=== PATIENT | female | born 1955 | race Caucasian/White ===

== ENCOUNTER 2018-03-06 12:56 | Inpatient (IN) | payer MEDICARE, OTHER ==
[2018-03-06] MEDS ORDERED: SODIUM CHLORIDE 0.9% 1,000 ML IV ONE ×2 (13:40→15:20)
[2018-03-06] MEDS ORDERED: diphenhydrAMINE 50 MG/ML 1 ML VIAL IVP STA ×2 (13:40→16:13)
[2018-03-06 14:28] LABS: Basophils % (A) 0 %; Eosinophils % (A) 0 %; HCT 35.9 % (34.0-46.0); HGB 11.9 gm/dL (11.4-16.0); Lymphocytes # (A) 1.1 k/uL (1.0-4.8); Lymphocytes % (A) 15 %; MCH 28.6 pg (25.0-35.0); MCHC 33.1 g/dL (31.0-37.0); MCV 86.3 fL (80.0-100.0); Mean Platelet Volume 7.6; Monocytes # (A) 0.5 k/uL (0-1.0); Monocytes % (A) 6 %; Neutrophils # (A) 6.2 k/uL (1.3-7.7); Neutrophils % (A) 78 %; Platelet Count 231 k/uL (150-450); RBC 4.16 m/uL (3.80-5.40); RDW 13.6 % (11.5-15.5); WBC 7.8 k/uL (3.8-10.6)
[2018-03-06 14:37] LABS: INR 1.1 (<1.2); Partial Thromboplastin Time 23.2 sec (22.0-30.0); Prothrombin Time 10.4 sec (9.0-12.0)
[2018-03-06 14:41] LABS: ALT 50 U/L (9-52); AST 61 U/L (14-36); Alkaline Phosphatase 97 U/L (38-126); Anion Gap 14 mmol/L; Blood Urea Nitrogen 20 mg/dL (7-17); Calcium 8.9 mg/dL (8.4-10.2); Carbon Dioxide 24 mmol/L (22-30); Chloride 106 mmol/L (98-107); Glucose 105 mg/dL (74-99); Potassium 3.6 mmol/L (3.5-5.1); Sodium 144 mmol/L (137-145); Total Bilirubin 1.2 mg/dL (0.2-1.3); Total Protein 6.7 g/dL (6.3-8.2)
--- NOTE | 2018-03-06 14:55 | ED ---
Psych HPI <Efrem Tsang - Last Filed: 03/06/18 18:06> - General Source: family, RN notes reviewed, old records reviewed Mode of arrival: ambulatory <Nikki Stanton - Last Filed: 03/06/18 18:32> - General Chief Complaint: Psychiatric Symptoms Stated Complaint: Mental Health Time Seen by Provider: 03/06/18 13:16 - History of Present Illness Initial Comments: 63-year-old female presents to the emergency department today chief complaint of an acute episode schizophrenia-like tendencies. Apparently patient was at her apartment complex and her siblings were called because she was talking to cars. They stated that she normally lives on her own and has not had an episode like this in many years. She's been stable on medications. They relate that she takes her medications on her own. They report that yesterday evening she was having very slow reactions. Today they report when he found her she was twitching a lot. Patient denies any pain or complaints at this time. They report that she's been on Clozaril pills and recieves them from [facility]. Her last one was 2 weeks ago. She is on 3 other medications that the family does not know. Patient does not know at this time. (iNkki Stanton) - Related Data Allergies Allergy/AdvReac Type Severity Reaction Status Date / Time aspirin Allergy Unknown Verified 03/06/18 13:01 Penicillins Allergy Unknown Verified 03/06/18 13:01 Review of Systems ROS Other: All systems not noted in ROS Statement are negative. <Efrem Tsang - Last Filed: 03/06/18 18:06> ROS Other: All systems not noted in ROS Statement are negative. <Nikki Stanton - Last Filed: 03/06/18 18:32> ROS Statement: Those systems with pertinent positive or pertinent negative responses have been documented in the HPI. Past Medical History Past Medical History: No Reported History History of Any Multi-Drug Resistant Organisms: None Reported Past Surgical History: Hernia Repair, Hysterectomy Past Psychological History: Schizophrenia Smoking Status: Former smoker Past Alcohol Use History: None Reported Past Drug Use History: None Reported <Nikki Stanton - Last Filed: 03/06/18 18:32> General Exam <Efrem Tsang - Last Filed: 03/06/18 18:06> Limitations: no limitations General appearance: alert, in no apparent distress Head exam: Present: atraumatic, normocephalic, normal inspection, other (No evidence of any trauma.) Eye exam: Present: normal appearance, PERRL, EOMI. Absent: scleral icterus, conjunctival injection, periorbital swelling ENT exam: Present: normal exam, mucous membranes moist Neck exam: Present: normal inspection. Absent: tenderness, meningismus, lymphadenopathy Respiratory exam: Present: normal lung sounds bilaterally. Absent: respiratory distress, wheezes, rales, rhonchi, stridor Cardiovascular Exam: Present: regular rate, normal rhythm, normal heart sounds. Absent: systolic murmur, diastolic murmur, rubs, gallop, clicks GI/Abdominal exam: Present: soft, normal bowel sounds. Absent: distended, tenderness, guarding, rebound, rigid Extremities exam: Present: normal inspection, full ROM, normal capillary refill. Absent: tenderness, pedal edema, joint swelling, calf tenderness Back exam: Present: normal inspection Neurological exam: Present: alert, oriented X3, abnormal gait Expanded Patient oriented to: Present: person Speech: Present: fluid speech Cranial nerves: EOM's Intact: Normal, Facial Sensation: Normal Cerebellar function: Finger to Nose: Abnormal Left (Patient unable to perform finger-nose that she is having dystonic movements.) Upper motor neuron: Pronator Drift: Abnormal Left (Unable to perform due to dystonic movements.) Sensory exam: Upper Extremity Light Touch: Normal, Lower Extremity Light Touch: Normal Motor strength exam: RUE: 5, LUE: 5, RLE: 5, LLE: 5 Eye Response: (4) open spontaneously Motor Response: (6) obeys commands Verbal Response: (5) oriented Brian Total: 15 Psychiatric exam: Present: normal mood, other (Patient's history is that she's been talking to her cars in the parking lot she lives. She's been altered and not wanting to let her family come in to her apartment today. Stating that people are coming after her.). Absent: normal affect Skin exam: Present: warm, dry, intact, normal color. Absent: rash <Nikki Stanton - Last Filed: 03/06/18 18:32> - General Exam Comments Initial Comments: Patient is a 63-year-old female. Exhibiting twitching like movement. Patient is alert and oriented. Temp any date of and where she is at. (Nikki Stanton) Course <Efrem Tsang - Last Filed: 03/06/18 18:06> <Nikki Stanton - Last Filed: 03/06/18 18:32> Vital Signs 03/06/18 03/06/18 12:57 16:00 Temperature 98.2 F 98.0 F Pulse Rate 90 57 L Respiratory 20 16 Rate Blood Pressure 140/65 O2 Sat by Pulse 98 Oximetry - Reevaluation(s) Reevaluation #1: 03/06/18 18:06 Patient reevaluated by myself, Dr. Tsang. Patient resting comfortably in bed. Family is updated. Case was discussed in detail with Dr. Calderon, who will admit for Dr. Garcia. Neurology and psychiatry will be placed on consult. (Efrem Tsang) 03/06/18 14:54 Patient is at route reevaluated this time. She is having less of a dystonic reaction after receiving Benadryl. Resting comfortably in bed with her siblings at her side. (Nikki Stanton) Medical Decision Making - Lab Data Result diagrams: 03/06/18 14:10 03/06/18 14:10 <Efrem Tsang - Last Filed: 03/06/18 18:06> - Lab Data Result diagrams: 03/06/18 14:10 03/06/18 14:10 - Radiology Data Radiology results: report reviewed <Nikki Stanton - Last Filed: 03/06/18 18:32> - Medical Decision Making 63-year-old female with history of long-standing schizophrenia to [place] presents emergency Department a chief complaint of hearing voices and talking to cars. Family brought her in. They report she's not had an episode of acute psychosis in the past 20 years. They state that she received her meds from [facility]. She is on 150 mg of Clozaril. Patient at this time is alert and oriented. She initially distributed dystonic reactions. I gave the patient IV Benadryl and check lab work. EKG showed no significant changes. Patient did have an elevated CK. Likely related to the dystonic reactions. Was given 2 L of fluid. She does suffer positive ketones in her urine. No significant renal damage due to the elevated CK. Patient did have some improvement with the dystonic reactions after 50 mg of Benadryl. She is able to lay in bed. Family states that she is somewhat to her baseline but still slightly altered. She seems to be very confused. CT brain computed tomography scan was completed. There is evidence of frontal atrophy likely related to chronic changes or remote trauma. Patient has had no history of falls or any head trauma. She has no signs or symptoms of head trauma including bruising or swelling on her scalp. I discussed the case with psychiatry. They evaluated the patient and felt that she needed admitted medically. Discussed with Dr. Tsang who also examined the patient. We will admit the patient medically frontal mental status , dehydration, elevated CK. When I reevaluated the patient she has been resting comfortably bed. She states that she is not hearing any voices. ( Nikki Stanton) - Lab Data Lab Results 03/06/18 03/06/18 03/06/18 Range/Units 14:10 14:10 14:10 WBC 7.8 (3.8-10.6) k/uL RBC 4.16 (3.80-5.40) m/uL Hgb 11.9 (11.4-16.0) gm/dL Hct 35.9 (34.0-46.0) % MCV 86.3 (80.0-100.0) fL MCH 28.6 (25.0-35.0) pg MCHC 33.1 (31.0-37.0) g/dL RDW 13.6 (11.5-15.5) % Plt Count 231 (150-450) k/uL Neutrophils % 78 % Lymphocytes % 15 % Monocytes % 6 % Eosinophils % 0 % Basophils % 0 % Neutrophils # 6.2 (1.3-7.7) k/uL Lymphocytes # 1.1 (1.0-4.8) k/uL Monocytes # 0.5 (0-1.0) k/uL Eosinophils # 0.0 (0-0.7) k/uL Basophils # 0.0 (0-0.2) k/uL PT (9.0-12.0) sec INR (<1.2) APTT (22.0-30.0) sec Sodium 144 (137-145) mmol/L Potassium 3.6 (3.5-5.1) mmol/L Chloride 106 (98-107) mmol/L Carbon Dioxide 24 (22-30) mmol/L Anion Gap 14 mmol/L BUN 20 H (7-17) mg/dL Creatinine 0.69 (0.52-1.04) mg/dL Est GFR (CKD-EPI)AfAm >90 (>60 ml/min/1.73 sqM) Est GFR (CKD-EPI)NonAf >90 (>60 ml/min/1.73 sqM) Glucose 105 H (74-99) mg/dL Calcium 8.9 (8.4-10.2) mg/dL Total Bilirubin 1.2 (0.2-1.3) mg/dL AST 61 H (14-36) U/L ALT 50 (9-52) U/L Alkaline Phosphatase 97 (38-126) U/L Total Creatine Kinase 1257 H (30-135) U/L CK-MB (CK-2) 10.2 H* (0.0-2.4) ng/mL CK-MB (CK-2) Rel Index 0.8 Troponin I <0.012 (0.000-0.034) ng/mL Total Protein 6.7 (6.3-8.2) g/dL Albumin 4.0 (3.5-5.0) g/dL Urine Color Urine Appearance (Clear) Urine pH (5.0-8.0) Ur Specific [place] (1.001-1.035) Urine Protein (Negative) Urine Glucose (UA) (Negative) Urine Ketones (Negative) Urine Blood (Negative) Urine Nitrite (Negative) Urine Bilirubin (Negative) Urine Urobilinogen (<2.0) mg/dL Ur Leukocyte Esterase (Negative) Urine RBC (0-5) /hpf Urine WBC (0-5) /hpf Ur Squamous Epith Cells (0-4) /hpf Urine Bacteria (None) /hpf Urine Mucus (None) /hpf Urine Opiates Screen (NotDetected) Ur Oxycodone Screen (NotDetected) Urine Methadone Screen (NotDetected) Ur Propoxyphene Screen (NotDetected) Ur Barbiturates Screen (NotDetected) U Tricyclic Antidepress (NotDetected) Ur Phencyclidine Scrn (NotDetected) Ur Amphetamines Screen (NotDetected) U Methamphetamines Scrn (NotDetected) U Benzodiazepines Scrn (NotDetected) Urine Cocaine Screen (NotDetected) U Marijuana (THC) Screen (NotDetected) 03/06/18 03/06/18 Range/Units 14:10 16:55 WBC (3.8-10.6) k/uL RBC (3.80-5.40) m/uL Hgb (11.4-16.0) gm/dL Hct (34.0-46.0) % MCV (80.0-100.0) fL MCH (25.0-35.0) pg MCHC (31.0-37.0) g/dL RDW (11.5-15.5) % Plt Count (150-450) k/uL Neutrophils % % Lymphocytes % % Monocytes % % Eosinophils % % Basophils % % Neutrophils # (1.3-7.7) k/uL Lymphocytes # (1.0-4.8) k/uL Monocytes # (0-1.0) k/uL Eosinophils # (0-0.7) k/uL Basophils # (0-0.2) k/uL PT 10.4 (9.0-12.0) sec INR 1.1 (<1.2) APTT 23.2 (22.0-30.0) sec Sodium (137-145) mmol/L Potassium (3.5-5.1) mmol/L Chloride (98-107) mmol/L Carbon Dioxide (22-30) mmol/L Anion Gap mmol/L BUN (7-17) mg/dL Creatinine (0.52-1.04) mg/dL Est GFR (CKD-EPI)AfAm (>60 ml/min/1.73 sqM) Est GFR (CKD-EPI)NonAf (>60 ml/min/1.73 sqM) Glucose (74-99) mg/dL Calcium (8.4-10.2) mg/dL Total Bilirubin (0.2-1.3) mg/dL AST (14-36) U/L ALT (9-52) U/L Alkaline Phosphatase (38-126) U/L Total Creatine Kinase (30-135) U/L CK-MB (CK-2) (0.0-2.4) ng/mL CK-MB (CK-2) Rel Index Troponin I (0.000-0.034) ng/mL Total Protein (6.3-8.2) g/dL Albumin (3.5-5.0) g/dL Urine Color Yellow Urine Appearance Clear (Clear) Urine pH 6.0 (5.0-8.0) Ur Specific [place] 1.026 (1.001-1.035) Urine Protein Trace H (Negative) Urine Glucose (UA) Negative (Negative) Urine Ketones 4+ H (Negative) Urine Blood Negative (Negative) Urine Nitrite Negative (Negative) Urine Bilirubin Negative (Negative) Urine Urobilinogen 2.0 (<2.0) mg/dL Ur Leukocyte Esterase Trace H (Negative) Urine RBC 1 (0-5) /hpf Urine WBC 1 (0-5) /hpf Ur Squamous Epith Cells <1 (0-4) /hpf Urine Bacteria Rare H (None) /hpf Urine Mucus Rare H (None) /hpf Urine Opiates Screen Not Detected (NotDetected) Ur Oxycodone Screen Not Detected (NotDetected) Urine Methadone Screen Not Detected (NotDetected) Ur Propoxyphene Screen Not Detected (NotDetected) Ur Barbiturates Screen Not Detected (NotDetected) U Tricyclic Antidepress Not Detected (NotDetected) Ur Phencyclidine Scrn Not Detected (NotDetected) Ur Amphetamines Screen Not Detected (NotDetected) U Methamphetamines Scrn Not Detected (NotDetected) U Benzodiazepines Scrn Not Detected (NotDetected) Urine Cocaine Screen Not Detected (NotDetected) U Marijuana (THC) Screen Not Detected (NotDetected) 03/06/18 17:22 EKG performed at 1606 shows sinus bradycardia with first-degree AV block. 5. Left anterior fascicular block. Biphasic block. Abnormal EKG noted. Ventricular rate 50 bpm. MT interval 232. QRS duration 154. QT QTc is 514/ 504. (Nikki Stanton) - Radiology Data Findings of extra-axial fluid over the frontal lobes could be due to remote trauma or possibly atrophy. No acute abdomen or maladies. Comparison of old films of benefit. Consider MRI. (Nikki Stanton) Disposition <Efrem Tsang - Last Filed: 03/06/18 18:06> Is patient prescribed a controlled substance at d/c from ED?: No If prescribed controlled substance>3 days was MAPS reviewed?: No When asked, does pt state using other controlled substances?: No Time of Disposition: 18:24 <Nikki Stanton - Last Filed: 03/06/18 18:32> Clinical Impression: Dehydration, Dystonic movements, Elevated CPK, Altered mental state Disposition: ADMITTED IP TO THIS [facility] Condition: Good Referrals: Sonia Echeverria MD [Primary Care Provider] - 1-2 days
[2018-03-06 15:05] LABS: Creatine Kinase 1257 U/L (30-135)
--- NOTE | 2018-03-06 15:05 | XR ---
EXAMINATION TYPE: XR chest 2V DATE OF EXAM: 03/06/2018 COMPARISON: NONE HISTORY: Altered mental status TECHNIQUE: Frontal and lateral views of the chest are obtained. FINDINGS: There is no focal air space opacity, pleural effusion, or pneumothorax seen. The cardiac silhouette size is possibly enlarged, exam is somewhat expiratory and rotated. The osseous structur es are intact. IMPRESSION: Suspect borderline enlarged heart. Expiratory rotated exam, follow-up as indicated.
[2018-03-06 15:18] LABS: Troponin I <0.012 ng/mL (0.000-0.034)
[2018-03-06 15:24] LABS: Creatine Kinase MB 10.2 ng/mL (0.0-2.4)
[2018-03-06] MEDS: SODIUM CHLORIDE 0.9% 1,000 ML IV SCH ×2 (15:32→23:48)
[2018-03-06 17:13] LABS: Appearance,Urine Clear (Clear); Bacteria,Urine Rare /hpf; Bilirubin,Urine Negative (Negative); Blood,Urine Negative (Negative); Color,Urine Yellow; Glucose,Urine (UA) Negative (Negative); Ketones,Urine 4+ (Negative); Leukocyte Esterase,Urine Trace (Negative); Mucus,Urine Rare /hpf; Nitrite,Urine Negative (Negative); Protein,Urine Trace (Negative); RBC,Urine 1 /hpf (0-5); Specific Gravity,Urine 1.026 (1.001-1.035); Squamous Epithelial Cell,Urine <1 /hpf (0-4); WBC,Urine 1 /hpf (0-5)
[2018-03-06 17:18] LABS: Amphetamine Screen,Urine Not Detected (NotDetected); Barbiturate Screen,Urine Not Detected (NotDetected); Benzodiazepines Screen,Urine Not Detected (NotDetected); Cocaine Screen,Urine Not Detected (NotDetected); Methadone Screen, Urine Not Detected (NotDetected); Opiate Screen,Urine Not Detected (NotDetected); Oxycodone Screen, Urine Not Detected (NotDetected); Phencyclidine Screen,Urine Not Detected (NotDetected); Tricyclic Antidepressant,Urine Not Detected (NotDetected); Urn Cannabinoid Scrn Not Detected (NotDetected)
--- NOTE | 2018-03-06 17:45 | CT ---
EXAMINATION TYPE: CT brain wo con DATE OF EXAM: 03/06/2018 COMPARISON: NONE HISTORY: Altered mental status. CT DLP: 1818.1 mGycm Automated exposure control for dose reduction was used. Helical imaging through the brain FINDINGS: There is no hemorrhage or hydrocephalus. Velasquez-white differentiation is maintained. No mass effect. Or bits show symmetric appearance. Mild atrophy is likely age-related. Extra-axial cerebral spinal fluid spaces somewhat prominent at the level of the frontal lobes. Cerumen present in the auditor tax y canal on the left. IMPRESSION: FINDINGS OF EXTRA-AXIAL FLUID OVER THE FRONTAL LOBES COULD BE DUE TO REMOTE TRAUMA OR POSSIBLY ATROPH Y . No acute abnormality. Comparison with old films would be of benefit if available. Consider MRI.
[2018-03-06] MEDS ORDERED: ONDANSETRON 4 MG/2 ML VIAL IVP PRN (18:25)
[2018-03-06] MEDS ORDERED: NALOXONE 0.4 MG/ML 1 ML VIAL IV PRN (18:25)
[2018-03-06] MEDS ORDERED: oxyCODONE-APAP 5-325MG 1 EACH TAB PO PRN (18:25)
[2018-03-06] MEDS ORDERED: KETOROLAC 30 MG/ML 1 ML VIAL IVP PRN (18:25)
[2018-03-06] MEDS ORDERED: ACETAMINOPHEN TAB 325 MG TAB PO PRN (18:25)
[2018-03-06] MEDS ORDERED: LORazepam 2 MG/ML INJ IV PRN (18:25)
--- NOTE | 2018-03-07 00:31 | P.HPIM ---
History of Present Illness H&P Date: 03/06/18 Chief Complaint: Acute psychosis Patient is a 63-year-old female with a known history of schizophrenia for the past 20 years with no recent active issues was brought to the hospital due to acute psychosis. Patient was apparently talking to cars at her apartment and her siblings were called.They stated that she normally lives on her own and has not had an episode like this in many years. She's been stable on medications. They relate that she takes her medications on her own. They report that yesterday evening she was having very slow reactions. Today they report when he found her she was twitching a lot. Patient denies any pain or complaints at this time. They report that she's been on Clozaril pills and recieves them from [facility]. Her last one was 2 weeks ago. She is on 3 other medications that the family does not know at this time. Chest x-ray showed borderline cardio megaly UA negative for infection. Ketones positive CT head showed extra-axial fluid over the frontal lobes could be due to remote trauma or possible atrophy. No acute abnormality noted. Comparison to old imaging was recommended. CPK 1257 Review of Systems Complete review of systems could not be obtained from the patient Past Medical History Past Medical History: No Reported History History of Any Multi-Drug Resistant Organisms: None Reported Past Surgical History: Hernia Repair, Hysterectomy Past Psychological History: Schizophrenia Smoking Status: Never smoker Past Alcohol Use History: None Reported Past Drug Use History: None Reported Medications and Allergies Home Medications Medication Instructions Recorded Confirmed Type Unable To Assess [Unable to Assess] 03/06/18 03/06/18 History Allergies Allergy/AdvReac Type Severity Reaction Status Date / Time aspirin Allergy Unknown Verified 03/06/18 13:01 Penicillins Allergy Unknown Verified 03/06/18 13:01 Physical Exam Vitals: Vital Signs Temp Pulse Pulse Resp BP BP Pulse Ox 03/06/18 19:38 98 F 57 L 20 151/77 97 03/06/18 19:09 99.6 F 62 18 140/62 98 03/06/18 16:00 98.0 F 57 L 16 03/06/18 12:57 98.2 F 90 20 140/65 98 Intake and Output 03/06/18 03/06/18 03/06/18 06:59 14:59 22:59 Other: Weight 113.398 kg 91.626 kg PHYSICAL EXAMINATION: Patient is lying in the bed comfortably, no acute distress, awake alert but could not provide any history. Patient does have tremors and shaking movements. HEENT: Normocephalic. Neck is supple. Pupils reactive. Nostrils clear. Oral cavity is moist. Ears reveal no drainage. Neck reveals no JVD, carotid bruits, or thyromegaly. CHEST EXAMINATION: Trachea is central. Symmetrical expansion. Lung toth clear to auscultation and percussion. CARDIAC: Normal S1, S2 with no gallops. No murmurs ABDOMEN: Soft. Bowel sounds normal. No organomegaly. No abdominal bruits. Extremities: reveal no edema. No clubbing or cyanosis Neurologically awake, alert. Able to move all extremities. Not oriented.. No focal deficits noted Skin: No rash or skin lesions. Psychiatric: Not cooperative Musculoskeletal: No joint swelling or deformity. Normal range of motion. Results CBC & Chem 7: 03/06/18 14:10 03/06/18 14:10 Labs: Abnormal Lab Results - Last 24 Hours (Table) 03/06/18 03/06/18 03/06/18 Range/Units 14:10 14:10 16:55 BUN 20 H (7-17) mg/dL Glucose 105 H (74-99) mg/dL AST 61 H (14-36) U/L Total Creatine Kinase 1257 H (30-135) U/L CK-MB (CK-2) 10.2 H* (0.0-2.4) ng/mL Urine Protein Trace H (Negative) Urine Ketones 4+ H (Negative) Ur Leukocyte Esterase Trace H (Negative) Urine Bacteria Rare H (None) /hpf Urine Mucus Rare H (None) /hpf Thrombosis Risk Factor Assmnt - Choose All That Apply Any of the Below Risk Factors Present?: Yes Each Factor Represents 1 point: Obesity (BMI >25) Other Risk Factors: Yes Each Risk Factor Represents 2 Points: Age 61-74 years Thrombosis Risk Factor Assessment Total Risk Factor Score: 3 Thrombosis Risk Factor Assessment Level: Moderate Risk Assessment and Plan Assessment: Acute psychosis Dystonic movements History of schizophrenia for the past 20 years Mild dehydration Mild rhabdomyolysis with elevated CPK Altered mental status secondary to psychosis Plan: Patient was started on Ativan when necessary for agitation. Psychiatry evaluation. Bedside sitter and follow up closely. Gentle hydration but patient does not want to keep IV line. Further recommendations based on the clinical course. Follow-up precautions and close monitoring. Time with Patient: Greater than 30
[2018-03-07] MEDS: PANTOPRAZOLE 40 MG/10 ML VIAL IV SCH (08:09)
[2018-03-07 11:40] LABS: Basophils % (A) 0 %; Eosinophils # (A) 0.1 k/uL (0-0.7); Eosinophils % (A) 1 %; HCT 32.2 % (34.0-46.0); HGB 10.4 gm/dL (11.4-16.0); Lymphocytes # (A) 1.2 k/uL (1.0-4.8); Lymphocytes % (A) 18 %; MCHC 32.1 g/dL (31.0-37.0); MCV 87.2 fL (80.0-100.0); Mean Platelet Volume 7.6; Monocytes # (A) 0.4 k/uL (0-1.0); Monocytes % (A) 6 %; Neutrophils # (A) 4.8 k/uL (1.3-7.7); Neutrophils % (A) 75 %; Platelet Count 183 k/uL (150-450); RDW 13.6 % (11.5-15.5); WBC 6.5 k/uL (3.8-10.6)
[2018-03-07 11:54] LABS: Anion Gap 13 mmol/L; Blood Urea Nitrogen 12 mg/dL (7-17); Calcium 8.1 mg/dL (8.4-10.2); Carbon Dioxide 21 mmol/L (22-30); Chloride 109 mmol/L (98-107); Glucose 93 mg/dL (74-99); Potassium 3.6 mmol/L (3.5-5.1); Sodium 143 mmol/L (137-145)
--- NOTE | 2018-03-07 14:42 | P.CNNES ---
History of Present Illness Consult date: 03/07/18 Requesting physician: Ronnie Calderon Reason for Consult: Altered mental status History of Present Illness: Patient is a 63-year-old female who is being evaluated by the neurology service on 03/07/2018 per the request of Dr. Calderon for altered mental status. Patient has known history of schizophrenia for the past 20 years. Reportedly, patient is able to take her on medication. Patient was apparently talking to converse at her apartment and her siblings were called. Patient lives alone and has not had an episode like this in many years according to the family. Family reports when they found her she was twitching. Family states patient has been on Clozaril pills and receives them from [facility]. Family states patient is on other medication as well but they do not know what they are. Reportedly, patient also has been having dystonic movements. Patient was recently given Ativan and no dystonic movements were seen on my visit. Computed tomography scan of the brain was done which showed extra-axial fluid over the frontal lobes could be due to remote trauma or possible atrophy. There was no acute abnormality on computed tomography scan of the brain. Recommendation is to obtain an MRI. Vital signs on admission were temperature 98.0, pulse 57, respirations 20, what pressure 151/77, pulse ox 97% on room air. Labs on admission showed BUN 20, creatinine 0.69, glucose 105, CK-MB 10.2. Urinalysis was negative for infection. At the time of my evaluation, patient's resting comfortably in bed and appears to be in no acute distress. Patient awakens to questions and quickly drifts back off to sleep. Patient was recently given Ativan. Review of Systems REVIEW OF SYSTEMS: Otherwise unremarkable and noncontributory. Past Medical History Past Medical History: No Reported History History of Any Multi-Drug Resistant Organisms: None Reported Past Surgical History: Hernia Repair, Hysterectomy Past Psychological History: Schizophrenia Smoking Status: Never smoker Past Alcohol Use History: None Reported Past Drug Use History: None Reported Medications and Allergies Home Medications Medication Instructions Recorded Confirmed Type Furosemide [Lasix] 20 mg PO DAILY PRN 03/07/18 03/07/18 History Levothyroxine Sodium [Synthroid] 75 mcg PO DAILY 03/07/18 03/07/18 History Losartan/Hydrochlorothiazide 1 tab PO DAILY 03/07/18 03/07/18 History [Losartan-Hctz 50-12.5 mg Tab] Sertraline [Zoloft] 100 mg PO DAILY 03/07/18 03/07/18 History cloZAPine [Clozaril] 50 mg PO HS 03/07/18 03/07/18 History cloZAPine [Clozaril] 100 mg PO HS 03/07/18 03/07/18 History Allergies Allergy/AdvReac Type Severity Reaction Status Date / Time aspirin Allergy Unknown Verified 03/07/18 12:42 Penicillins Allergy Unknown Verified 03/07/18 12:42 Physical Examination - Vital Signs Vital Signs: Vital Signs Temp Pulse Pulse Resp BP BP Pulse Ox 03/07/18 08:00 46 L 20 03/07/18 06:22 98 F 46 L 20 125/60 97 03/06/18 23:00 97.8 F 57 L 20 132/64 94 L 03/06/18 19:38 98 F 57 L 20 151/77 97 03/06/18 19:09 99.6 F 62 18 140/62 98 03/06/18 16:00 98.0 F 57 L 16 Intake and Output 03/06/18 03/07/18 03/07/18 22:59 06:59 14:59 Intake Total 250 100 Output Total 500 Balance 250 -400 Intake: Oral 250 100 Output: Urine 500 Other: # Voids 0 Weight 91.626 kg PHYSICAL EXAM: GENERAL APPEARANCE: Patient is a well-developed, female who appears to be in no acute distress. HEENT: Normocephalic, atraumatic, no facial asymmetry is seen. Neck is supple with no masses felt. CARDIOVASCULAR: Regular rate and rhythm. ABDOMEN: Nontender, nondistended. EXTREMITIES: Show no edema or clubbing. NEUROLOGICAL EXAM: Patient is awake, alert, and oriented 2. Patient not sure what year this is. Speech and language are normal. Strength is full in all 4 extremities. Sensory exam to light touch was limited due to patient quickly drifting back off to sleep. No obvious facial asymmetry is noted. No tremors or seizure-like activity noted. Results - Laboratory Findings CBC and BMP: 03/07/18 11:22 03/07/18 11:22 Abnormal Lab Findings: Abnormal Labs 03/06/18 03/06/18 03/06/18 14:10 14:10 16:55 RBC Hgb Hct Chloride Carbon Dioxide BUN 20 H Glucose 105 H Calcium AST 61 H Total Creatine Kinase 1257 H CK-MB (CK-2) 10.2 H* Urine Protein Trace H Urine Ketones 4+ H Ur Leukocyte Esterase Trace H Urine Bacteria Rare H Urine Mucus Rare H 03/07/18 03/07/18 11:22 11:22 RBC 3.70 L Hgb 10.4 L Hct 32.2 L Chloride 109 H Carbon Dioxide 21 L BUN Glucose Calcium 8.1 L AST Total Creatine Kinase CK-MB (CK-2) Urine Protein Urine Ketones Ur Leukocyte Esterase Urine Bacteria Urine Mucus Assessment and Plan Plan: Impression: 1. Acute psychosis 2. Dystonic movements 3. History of schizophrenia 4. Rhabdomyolysis 5. Abnormal CT Recommendations: It does appear patient is having an episode of acute psychosis with dystonic movements. It is not clear whether patient has been taking her medications as recommended. Computed tomography scan shows extra-axial fluid in the frontal lobes. I will order an MRI for further evaluation. No obvious lateralizing weakness on exam. No facial asymmetry. Psych consult noted. Most likely this altered mental status is related to her acute psychosis. Can use Benadryl 25 mg IM or IVP as needed for dystonic movements. Continue neurological checks. I will continue to follow with you. Further recommendations following the MRI. Thank you for allowing me to participate in the care of your patient. Feel free to call with any questions or concerns. I performed an examination of the patient and discussed the management with the DISH STACKER. I have reviewed the DISH STACKER notes and agree with the findings and plan of care.
[2018-03-07] MEDS: LEVOTHYROXINE 75 MCG TAB PO SCH (16:04)
[2018-03-07] MEDS: SERTRALINE 100 MG TAB PO SCH (16:04)
[2018-03-07] MEDS: LOSARTAN-HCTZ 50-12.5 MG 1 EACH TAB PO SCH (16:04)
[2018-03-07] MEDS: SODIUM CHLORIDE 0.9% 1,000 ML IV SCH (17:57)
--- NOTE | 2018-03-07 19:45 | CONS ---
CONSULTATION DATE OF SERVICE/DICTATION: 03/07/2018. IDENTIFYING DATA: This patient is a 63-year-old single female who was admitted to the hospital with acute changes in her behavior. HISTORY OF PRESENT ILLNESS: The patient does have an established diagnosis of schizophrenia. She has been treated with Clozaril for numerous years and attends treatment at [facility]. The patient presented to the hospital with acute symptoms of psychosis. There are reports that she had symptoms resembling a dystonic reaction, shaking. Laboratory studies revealed an elevated CPK of 1257. Nursing reports that the patient was agitated, not oriented and could not provide any history. Ativan was used to calm her and that has been effective at 0.5 mg IV. With me this morning, the patient is found in bed. She has her eyes closed. She is verbally arousable. She is able to state her name. She is able to state the current location. She is aware that she is in [facility], but does not know why, and states that she woke up here at approximately 3:00 am. She is able to acknowledge that she is on Clozaril and Zoloft 150 mg and 100 mg respectively. Initially, she indicates that she has been taking her medications and then later states she may have been missing doses. During interview, her brother arrives and he attempted to provide collateral information. The patient has been residing in her own apartment and he checked her medication bottles and he feels that the amount in the bottle indicates she has been taking her medicine. He did not find any loose pills lying around or in the garbage. The patient describes her mood as being weird. She indicates that she is having some rib pain. She reports no thoughts of harming herself or others. She indicates she is not experiencing any hallucinations. Again, nursing staff indicated the patient had been agitated earlier last evening, making derogatory statements and attempting to harm staff. PAST PSYCHIATRIC HISTORY: Per family, the patient has been hospitalized numerous times on mental health units. It appears her symptoms of psychosis are emerged at age 17. She has been on Clozaril for numerous years and has done quite well. Her brother reports she has been in the same apartment for 10 years. The patient indicates she has had no history of suicide attempts. It is unclear what other psychotropic medication she may have used in the past prior to Clozaril. PAST MEDICAL HISTORY: She is treated for hypertension and hypothyroidism. She is on Synthroid, Lasix and losartan hydrochlorothiazide. ALLERGIES: ASPIRIN, PENICILLINS. CHEMICAL DEPENDENCY HISTORY: No reported substance use. SOCIAL HISTORY: The patient is single. She has no children. She resides in her own apartment. She is on disability income. Her brother is her payee. MENTAL STATUS EXAM: The patient is a female appearing her stated age. She has short white hair. She is lying in bed in no acute distress. During our interview, she demonstrates some tremor of her involving her head and upper extremities that is low-amplitude in nature. She for the most part, keeps her eyes closed. She opens her eyes only twice during our conversation. She is dressed in hospital attire and is covered in a blanket. She indicates that her mood is "weird." She denies having any suicidal or homicidal ideation. She denies having any auditory or visual hallucinations. She states that she feels safe. She is oriented to person, place, day, month, but did not name the year. Insight and judgment impaired. She demonstrated no verbal or physical aggressiveness during my interaction with her. IMPRESSION: Schizophrenia, chronic, suspect delirium at this time. PLAN: The patient seems to be demonstrating a waxing and waning ability to provide orientation information which is classic for delirium. Nursing indicates that the patient was not oriented and could not provide historical information last evening or even this morning. The family believes that the patient has been taking her medication appropriately, but there is no strict oversight. Her only lab abnormality at this time is the elevated CPK. It is possible with a clozapine overdose the patient could experience rhabdomyolysis as well as seizure. The patient is going to be seeing Neurology. The head CT report seems to be consistent with someone who has chronic schizophrenia regarding atrophy of the brain. At this point, we will order a Clozaril level and not restart the medication yet. Normally Clozaril is known for not causing symptoms of dystonia or tremor. She is receiving IV hydration. Ativan appears to be effectively calming her. We will continue to follow her closely. MMODL / IJN: [id number] /
[2018-03-07] MEDS: cloZAPine 100 MG TAB PO SCH (20:56)
[2018-03-07] MEDS: cloZAPine 25 MG TAB PO SCH (20:56)
[2018-03-07] MEDS: HEPARIN SODIUM,PORCINE 5,000 UNIT/ML 1 ML VIAL SQ SCH (20:56)
--- NOTE | 2018-03-08 00:55 | P.PN ---
Subjective Progress Note Date: 03/07/18 Principal diagnosis: Acute psychosis and dystonic movements Patient is a 63-year-old female with a known history of schizophrenia for the past 20 years with no recent active issues was brought to the hospital due to acute psychosis. Patient was apparently talking to cars at her apartment and her siblings were called.They stated that she normally lives on her own and has not had an episode like this in many years. She's been stable on medications. They relate that she takes her medications on her own. They report that yesterday evening she was having very slow reactions. Today they report when he found her she was twitching a lot. Patient denies any pain or complaints at this time. They report that she's been on Clozaril pills and recieves them from [facility]. Her last one was 2 weeks ago. She is on 3 other medications that the family does not know at this time. Chest x-ray showed borderline cardio megaly UA negative for infection. Ketones positive CT head showed extra-axial fluid over the frontal lobes could be due to remote trauma or possible atrophy. No acute abnormality noted. Comparison to old imaging was recommended. CPK 1257 03/07/2018 Patient is able to open her eyes and and response to simple questions with one- word. Slightly improved clinically otherwise. Neurology has seen the patient and MRI of the brain was ordered due to abdominal CT head. Otherwise patient will be started back on her home medications obtained from her pharmacy. Patient is unable to eat very well. No complaints of chest pain or shortness of breath. Complete review of systems could not be obtained from the patient. Current medications reviewed. Objective - Vital Signs Vital signs: Vital Signs Temp 98.0 F 03/07/18 15:00 Pulse 61 03/07/18 15:24 Resp 20 03/07/18 15:24 BP 118/65 03/07/18 15:00 Pulse Ox 96 03/07/18 15:00 Intake & Output 03/06/18 03/07/18 03/07/18 18:59 06:59 18:59 Intake Total 350 200 Output Total 500 Balance -150 200 Weight 113.398 kg 91.626 kg Intake: Oral 350 200 Output: Urine 500 Other: # Voids 0 - Exam Patient is lying in the bed comfortably, no acute distress, awake alert . Able to respond with single words.. HEENT: Normocephalic. Neck is supple. Pupils reactive. Nostrils clear. Oral cavity is moist. Ears reveal no drainage. Neck reveals no JVD, carotid bruits, or thyromegaly. CHEST EXAMINATION: Trachea is central. Symmetrical expansion. Lung toth clear to auscultation and percussion. CARDIAC: Normal S1, S2 with no gallops. No murmurs ABDOMEN: Soft. Bowel sounds normal. No organomegaly. No abdominal bruits. Extremities: reveal no edema. No clubbing or cyanosis Neurologically awake, alert. Able to move all extremities. Not oriented.. No focal deficits noted Skin: No rash or skin lesions. Psychiatric: Not cooperative Musculoskeletal: No joint swelling or deformity. Normal range of motion. - Labs CBC & Chem 7: 03/07/18 11:22 03/07/18 11:22 Labs: Abnormal Lab Results - Last 24 Hours (Table) 03/06/18 03/07/18 03/07/18 Range/Units 16:55 11:22 11:22 RBC 3.70 L (3.80-5.40) m/uL Hgb 10.4 L (11.4-16.0) gm/dL Hct 32.2 L (34.0-46.0) % Chloride 109 H (98-107) mmol/L Carbon Dioxide 21 L (22-30) mmol/L Calcium 8.1 L (8.4-10.2) mg/dL Urine Protein Trace H (Negative) Urine Ketones 4+ H (Negative) Ur Leukocyte Esterase Trace H (Negative) Urine Bacteria Rare H (None) /hpf Urine Mucus Rare H (None) /hpf Assessment and Plan Assessment: Acute psychosis Dystonic movements History of schizophrenia for the past 20 years Mild dehydration Mild rhabdomyolysis with elevated CPK Altered mental status secondary to psychosis Abnormal CT head. MRI was ordered. Plan: Patient was started on Ativan when necessary for agitation. Psychiatry evaluation. Bedside sitter and follow up closely. Neurology is following as well. Gentle hydration but patient does not want to keep IV line. Further recommendations based on the clinical course. Continue with close monitoring.. Time with Patient: Greater than 30
[2018-03-08] MEDS: LEVOTHYROXINE 75 MCG TAB PO SCH (06:21)
[2018-03-08] MEDS: PANTOPRAZOLE 40 MG/10 ML VIAL IV SCH (07:50)
[2018-03-08] MEDS: HEPARIN SODIUM,PORCINE 5,000 UNIT/ML 1 ML VIAL SQ SCH ×2 (07:50→21:24)
[2018-03-08] MEDS: LOSARTAN-HCTZ 50-12.5 MG 1 EACH TAB PO SCH (07:50)
[2018-03-08] MEDS: SODIUM CHLORIDE 0.9% 1,000 ML IV SCH ×2 (07:51→21:25)
[2018-03-08] MEDS: SERTRALINE 100 MG TAB PO SCH (07:51)
[2018-03-08 08:48] LABS: HCT 34.4 % (34.0-46.0); HGB 11.4 gm/dL (11.4-16.0); MCH 28.9 pg (25.0-35.0); MCV 87.6 fL (80.0-100.0); Mean Platelet Volume 8.2; Platelet Count 203 k/uL (150-450); RBC 3.93 m/uL (3.80-5.40); RDW 13.8 % (11.5-15.5)
--- NOTE | 2018-03-08 12:50 | MR ---
MR brain without contrast HISTORY: Headache, altered mental status, abnormal head CT Multiplanar multisequence imaging through the brain Correlation to head CT 03/06/2018 There is no restricted diffusion. No hemorrhage or hydrocephalus. Velasquez-white differentiation is maint ained. There is some White matter demyelination which is confluent periventricular, deep white matter . Cerebellopontine angles, corpus callosum, cervical medullary junction are normal. There is a partia lly empty sella. Orbits show symmetric appearance. Minimal inflammatory change present in the ethmoid air cells. Mastoids appear well aerated. The prominence of the extra-axial fluid spaces and frontal lobes is stable and likely due to atrophy rather than arachnoid cyst. There are normal vascular flow voids. IMPRESSION: Age-related atrophy and chronic small vessel ischemia. Mild sinus disease.
--- NOTE | 2018-03-08 13:06 | P.CN ---
Psychiatric Consult - . Consult date: 03/08/18 Consult:: 03/08/18 13:02 Patient was seen for a psychiatric consult regarding "psychiatric care". Patient apparently was admitted to the unit since she was confused. Her workup showed UTI and eventually MRI showed lacunar infarct. The nurse reported that patient is a lot clearer today and makes better sense. When I tried to talk to the patient she was not able to provide good history. On she would tell me is she has a family doctor Dr. Echeverria and sees a psychiatrist at [facility] who sees her every 3 months for medication review. She does not have any psychiatric complaint/concerned at this point. She is polite friendly and cooperative. Her mood is cheerful and affect is appropriate to the thought content, she does not show any psychomotor agitation or retardation. She reports of thoughts of seeing a camel at times. She denies other hallucinations or delusional thinking she denies suicide and homicide thoughts. She is well oriented with adequate memory. Suggestion: She can be discharged with an appointment with her psychiatrist within a week of discharge for further psychiatric management once she is medically cleared.
--- NOTE | 2018-03-08 15:28 | P.DS ---
Providers Date of admission: 03/07/18 08:36 Expected date of discharge: 03/08/18 Attending physician: Ronnie Calderon Consults: 03/06/18 18:06 Consult Physician Urgent Consulting Provider: Derick Melendez Consult Reason/Comments: Psychiatric care Do you want consulting provider notified?: Yes 03/06/18 18:07 Consult Physician Urgent Consulting Provider: Estephania Dorman Consult Reason/Comments: ams Do you want consulting provider notified?: Yes Primary care physician: Jacki Scott Hospital Course: Final Diagnoses: Acute psychosis Dystonic movements History of schizophrenia for the past 20 years Mild dehydration Mild rhabdomyolysis with elevated CPK Altered mental status secondary to psychosis Abnormal CT head. MRI reported age-related atrophy, chronic small vessel ischemia. Hospital course:Acute psychosis and dystonic movements Patient is a 63-year-old female with a known history of schizophrenia for the past 20 years with no recent active issues was brought to the hospital due to acute psychosis. Patient was apparently talking to cars at her apartment and her siblings were called.They stated that she normally lives on her own and has not had an episode like this in many years. She's been stable on medications. They relate that she takes her medications on her own. They report that yesterday evening she was having very slow reactions. Today they report when he found her she was twitching a lot. Patient denies any pain or complaints at this time. They report that she's been on Clozaril pills and recieves them from [facility]. Her last one was 2 weeks ago. She is on 3 other medications that the family does not know at this time. Chest x-ray showed borderline cardio megaly UA negative for infection. Ketones positive CT head showed extra-axial fluid over the frontal lobes could be due to remote trauma or possible atrophy. No acute abnormality noted. Comparison to old imaging was recommended. CPK 1257 03/07/2018 Patient is able to open her eyes and and response to simple questions with one- word. Slightly improved clinically otherwise. Neurology has seen the patient and MRI of the brain was ordered due to abdominal CT head. Otherwise patient will be started back on her home medications obtained from her pharmacy. Patient is unable to eat very well. No complaints of chest pain or shortness of breath. 03/08/2018 overnight events. MRI completed, reporting age-related atrophy, chronic small vessel ischemia. Significant clinical improvement. Evaluated by psychiatry. Cleared by both psychiatry and neurology for discharge. Patient is being discharged home with home care in a stable condition with guarded prognosis. Patient to follow-up with [facility] psychiatrist within 1 week. Patient is lying in the bed comfortably, no acute distress, awake alert . Able to respond with single words.. HEENT: Normocephalic. Neck is supple. Pupils reactive. Nostrils clear. Oral cavity is moist. Ears reveal no drainage. Neck reveals no JVD, carotid bruits, or thyromegaly. CHEST EXAMINATION: Trachea is central. Symmetrical expansion. Lung toth clear to auscultation and percussion. CARDIAC: Normal S1, S2 with no gallops. No murmurs ABDOMEN: Soft. Bowel sounds normal. No organomegaly. No abdominal bruits. Extremities: reveal no edema. No clubbing or cyanosis Neurologically awake, alert. Able to move all extremities. Not oriented.. No focal deficits noted Skin: No rash or skin lesions. Psychiatric: Not cooperative Musculoskeletal: No joint swelling or deformity. Normal range of motion. The impression and plan of care has been dictated as directed. : I performed a history and examination of this patient, discussed the same with the dictator. I agree with the dictator's note ,documented as a scribe. Any additional findings or plans will be noted. Time taken: 35 minutes Patient Condition at Discharge: Stable Plan - Discharge Summary New Discharge Prescriptions: New Acetaminophen Tab [Tylenol] 650 mg PO Q6HR PRN tab PRN Reason: Mild Pain Or Fever > 100.5 Pantoprazole [Protonix] 40 mg PO -[facility]30 tablet.dr Continue Levothyroxine Sodium [Synthroid] 75 mcg PO DAILY cloZAPine [Clozaril] 100 mg PO HS cloZAPine [Clozaril] 50 mg PO HS Sertraline [Zoloft] 100 mg PO DAILY Losartan/Hydrochlorothiazide [Losartan-Hctz 50-12.5 mg Tab] 1 tab PO DAILY No Action Furosemide [Lasix] 20 mg PO DAILY PRN PRN Reason: Edema Discharge Medication List Furosemide [Lasix] 20 mg PO DAILY PRN 03/07/18 [History] Levothyroxine Sodium [Synthroid] 75 mcg PO DAILY 03/07/18 [History] Losartan/Hydrochlorothiazide [Losartan-Hctz 50-12.5 mg Tab] 1 tab PO DAILY 03/07 [History] Sertraline [Zoloft] 100 mg PO DAILY 03/07/18 [History] cloZAPine [Clozaril] 50 mg PO HS 03/07/18 [History] cloZAPine [Clozaril] 100 mg PO HS 03/07/18 [History] Acetaminophen Tab [Tylenol] 650 mg PO Q6HR PRN tab 03/08/18 [Rx] Pantoprazole [Protonix] 40 mg PO [id number] #30 tablet. 03/08/18 [Rx] Follow up Appointment(s)/Referral(s): Dr. ZAIN Psychiatry [Other] - 1 Week [facility], [NON-STAFF] - Sonia Echeverria MD [Primary Care Provider] - 3 Days Estephania Dorman MD [STAFF PHYSICIAN] - 2 Weeks Activity/Diet/Wound Care/Special Instructions: rehab services aide already on patient's case as per case management. Discharge Disposition: HOME WITH HOME HEALTH SERVICES
--- NOTE | 2018-03-08 17:15 | P.PN ---
Subjective Progress Note Date: 03/08/18 Patient is a pleasant 63-year-old female being followed by the neurology service for altered mental status. Patient has known history of schizophrenia and had psychotic episode that was witnessed. Patient was brought to [facility] for evaluation. Patient had CT of the brain which showed extra-axial fluid over the frontal lobes which could be related to remote, or possible atrophy. MRI was done which showed no acute process. MRI did show age-related atrophy and chronic small vessel ischemia. She is much improved today. She is awake and alert and sitting up in chair. Psychiatry consult noted. No further dystonic movement reported. At the time of my evaluation, patient sitting up in the chair visiting with family and appears to be in no acute distress. Objective - Vital Signs Vital signs: Vital Signs Temp 98.4 F 03/08/18 14:03 Pulse 84 03/08/18 14:03 Resp 16 03/08/18 14:03 BP 99/63 03/08/18 14:03 Pulse Ox 98 03/08/18 14:03 Intake & Output 03/07/18 03/08/18 03/08/18 18:59 06:59 18:59 Intake Total 200 1250 Output Total 2500 Balance 200 -2500 1250 Intake: Oral 200 1250 Output: Urine 2500 Other: Voiding Method Bedside Commode # Voids 1 2 # Bowel Movements 0 - Exam PHYSICAL EXAM: GENERAL APPEARANCE: Patient is a well-developed, female who appears to be in no acute distress. HEENT: Normocephalic, atraumatic, no facial asymmetry is seen. Neck is supple with no masses felt. CARDIOVASCULAR: Regular rate and rhythm. ABDOMEN: Nontender, nondistended. EXTREMITIES: Show no edema or clubbing. NEUROLOGICAL EXAM: Patient is awake, alert, and oriented 3. Speech and language are normal. Strength is full in all 4 extremities. Sensory exam to light touch is normal in all 4 extremities. No facial asymmetry is seen on cranial nerve testing. No tremors or seizure-like activity noted. - Labs CBC & Chem 7: 03/08/18 08:12 03/07/18 11:22 Assessment and Plan Plan: Impression: 1. Acute psychosis 2. Dystonic movements 3. History of schizophrenia 4. Rhabdomyolysis 5. Abnormal CT Recommendations: It does appear patient had episode of acute psychosis with dystonic movements. It is not clear whether patient has been taking her medications as recommended. Computed tomography scan shows extra-axial fluid in the frontal lobes. MRI of the brain showed no acute intracranial process. MRI of the brain did show small vessel ischemic disease and age-related atrophy. No obvious lateralizing weakness on exam. No facial asymmetry. Psych consult noted. Most likely this altered mental status is related to her acute psychosis. Continue neurological checks. I will continue to follow with you on an as-needed basis. Feel free to call with any questions or concerns. Patient is stable for discharge from a neurological standpoint. I performed an examination of the patient and discussed the management with the COMBAT CONTROL MANAGER. I have reviewed the COMBAT CONTROL MANAGER notes and agree with the findings and plan of care.
[2018-03-08] MEDS: cloZAPine 100 MG TAB PO SCH (21:24)
[2018-03-08] MEDS: cloZAPine 25 MG TAB PO SCH (21:24)
--- NOTE | 2018-03-08 22:39 | P.PN ---
Subjective Progress Note Date: 03/08/18 Principal diagnosis: Acute psychosis and dystonic movements Patient is a 63-year-old female with a known history of schizophrenia for the past 20 years with no recent active issues was brought to the hospital due to acute psychosis. Patient was apparently talking to cars at her apartment and her siblings were called.They stated that she normally lives on her own and has not had an episode like this in many years. She's been stable on medications. They relate that she takes her medications on her own. They report that yesterday evening she was having very slow reactions. Today they report when he found her she was twitching a lot. Patient denies any pain or complaints at this time. They report that she's been on Clozaril pills and recieves them from [facility]. Her last one was 2 weeks ago. She is on 3 other medications that the family does not know at this time. Chest x-ray showed borderline cardio megaly UA negative for infection. Ketones positive CT head showed extra-axial fluid over the frontal lobes could be due to remote trauma or possible atrophy. No acute abnormality noted. Comparison to old imaging was recommended. CPK 1257 03/07/2018 Patient is able to open her eyes and and response to simple questions with one- word. Slightly improved clinically otherwise. Neurology has seen the patient and MRI of the brain was ordered due to abdominal CT head. Otherwise patient will be started back on her home medications obtained from her pharmacy. Patient is unable to eat very well. No complaints of chest pain or shortness of breath. 03/08/2018 Patient is more awake and oriented today. Able to sit in the chair and was able to park sputum in physical therapy. Otherwise patient says that she is feeling very weak and unable to stand by herself. PT OT recommends home with PT. Otherwise MRI was done which showed no acute process. MRI did show age- related atrophy and chronic small vessel ischemia. Patient was seen by psychiatric and neurology. No further recommendations at this time. Anticipate discharged tomorrow with more clinical improvement. No complaints of chest pain or shortness of breath. No nausea vomiting or abdominal pain. Patient is tolerating oral diet. Patient was started back on home medications. All other review of systems negative except the above. Patient is somewhat poor historian as well. Current medications reviewed. Objective - Vital Signs Vital signs: Vital Signs Temp 98.4 F 03/08/18 14:03 Pulse 84 03/08/18 14:03 Resp 16 03/08/18 14:03 BP 99/63 03/08/18 14:03 Pulse Ox 98 03/08/18 14:03 Intake & Output 03/08/18 03/08/18 03/09/18 06:59 18:59 06:59 Intake Total 1850 Output Total 2500 Balance -2500 1850 Intake: Oral 1850 Output: Urine 2500 Other: Voiding Method Bedside Commode # Voids 2 # Bowel Movements 0 - Exam Patient is lying in the bed comfortably, no acute distress, awake alert and oriented 2 HEENT: Normocephalic. Neck is supple. Pupils reactive. Nostrils clear. Oral cavity is moist. Ears reveal no drainage. Neck reveals no JVD, carotid bruits, or thyromegaly. CHEST EXAMINATION: Trachea is central. Symmetrical expansion. Lung toth clear to auscultation and percussion. CARDIAC: Normal S1, S2 with no gallops. No murmurs ABDOMEN: Soft. Bowel sounds normal. No organomegaly. No abdominal bruits. Extremities: reveal no edema. No clubbing or cyanosis Neurologically awake, alert. And oriented 2.. No focal deficits noted Skin: No rash or skin lesions. Psychiatric: Non cooperative Musculoskeletal: No joint swelling or deformity. Normal range of motion. - Labs CBC & Chem 7: 03/08/18 08:12 03/07/18 11:22 Assessment and Plan Assessment: Acute psychosis. Much improved now. Dystonic movements. improved. History of schizophrenia for the past 20 years Mild dehydration Mild rhabdomyolysis with elevated CPK Altered mental status secondary to psychosis Abnormal CT head. MRI was ordered.MRI was done which showed no acute process. MRI did show age-related atrophy and chronic small vessel ischemia. Plan: Patient was started on Ativan when necessary for agitation. Patient was seen by psychiatric. Continue with home medications.. Bedside sitter and follow up closely. Neurology is following as well. Gentle hydration but patient does not want to keep IV line. Continue with PT OT. Anticipate discharge tomorrow with home physical therapy. Further recommendations based on the clinical course. Continue with close monitoring.. Time with Patient: Greater than 30
[2018-03-08 22:55] VITALS: RESP 17; TEMP 98.6
[2018-03-09 06:27] VITALS: BP 130/71; PULSE 70
[2018-03-09] MEDS: LEVOTHYROXINE 75 MCG TAB PO SCH (06:39)
[2018-03-09] MEDS ORDERED: PANTOPRAZOLE 40 MG TABLET PO SCH (07:30)
[2018-03-09] MEDS: LOSARTAN-HCTZ 50-12.5 MG 1 EACH TAB PO SCH (08:12)
[2018-03-09] MEDS: HEPARIN SODIUM,PORCINE 5,000 UNIT/ML 1 ML VIAL SQ SCH (08:12)
[2018-03-09] MEDS: SODIUM CHLORIDE 0.9% 1,000 ML IV SCH (08:13)
[2018-03-09] MEDS: SERTRALINE 100 MG TAB PO SCH (08:13)
[2018-03-09 09:46] LABS: Clozapine (Clozaril) 93 ng/mL (200-700); Norclozapine 64 ng/mL (200-700)
[2018-03-09 11:25] LABS: Basophils % (A) 0 %; Eosinophils % (A) 0 %; HCT 37.3 % (34.0-46.0); HGB 12.3 gm/dL (11.4-16.0); Lymphocytes # (A) 1.3 k/uL (1.0-4.8); Lymphocytes % (A) 17 %; MCH 28.8 pg (25.0-35.0); MCHC 32.9 g/dL (31.0-37.0); MCV 87.4 fL (80.0-100.0); Mean Platelet Volume 7.7; Monocytes # (A) 0.4 k/uL (0-1.0); Monocytes % (A) 4 %; Neutrophils # (A) 6.1 k/uL (1.3-7.7); Neutrophils % (A) 77 %; Platelet Count 242 k/uL (150-450); RBC 4.27 m/uL (3.80-5.40); RDW 13.9 % (11.5-15.5); WBC 7.8 k/uL (3.8-10.6)
[2018-03-09 11:38] LABS: Anion Gap 13 mmol/L; Blood Urea Nitrogen 12 mg/dL (7-17); Calcium 8.8 mg/dL (8.4-10.2); Carbon Dioxide 28 mmol/L (22-30); Chloride 104 mmol/L (98-107); Glucose 108 mg/dL (74-99); Sodium 145 mmol/L (137-145)
--- NOTE | 2018-03-09 23:39 | DS ---
DISCHARGE SUMMARY DISCHARGE SUMMARY ADDENDUM: DATE OF SERVICE: 03/09/2018 This 63-year-old woman who was admitted with abnormal movements, possibly secondary to dystonia, as well as acute psychosis was evaluated closely. Neurology saw the patient. The patient will be discharged in stable condition with guarded prognosis. MRA did not show acute abnormality. Please refer to the previous dictations and the detailed discharge summary dictated by Andry Lorenzo on 03/08/2018 at 1520 hours for details of the diagnosis and discharge medications. On exam, vitals are stable. CARDIOVASCULAR SYSTEM: S1, S2 muffled. ABDOMEN: Soft. NERVOUS SYSTEM: No focal deficit. MMODL / IJN: [id number] /
== END 2018-03-09 12:36 | disposition home health service (06) | DRG 885 ==
LOC: EC 12:56 → 4MS4W 18:06 → OBSVTOIN 03-07 08:36 → 4MS4W 03-08 19:57
PROVIDERS: ADMIT Internal Medicine; ATTEND Internal Medicine
DX: F23 Brief psychotic disorder (principal); M62.82 Rhabdomyolysis; E03.9 Hypothyroidism, unspecified; E86.0 Dehydration; I10 Essential (primary) hypertension; Z79.899 Other long term (current) drug therapy; Z87.891 Personal history of nicotine dependence; Z90.710 Acquired absence of both cervix and uterus; Z88.6 Allergy status to analgesic agent; Z88.0 Allergy status to penicillin; Z79.890 Hormone replacement therapy
CPT/HCPCS: 36415; 70450; 70551; 71046; 80048; 80053; 80159; 80306; 81001; 82075; 82550; 82553; 84443; 84484; 85025; 85027; 85610; 85730; 93005; 96361; 96374; 99285

== ENCOUNTER 2018-03-15 22:03 | Emergency (ER) | payer MEDICARE, OTHER ==
[2018-03-15 22:14] VITALS: RESP 18
--- NOTE | 2018-03-15 22:30 | ED ---
General Adult HPI - General Chief complaint: Recheck/Abnormal Lab/Rx Stated complaint: Confusion Time Seen by Provider: 03/15/18 22:09 Source: EMS Mode of arrival: EMS Limitations: no limitations - History of Present Illness Initial comments: This patient is 63-year-old woman who states that she believes she is having a urinary tract infection. She complains of having burning at her "crotch" that has been going on for a couple of days, worse today. She states it's identical to previous pain she had with urinary tract infection. The symptoms are worse with urination. She has not found any relieving factors. Patient has not noted fever or chills. She is denying abdominal pain. No change in bowel movements, no nausea or vomiting. -: days(s) Location: genitals Radiation: non-radiation Quality: burning Consistency: constant Improves with: none Worsens with: other (Urination) Treatments Prior to Arrival: none - Related Data Home Medications Medication Instructions Recorded Confirmed Levothyroxine Sodium [Synthroid] 75 mcg PO DAILY 03/07/18 03/07/18 Losartan/Hydrochlorothiazide 1 tab PO DAILY 03/07/18 03/07/18 [Losartan-Hctz 50-12.5 mg Tab] Sertraline [Zoloft] 100 mg PO DAILY 03/07/18 03/07/18 cloZAPine [Clozaril] 50 mg PO HS 03/07/18 03/07/18 cloZAPine [Clozaril] 100 mg PO HS 03/07/18 03/07/18 Previous Rx's Medication Instructions Recorded Acetaminophen Tab [Tylenol] 650 mg PO Q6HR PRN tab 03/08/18 Pantoprazole [Protonix] 40 mg PO AC-BRKFST #30 tablet. 03/08/18 Sulfamethox-Tmp 800-160Mg [Bactrim 1 each PO Q12HR #14 tab 03/15/18 Ds] Allergies Allergy/AdvReac Type Severity Reaction Status Date / Time aspirin Allergy Unknown Verified 03/15/18 22:09 Penicillins Allergy Unknown Verified 03/15/18 22:09 Review of Systems ROS Statement: Those systems with pertinent positive or pertinent negative responses have been documented in the HPI. ROS Other: All systems not noted in ROS Statement are negative. Constitutional: Denies: fever, chills Respiratory: Denies: cough, dyspnea Cardiovascular: Denies: chest pain Gastrointestinal: Denies: abdominal pain, vomiting, diarrhea Genitourinary: Reports: dysuria. Denies: frequency, hematuria, discharge Musculoskeletal: Denies: back pain Skin: Denies: rash Neurological: Denies: headache Past Medical History Past Medical History: No Reported History History of Any Multi-Drug Resistant Organisms: None Reported Past Surgical History: Hernia Repair, Hysterectomy Past Psychological History: Schizophrenia Smoking Status: Never smoker Past Alcohol Use History: None Reported Past Drug Use History: None Reported General Exam Limitations: no limitations General appearance: alert, in no apparent distress Head exam: Present: atraumatic, normocephalic Respiratory exam: Present: normal lung sounds bilaterally. Absent: respiratory distress, wheezes, rales, rhonchi, stridor Cardiovascular Exam: Present: regular rate, normal rhythm, normal heart sounds. Absent: systolic murmur, diastolic murmur, rubs, gallop GI/Abdominal exam: Present: soft. 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 Absent: erythema, swelling, lesions, lacerations, ecchymosis Back exam: Present: normal inspection. Absent: CVA tenderness (R), CVA tenderness (L) Skin exam: Present: warm, dry, intact, normal color. Absent: rash Course Vital Signs 03/15/18 22:09 Temperature 98.1 F Pulse Rate 62 Respiratory 18 Rate Blood Pressure 150/63 O2 Sat by Pulse 99 Oximetry Medical Decision Making - Lab Data Lab Results 03/15/18 Range/Units 22:22 Urine Color Yellow Urine Appearance Cloudy H (Clear) Urine pH 5.5 (5.0-8.0) Ur Specific Nelson 1.014 (1.001-1.035) Urine Protein 2+ H (Negative) Urine Glucose (UA) Negative (Negative) Urine Ketones Negative (Negative) Urine Blood Trace H (Negative) Urine Nitrite Positive H (Negative) Urine Bilirubin Negative (Negative) Urine Urobilinogen <2.0 (<2.0) mg/dL Ur Leukocyte Esterase Large H (Negative) Urine RBC 3 (0-5) /hpf Urine WBC >182 H (0-5) /hpf Urine WBC Clumps Many H (None) /hpf Ur Squamous Epith Cells 7 H (0-4) /hpf Urine Bacteria Moderate H (None) /hpf Hyaline Casts 546 H (0-2) /lpf Urine Mucus Many H (None) /hpf Disposition Clinical Impression: Urinary tract infection Disposition: HOME SELF-CARE Condition: Good Instructions: Urinary Tract Infection in Women (ED) Prescriptions: Sulfamethox-Tmp 800-160Mg [Bactrim Ds] 1 each PO Q12HR #14 tab Is patient prescribed a controlled substance at d/c from ED?: No Referrals: Sonia Echeverria MD [Primary Care Provider] - 1-2 days
[2018-03-15 23:03] LABS: Appearance,Urine Cloudy (Clear); Bacteria,Urine Moderate /hpf; Bilirubin,Urine Negative (Negative); Blood,Urine Trace (Negative); Color,Urine Yellow; Glucose,Urine (UA) Negative (Negative); Hyaline Casts,Urine 546 /lpf (0-2); Ketones,Urine Negative (Negative); Leukocyte Esterase,Urine Large (Negative); Mucus,Urine Many /hpf; Nitrite,Urine Positive (Negative); PH, Urine 5.5 (5.0-8.0); Protein,Urine 2+ (Negative); RBC,Urine 3 /hpf (0-5); Specific Gravity,Urine 1.014 (1.001-1.035); Squamous Epithelial Cell,Urine 7 /hpf (0-4); Urobilinogen,Urine <2.0 mg/dL (<2.0); WBC,Urine >182 /hpf (0-5)
[2018-03-15] MEDS ORDERED: SULFAMETHOX-TMP 800-160MG 1 EACH TAB PO STA (23:40)
[2018-03-15 23:54] VITALS: BP 147/83; PULSE 75; TEMP 97.8
== END 2018-03-16 00:30 | disposition home or self-care (01) ==
LOC: EC 22:03
DX: N39.0 Urinary tract infection, site not specified (principal); F20.9 Schizophrenia, unspecified; Z79.899 Other long term (current) drug therapy; Z88.0 Allergy status to penicillin; Z88.6 Allergy status to analgesic agent
CPT/HCPCS: 81001; 87086; 99285

== ENCOUNTER → 2018-07-21 | Outpatient (CLI) | payer MEDICARE, OTHER ==
[2018-07-21 11:57] VITALS: BP 143/70; PULSE 69; TEMP 96.4; BMI 35.6
--- NOTE | 2018-07-21 13:05 | P.HPOB ---
History of Present Illness H&P Date: 07/21/18 Chief Complaint: The patient is here for her routine gynecologic exam. This is a 63-year-old G0 with an LMP of 2007. The patient underwent a NIC BSO in 2010 following postmenopausal bleeding and for possible "precancerous cells" per the patient. The patient denies any postoperative adjuvant treatment. She is not sure if the pathology showed any cancerous changes. She is without gynecologic complaints. Her last pelvic exam was in 2010. She states she has has not been doing mammograms since then as well. She previously saw Dr. Maradiaga for her gynecologic exams. Review of Systems The patient sees her weight has been stable. She denies respiratory, cardiac, or G.I. problems. Past Medical History Past Medical History: CVA/TIA (TIA), GERD/Reflux (With esophagitis), Hypertension, Osteoarthritis (OA), Rheumatoid Arthritis (RA), Thyroid Disorder ( Hypothyroid) Additional Past Medical History / Comment(s): Schizophrenia. 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 History of Any Multi-Drug Resistant Organisms: None Reported Past Surgical History: Hernia Repair (Abdominal hernia repair x2), Hysterectomy (NIC BSO 2010), Tonsillectomy Past Psychological History: Schizophrenia (Since a teenager) Smoking Status: Former smoker (Quit 1997) Past Alcohol Use History: None Reported Past Drug Use History: None Reported Additional History: She is single and is not sexually active at this time. 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 She currently does not work outside the home. - Past Family History Mother Family Medical History: Cancer (Breast cancer) Additional Family Medical History / Comment(s): Osteoporosis Sister(s) Family Medical History: Cancer (2 of 4 sisters with breast) Father Family Medical History: Myocardial Infarction ([place]) Additional Family Medical History / Comment(s): Paternal aunt and cousin had schizophrenia Medications and Allergies Home Medications Medication Instructions Recorded Confirmed Type Levothyroxine Sodium [Synthroid] 75 mcg PO DAILY 03/07/18 07/21/18 History Losartan/Hydrochlorothiazide 1 tab PO DAILY 03/07/18 07/21/18 History [Losartan-Hctz 50-12.5 mg Tab] Sertraline [Zoloft] 100 mg PO DAILY 03/07/18 07/21/18 History Aspirin [Adult Low Dose Aspirin EC] 81 mg PO DAILY 07/21/18 07/21/18 History Furosemide [Lasix] 20 mg PO PRN 07/21/18 History Loratadine [Claritin] 4 mg PO DAILY 07/21/18 07/21/18 History Omeprazole 20 mg PO QAM 07/21/18 07/21/18 History Vitamin E (Dl,Tocopheryl Acet) 400 unit PO DAILY 07/21/18 07/21/18 History [Vitamin E] cloZAPine [Clozapine Odt] PO HS 07/21/18 History Allergies Allergy/AdvReac Type Severity Reaction Status Date / Time aspirin Allergy Unknown Verified 03/15/18 22:09 Penicillins Allergy Unknown Verified 07/21/18 11:53 Exam Vital Signs Temp Pulse BP 07/21/18 11:54 96.4 F L 69 143/70 Intake and Output 07/20/18 07/21/18 07/21/18 22:59 06:59 14:59 Other: Weight 100.244 kg Height 5'6", BMI 35.7. This is a well-developed well-nourished heavyset white female who is alert and oriented times 3 in no acute distress. HEENT: Within normal limits. NECK: Supple without mass or thyromegaly. CHEST AND LUNGS: Clear to auscultation. HEART: Regular rate and rhythm. BREASTS: Are without mass or discharge. AXILLARY EXAM: Negative for adenopathy. BACK: Negative for CVA tenderness. ABDOMEN: Soft, obese, nontender, without palpable masses. PELVIC EXAM: External genitalia appears normal with mild atrophy. Vagina appears normal mild atrophy. There is no evidence of prolapse. Bimanual examination is negative for mass or tenderness. RECTAL EXAM: Rectovaginal exam is negative for mass or tenderness and is negative for occult blood. EXTREMITIES: Nontender. IMPRESSION: 1. 63-year-old menopausal female status post NIC BSO in 2010 following postmenopausal bleeding. There is some question of the indication for the surgery and the pathology findings. 2. Incomplete database 3. Normal gynecologic exam. PLAN: 1. Pap smear of the vaginal cuff was performed today. This was done because of the possibility of the hysterectomy being done for cancer or cancerous findings on the pathology report. 2. Records will be obtained from the hysterectomy including the operative report and the pathology report. If the Pap smear is benign and the pathology is also benign, we will consider discontinuing Pap smears. I have recommended that she come yearly for her annual preventative gynecologic exam. 3. Self breast awareness was discussed with the patient. 4. Screening mammogram was recommended. The order slip was given to the patient for this. The patient declined having this done today. I've also recommend yearly mammograms. I stressed the importance of this especially with her family history of breast cancer. 5. Osteoporosis prevention was discussed. I have recommended bone density screenings since she has never had this done. The order slip was given to the patient for this. She may try to have this done on the same day as her screening mammogram. 6. I have recommended screening colonoscopy since she states she has not had this done in the past. She will follow-up with Dr. Crawford for her ongoing medical care and to arrange for a screening colonoscopy.
== END ==
LOC: WWCWWP 09:33
PROVIDERS: ATTEND Obstetrics & Gynecology
DX: Z53.9 Procedure and treatment not carried out, unspecified reason (principal)

== ENCOUNTER → 2018-08-26 | Outpatient (CLI) | payer MEDICARE, OTHER ==
--- NOTE | 2018-08-27 14:28 | BD ---
EXAMINATION TYPE: Axial Bone Density DATE OF EXAM: 08/26/2018 COMPARISON: NONE CLINICAL HISTORY: Height: 5 FT 6 IN Weight: 225 FRAX RISK QUESTIONS: RISK FACTORS HISTORY OF: Family History of Osteoporosis: YES Active: YES Postmenopausal woman: AGE 49 MEDICATIONS: Thyroid Medications: YES Which medication: LEVOTHYROXINE How Long: SEV YEARS Additional Medications: CLOZAPINE,SERTRALINE, LOSARTIN, LEVOTHYROXINE, FURASEMIDE, CHLOR-ALLERGY, OME PRAZOLE, ASPIRIN, VIT E Additional History: EXAM MEASUREMENTS: Bone mineral densitometry was performed using the [employer] System. Bone mineral density as measured about the Lumbar spine is: ----- L1-L4(G/cm2): 1.245 T Score Values are as follows: ----- L2: -0.2 ----- L3: 0.3 ----- L4: 0.9 ----- L1-L4: 0.5 BASELINE Bone mineral density about the R hip (g/cm2): 0.790 Bone mineral density about the L hip (g/cm2): 0.783 T Score values are as follows: -----R Neck: -1.8 -----L Neck: -1.8 -----R Total: -1.3 -----L Total: -1.0 BASELINE IMPRESSION: Osteopenia (T Score between -2.5 and -1). There is slightly increased risk of fracture and the patient may be considered for treatment. Re-Screen 2-5 years. NOTE: T-SCORE=SD OF THE YOUNG ADULT MEAN.
--- NOTE | 2018-08-30 10:47 | MM ---
Reason for exam: screening (asymptomatic). Last mammogram was performed 8 years and 6 months ago. History: Patient is postmenopausal and is nulliparous. Family history of breast cancer in sister and breast cancer in mother. Physical Findings: A clinical breast exam by your physician is recommended on an annual basis and results should be correlated with mammographic findings. MG 3D Screening Mammo W/Cad Bilateral CC and MLO view(s) were taken. Prior study comparison: February 20, 2010, bilateral digital screening mammogram. February 14, 2009, bilateral digital screening mammogram. The breast tissue is heterogeneously dense. This may lower the sensitivity of mammography. No significant changes when compared with prior studies. ASSESSMENT: Benign, BI-RAD 2 RECOMMENDATION: Routine screening mammogram of both breasts in 1 year.
== END | disposition home or self-care (01) ==
LOC: RADMAMWWP 14:44
PROVIDERS: ATTEND Obstetrics & Gynecology
DX: Z12.31 Encounter for screening mammogram for malignant neoplasm of breast (principal); M85.80 Other specified disorders of bone density and structure, unspecified site; Z78.0 Asymptomatic menopausal state
CPT/HCPCS: 77063; 77067; 77080

== ENCOUNTER 2019-04-07 16:33 | Inpatient (IN) | payer MEDICARE, OTHER ==
--- NOTE | 2019-04-07 17:58 | ED ---
Psych HPI - General Chief Complaint: Psychiatric Symptoms Stated Complaint: Mental Health Time Seen by Provider: 04/07/19 16:47 Source: EMS, RN notes reviewed, old records reviewed Mode of arrival: EMS - History of Present Illness Initial Comments: This is a 64-year-old female presenting with altered mental status not acting appropriately. Recent diagnosis of urinary tract infection history of schizophrenia. Patient not taking medications as prescribed. Patient is difficult to answer questions acutely psychotic patient does live by herself, family concerned the patient is unsafe to alone MD Complaint: altered mental status -: days(s) Associated Psychiatric Symptoms: suicidal ideation History of same: Yes Quality: constant Improves With: none Worsens With: none Associated Symptoms: denies other symptoms Treatments Prior to Arrival: placed on mental health hold If Self Harm: admits thoughts of self harm - Related Data Home Medications Medication Instructions Recorded Confirmed Levothyroxine Sodium [Synthroid] 37.5 mcg PO DAILY 03/07/18 04/07/19 Losartan/Hydrochlorothiazide 1 tab PO DAILY 03/07/18 04/07/19 [Losartan-Hctz 50-12.5 mg Tab] Sertraline [Zoloft] 100 mg PO DAILY 03/07/18 04/07/19 Aspirin [Adult Low Dose Aspirin EC] 81 mg PO DAILY 07/21/18 04/07/19 Furosemide [Lasix] 20 mg PO DAILY PRN 07/21/18 04/07/19 Omeprazole 20 mg PO DAILY 07/21/18 04/07/19 Chlorpheniramine Maleate 4 mg PO Q4H PRN 04/07/19 04/07/19 [Chlor-Trimeton] Cholecalciferol [Vitamin D3 (25 1,000 unit PO DAILY 04/07/19 04/07/19 Mcg = 1000 Iu)] Vitamin E(Unknown) 1 tab PO MOTUWETHFR 04/07/19 04/07/19 cloZAPine [Clozaril] 50 mg PO HS 04/07/19 04/07/19 cloZAPine [Clozaril] 100 mg PO DAILY 04/07/19 04/07/19 Allergies Allergy/AdvReac Type Severity Reaction Status Date / Time aspirin Allergy Unknown Verified 04/07/19 16:55 Penicillins Allergy Unknown Verified 04/07/19 16:55 Review of Systems ROS Statement: Those systems with pertinent positive or pertinent negative responses have been documented in the HPI. ROS Other: All systems not noted in ROS Statement are negative. 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 History of Any Multi-Drug Resistant Organisms: None Reported Past Surgical History: Hernia Repair, Hysterectomy, Tonsillectomy Past Psychological History: Schizophrenia Smoking Status: Former smoker Past Alcohol Use History: None Reported Past Drug Use History: None Reported - Past Family History Mother Family Medical History: Cancer (Breast cancer) Additional Family Medical History / Comment(s): Osteoporosis Sister(s) Family Medical History: Cancer (2 of 4 sisters with breast) Additional Family Medical History / Comment(s): 2 of 4 with breast Father Family Medical History: Myocardial Infarction ([place]) Additional Family Medical History / Comment(s): Paternal aunt and cousin had schizophrenia General Exam Limitations: altered mental status General appearance: alert, in no apparent distress Head exam: Present: atraumatic, normocephalic, normal inspection Eye exam: Present: normal appearance, PERRL, EOMI. Absent: scleral icterus, conjunctival injection, periorbital swelling ENT exam: Present: normal exam, mucous membranes moist Neck exam: Present: normal inspection. Absent: tenderness, meningismus, lymphadenopathy Respiratory exam: Present: normal lung sounds bilaterally. Absent: respiratory distress, wheezes, rales, rhonchi, stridor Cardiovascular Exam: Present: regular rate, normal rhythm, normal heart sounds. Absent: systolic murmur, diastolic murmur, rubs, gallop, clicks GI/Abdominal exam: Present: soft, normal bowel sounds. Absent: distended, tenderness, guarding, rebound, rigid Extremities exam: Present: normal inspection, full ROM, normal capillary refill. Absent: tenderness, pedal edema, joint swelling, calf tenderness Back exam: Present: normal inspection Neurological exam: Present: alert, oriented X3, CN II-XII intact Psychiatric exam: Present: normal affect, normal mood Skin exam: Present: warm, dry, intact, normal color. Absent: rash Course Vital Signs 04/07/19 04/07/19 04/07/19 16:56 18:52 19:13 Temperature 99.9 F H 98.5 F Pulse Rate 96 86 Respiratory 18 18 Rate Blood Pressure 175/103 136/74 O2 Sat by Pulse 96 96 Oximetry - Reevaluation(s) Reevaluation #1: 04/07/19 17:58 Medical record is reviewed and patient's medically clear for psychiatric evaluation Reevaluation #2: 04/07/19 20:41 Spoke with family at length, unsure if patient is safe to live at home, patient lives at home and not acting appropriately not saying appropriate, delusional Medical Decision Making - Medical Decision Making 64 female the ER for evaluation of altered mental status acute psychosis increased schizophrenia. Patient also has underlying urinary tract infection will admit for IV antibiotics hydration and psychiatric consult - Lab Data Result diagrams: 04/07/19 18:38 04/07/19 18:38 Lab Results 04/07/19 04/07/19 04/07/19 Range/Units 18:38 18:38 19:01 WBC 12.0 H (3.8-10.6) k/uL RBC 4.30 (3.80-5.40) m/uL Hgb 12.0 (11.4-16.0) gm/dL Hct 36.8 (34.0-46.0) % MCV 85.7 (80.0-100.0) fL MCH 28.0 (25.0-35.0) pg MCHC 32.7 (31.0-37.0) g/dL RDW 14.4 (11.5-15.5) % Plt Count 275 (150-450) k/uL Neutrophils % 80 % Lymphocytes % 13 % Monocytes % 6 % Eosinophils % 0 % Basophils % 0 % Neutrophils # 9.6 H (1.3-7.7) k/uL Lymphocytes # 1.5 (1.0-4.8) k/uL Monocytes # 0.8 (0-1.0) k/uL Eosinophils # 0.1 (0-0.7) k/uL Basophils # 0.0 (0-0.2) k/uL Sodium 143 (137-145) mmol/L Potassium 4.4 (3.5-5.1) mmol/L Chloride 108 H (98-107) mmol/L Carbon Dioxide 23 (22-30) mmol/L Anion Gap 12 mmol/L BUN 23 H (7-17) mg/dL Creatinine 1.12 H (0.52-1.04) mg/dL Est GFR (CKD-EPI)AfAm 60 (>60 ml/min/1.73 sqM) Est GFR (CKD-EPI)NonAf 52 (>60 ml/min/1.73 sqM) Glucose 130 H (74-99) mg/dL Calcium 9.4 (8.4-10.2) mg/dL Urine Color Yellow Urine Appearance Turbid H (Clear) Urine pH 5.5 (5.0-8.0) Ur Specific [place] 1.030 (1.001-1.035) Urine Protein 1+ H (Negative) Urine Glucose (UA) Negative (Negative) Urine Ketones 1+ H (Negative) Urine Blood Negative (Negative) Urine Nitrite Negative (Negative) Urine Bilirubin Negative (Negative) Urine Urobilinogen 2.0 (<2.0) mg/dL Ur Leukocyte Esterase Trace H (Negative) Urine RBC 1 (0-5) /hpf Urine WBC 8 H (0-5) /hpf Ur Squamous Epith Cells 4 (0-4) /hpf Urine Bacteria Rare H (None) /hpf Hyaline Casts 105 H (0-2) /lpf Urine Mucus Many H (None) /hpf Salicylates <1.0 mg/dL Urine Opiates Screen Not Detected (NotDetected) Ur Oxycodone Screen Not Detected (NotDetected) Urine Methadone Screen Not Detected (NotDetected) Ur Propoxyphene Screen Not Detected (NotDetected) Acetaminophen <10.0 ug/mL Ur Barbiturates Screen Not Detected (NotDetected) U Tricyclic Antidepress Not Detected (NotDetected) Ur Phencyclidine Scrn Not Detected (NotDetected) Ur Amphetamines Screen Not Detected (NotDetected) U Methamphetamines Scrn Not Detected (NotDetected) U Benzodiazepines Scrn Not Detected (NotDetected) Urine Cocaine Screen Not Detected (NotDetected) U Marijuana (THC) Screen Not Detected (NotDetected) Serum Alcohol <10 mg/dL Disposition Clinical Impression: Altered mental state, Dehydration, UTI (urinary tract infection) Disposition: ADMITTED IP TO THIS HOSP Condition: Fair Is patient prescribed a controlled substance at d/c from ED?: No Referrals: Sonia Echeverria MD [Primary Care Provider] - 1-2 days
[2019-04-07 18:52] LABS: Basophils % (A) 0 %; Eosinophils # (A) 0.1 k/uL (0-0.7); Eosinophils % (A) 0 %; HCT 36.8 % (34.0-46.0); Lymphocytes # (A) 1.5 k/uL (1.0-4.8); Lymphocytes % (A) 13 %; MCHC 32.7 g/dL (31.0-37.0); MCV 85.7 fL (80.0-100.0); Mean Platelet Volume 8.3; Monocytes # (A) 0.8 k/uL (0-1.0); Monocytes % (A) 6 %; Neutrophils # (A) 9.6 k/uL (1.3-7.7); Neutrophils % (A) 80 %; Platelet Count 275 k/uL (150-450); RDW 14.4 % (11.5-15.5)
[2019-04-07 19:01] LABS: Acetaminophen <10.0 ug/mL; African American GFR (CKD) 60 (>60 ml/min/1.73 sqM); Alcohol <10 mg/dL; Anion Gap 12 mmol/L; Blood Urea Nitrogen 23 mg/dL (7-17); Calcium 9.4 mg/dL (8.4-10.2); Carbon Dioxide 23 mmol/L (22-30); Chloride 108 mmol/L (98-107); Glucose 130 mg/dL (74-99); Potassium 4.4 mmol/L (3.5-5.1); Salicylate <1.0 mg/dL; Sodium 143 mmol/L (137-145)
[2019-04-07 19:16] LABS: Appearance,Urine Turbid (Clear); Bacteria,Urine Rare /hpf; Bilirubin,Urine Negative (Negative); Blood,Urine Negative (Negative); Color,Urine Yellow; Glucose,Urine (UA) Negative (Negative); Hyaline Casts,Urine 105 /lpf (0-2); Ketones,Urine 1+ (Negative); Leukocyte Esterase,Urine Trace (Negative); Mucus,Urine Many /hpf; Nitrite,Urine Negative (Negative); PH, Urine 5.5 (5.0-8.0); Protein,Urine 1+ (Negative); RBC,Urine 1 /hpf (0-5); Squamous Epithelial Cell,Urine 4 /hpf (0-4); WBC,Urine 8 /hpf (0-5)
[2019-04-07 19:24] LABS: Amphetamine Screen,Urine Not Detected (NotDetected); Barbiturate Screen,Urine Not Detected (NotDetected); Benzodiazepines Screen,Urine Not Detected (NotDetected); Cocaine Screen,Urine Not Detected (NotDetected); Methadone Screen, Urine Not Detected (NotDetected); Opiate Screen,Urine Not Detected (NotDetected); Oxycodone Screen, Urine Not Detected (NotDetected); Phencyclidine Screen,Urine Not Detected (NotDetected); Tricyclic Antidepressant,Urine Not Detected (NotDetected); Urn Cannabinoid Scrn Not Detected (NotDetected)
[2019-04-07] MEDS ORDERED: SODIUM CHLORIDE 0.9% 1,000 ML IV ONE (20:42)
[2019-04-07] MEDS ORDERED: diphenhydrAMINE 25 MG CAP PO PRN (22:38)
[2019-04-07] MEDS ORDERED: FUROSEMIDE 20 MG TAB PO PRN (22:38)
[2019-04-08] MEDS ORDERED: HALOPERIDOL LACTATE 5 MG/ML 1 ML VIAL IM PRN (05:34)
[2019-04-08] MEDS: LORazepam 2 MG/ML INJ IM PRN (05:52)
[2019-04-08] MEDS: FAMOTIDINE 20 MG/2 ML VIAL IV SCH ×2 (08:08→20:28)
[2019-04-08] MEDS: cloZAPine 100 MG TAB PO SCH (08:09)
[2019-04-08] MEDS: LOSARTAN-HCTZ 50-12.5 MG 1 EACH TAB PO SCH (08:09)
[2019-04-08] MEDS: LEVOTHYROXINE 75 MCG TAB PO SCH (08:10)
[2019-04-08] MEDS: SERTRALINE 100 MG TAB PO SCH (08:10)
[2019-04-08] MEDS: CHOLECALCIFEROL 1,000 UNIT TAB PO SCH (08:10)
[2019-04-08 08:48] LABS: Basophils % (A) 0 %; Eosinophils # (A) 0.1 k/uL (0-0.7); Eosinophils % (A) 1 %; HCT 34.9 % (34.0-46.0); HGB 11.5 gm/dL (11.4-16.0); Lymphocytes # (A) 1.7 k/uL (1.0-4.8); Lymphocytes % (A) 22 %; MCH 28.9 pg (25.0-35.0); MCV 87.4 fL (80.0-100.0); Monocytes # (A) 0.6 k/uL (0-1.0); Monocytes % (A) 7 %; Neutrophils # (A) 5.5 k/uL (1.3-7.7); Neutrophils % (A) 69 %; Platelet Count 239 k/uL (150-450); RBC 3.99 m/uL (3.80-5.40); RDW 14.3 % (11.5-15.5)
[2019-04-08] MEDS ORDERED: HEPARIN SODIUM,PORCINE 5,000 UNIT/ML 1 ML VIAL SQ SCH (09:00)
[2019-04-08] MEDS ORDERED: NON-FORMULARY DRUG (Aspirin [Adult Low Dose Aspirin Ec] 81 MG) PO SCH (09:00)
[2019-04-08 09:06] LABS: African American GFR (CKD) >90 (>60 ml/min/1.73 sqM); Anion Gap 7 mmol/L; Blood Urea Nitrogen 16 mg/dL (7-17); Calcium 8.9 mg/dL (8.4-10.2); Carbon Dioxide 28 mmol/L (22-30); Chloride 108 mmol/L (98-107); Glucose 105 mg/dL (74-99); Potassium 4.1 mmol/L (3.5-5.1); Sodium 143 mmol/L (137-145)
--- NOTE | 2019-04-08 14:22 | P.CN ---
Psychiatric Consult - . Consult date: 04/08/19 Consult:: 04/08/19 14:11 Identification: Patient is a 64-year-old female who is brought in to the emergency room with altered mental status. Reason for Consult: Altered mental status History of Present Illness: Patient's chart was reviewed the patient was seen and interviewed in her room no family members were present. Patient states that she came to the emergency room because she was feeling really awful. Patient was discovered to have a urinary tract infection and apparently the patient had not been taking the antibiotics that had been prescribed a week or so ago for this reason. Patient has a history of schizophrenia and has been treated at [facility] and is currently on Clozaril 100 mg in the morning and 50 mg at bedtime and Zoloft 100 mg daily the patient states that she uses med boxes for her medications. Patient states that she is not currently feeling paranoid, no auditory or visual hallucinations and states that she has no current suicidal ideation. She states that she is seen at [facility] every several months, her medications have not been adjusted recently per the patient. Patient reported that she has no history of suicide attempts and has not recently been admitted or psychiatric care, she states her last inpatient admission was a number of years ago. Patient states that she is feeling better now than she did when she was admitted. Patient cannot tell me much about why she didn't take her medicines for the last several weeks denied that she was feeling confused but just described that she felt "really awful". Patient had been seen a year ago for similar presentation of altered mental status in the face of a urinary tract infection. Patient has had a history of schizophrenia for a number of years and has not been admitted for inpatient care for a number of years. Past Psychiatric History: patient states that she hasn't been admitted for a number of years and had many years ago been admitted to [facility]. Patient is currently on Clozaril 100 mg in the morning and 50 at bedtime as well as Zoloft 100 mg daily she is not aware of her prior medications. She is being followed at [facility]. Past Medical/Surgical History: patient has a history of CVA/TIA, GERD, hypertension, osteoarthritis, rheumatoid arthritis hypothyroidism and is status post hysterectomy and a hernia repair Social History: patient states that her parents are both and she has 2 brothers and 4 sisters all of whom are retired. Patient states that she is never and has no children. 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 She states that she cooks for herself. Substance Use History: patient denies any alcohol or drug abuse history Mental status: Appearance/Attitude: Patient is dressed in a hospital gown, lying in a hospital bed she kept her eyes closed throughout the interview but was cooperative Behavior: Patient did not exhibit any psychomotor agitation or retardation Speech/Language: Patient's speech was spontaneous of normal volume and she was coherent Thought Process: Patient was goal-directed in her responses there was no evidence of loose association or flight of ideas Thought Content: Patient denied auditory or visual hallucinations and no delusions or paranoid ideation were elicited. Patient states that she felt really awful when she came to the hospital and states that she is no longer feeling that way. Patient states that she has been eating and didn't sleep much last evening. Suicidal/Homicidal Ideation: Patient denied any current suicidal or homicidal ideation Sensorium/Cognition: Patient is alert, she was oriented to person, place and date Mood/Affect: Patient's mood was restricted and her affect is flat Insight/Judgment: Patient's insight and judgment are fair Assessment: patient was brought to the hospital due to altered mental status and apparently been diagnosed with a urinary tract infection several weeks ago and had not been compliant with the antibiotics. Patient has been started on antibiotics and is no longer confused, agitated and has been compliant with treatment and medication. Patient has a long history of psychiatric care with a diagnosis of schizophrenia but no admissions for inpatient care for a long period of time. Patient is being seen at [facility] and has been stabilized on Clozaril and Zoloft. Patient is not expressing any psychotic symptoms, is oriented and is no longer combative or confused. Patient had a similar admission in February 2018 with a UTI and a presentation of altered mental status, once her UTI was treated her altered mental status resolved. Diagnosis: delirium now resolving; schizophrenia Plan: patient's delirium is resolving and is most likely secondary to her urinary tract infection and her not taking her antibiotics as an outpatient. Patient does not require inpatient psychiatric care as she is not a danger to herself or others, is not exhibiting any psychotic symptoms and has been compliant with her medication in hospital. Would continue the patient on her current Clozaril and Zoloft at the current doses. Please fax a copy of her most recent CBC to [facility] so that the patient does not have to have a blood draw to fill her next Clozaril prescription. I spoke with social work and nursing staff regarding this and social work will confirm when the patient's next appointment is at [facility]. I will sign off the case, please don't hesitate to contact me if there are any questions or concerns.
--- NOTE | 2019-04-08 15:09 | P.HPIM ---
History of Present Illness H&P Date: 04/08/19 Chief Complaint: Altered mental status Patient is 64-year-old female with a known history of schizophrenia for the past 20 years, hypertension, hypothyroidism, GERD, history of CVA/TIA was brought to the hospital by her family due to altered mental status and not acting appr opriately. Patient was recently diagnosed with urinary tract infection and she has not been taking antibiotics at home. Family was concerned about her safety at home as she lives by herself. Patient was having temperature at 99.9 on admission. She was tachycardic. Currently patient was started on antibiotics ceftriaxone and urine cultures were sent. Otherwise patient denied any complaints of chest pain or shortness of breath. No cough is from production. No abdominal pain. No headache or dizziness lightheadedness. Recent urine culture in February 2019 showed no growth. UA showed turbid, trace leukoesterase and greater than 8 WBCs. Patient was started on ceftriaxone currently. WBC 12.0, BNP 23 and creatinine 1.12 Review of Systems Constitutional: Patient denies any fever or chills . No generalized weakness or weight loss. Abdomen: Patient denied nausea vomiting and diarrhea and abdominal pain. Cardiovascular: Patient denies any chest pain or short of breath no palpitations. Respiratory: patient denied any cough is from production. No shortness of breath Neurologic: Patient denied any numbness or tingling headache. Musculoskeletal: Patient denies any complaints of joint swelling or deformity. Complete review of systems could not be obtained from the patient. 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 History of Any Multi-Drug Resistant Organisms: None Reported Past Surgical History: Hernia Repair, Hysterectomy, Tonsillectomy Past Psychological History: Schizophrenia Smoking Status: Former smoker Past Alcohol Use History: None Reported Past Drug Use History: None Reported - Past Family History Mother Family Medical History: Cancer Additional Family Medical History / Comment(s): Osteoporosis Sister(s) Family Medical History: Cancer Additional Family Medical History / Comment(s): 2 of 4 with breast Father Family Medical History: Myocardial Infarction ([place]) Additional Family Medical History / Comment(s): Paternal aunt and cousin had schizophrenia Medications and Allergies Home Medications Medication Instructions Recorded Confirmed Type Levothyroxine Sodium [Synthroid] 37.5 mcg PO DAILY 03/07/18 04/07/19 History Losartan/Hydrochlorothiazide 1 tab PO DAILY 03/07/18 04/07/19 History [Losartan-Hctz 50-12.5 mg Tab] Sertraline [Zoloft] 100 mg PO DAILY 03/07/18 04/07/19 History Aspirin [Adult Low Dose Aspirin EC] 81 mg PO DAILY 07/21/18 04/07/19 History Furosemide [Lasix] 20 mg PO DAILY PRN 07/21/18 04/07/19 History Omeprazole 20 mg PO DAILY 07/21/18 04/07/19 History Chlorpheniramine Maleate 4 mg PO Q4H PRN 04/07/19 04/07/19 History [Chlor-Trimeton] Cholecalciferol [Vitamin D3 (25 1,000 unit PO DAILY 04/07/19 04/07/19 History Mcg = 1000 Iu)] Vitamin E(Unknown) 1 tab PO MOTUWETHFR 04/07/19 04/07/19 History cloZAPine [Clozaril] 50 mg PO HS 04/07/19 04/07/19 History cloZAPine [Clozaril] 100 mg PO DAILY 04/07/19 04/07/19 History Allergies Allergy/AdvReac Type Severity Reaction Status Date / Time aspirin Allergy Unknown Verified 04/07/19 16:55 Penicillins Allergy Unknown Verified 04/07/19 16:55 Physical Exam Vitals: Vital Signs Temp Pulse Pulse Resp BP BP Pulse Ox 04/08/19 06:41 97.3 F L 74 18 154/56 96 04/07/19 23:00 98.2 F 59 L 18 131/82 94 L 04/07/19 21:00 76 18 119/76 97 04/07/19 19:13 98.5 F 04/07/19 18:52 86 18 136/74 96 04/07/19 16:56 99.9 F H 96 18 175/103 96 Intake and Output 04/07/19 04/08/19 04/08/19 22:59 06:59 14:59 Intake Total 480 Balance 480 Intake: Oral 480 Other: # Voids 1 Weight 108.862 kg PHYSICAL EXAMINATION: Patient is lying in the bed comfortably, no acute distress, awake alert and oriented.. HEENT: Normocephalic. Neck is supple. Pupils reactive. Nostrils clear. Oral cavity is moist. Ears reveal no drainage. Neck reveals no JVD, carotid bruits, or thyromegaly. CHEST EXAMINATION: Trachea is central. Symmetrical expansion. Lung toth clear to auscultation and percussion. CARDIAC: Normal S1, S2 with no gallops. No murmurs ABDOMEN: Soft. Bowel sounds normal. No organomegaly. No abdominal bruits. Extremities: reveal no edema. No clubbing or cyanosis Neurologically awake, alert, oriented x3 with well-coordinated movements. No focal deficits noted Skin: No rash or skin lesions. Psychiatric: Coperative. Denied any suicidal ideation Musculoskeletal: No joint swelling or deformity. Normal range of motion. Results CBC & Chem 7: 04/08/19 08:22 04/08/19 08:22 Labs: Abnormal Lab Results - Last 24 Hours (Table) 04/07/19 04/07/19 04/07/19 Range/Units 18:38 18:38 19:01 WBC 12.0 H (3.8-10.6) k/uL Neutrophils # 9.6 H (1.3-7.7) k/uL Chloride 108 H (98-107) mmol/L BUN 23 H (7-17) mg/dL Creatinine 1.12 H (0.52-1.04) mg/dL Glucose 130 H (74-99) mg/dL Urine Appearance Turbid H (Clear) Urine Protein 1+ H (Negative) Urine Ketones 1+ H (Negative) Ur Leukocyte Esterase Trace H (Negative) Urine WBC 8 H (0-5) /hpf Urine Bacteria Rare H (None) /hpf Hyaline Casts 105 H (0-2) /lpf Urine Mucus Many H (None) /hpf 04/08/19 Range/Units 08:22 WBC (3.8-10.6) k/uL Neutrophils # (1.3-7.7) k/uL Chloride 108 H (98-107) mmol/L BUN (7-17) mg/dL Creatinine (0.52-1.04) mg/dL Glucose 105 H (74-99) mg/dL Urine Appearance (Clear) Urine Protein (Negative) Urine Ketones (Negative) Ur Leukocyte Esterase (Negative) Urine WBC (0-5) /hpf Urine Bacteria (None) /hpf Hyaline Casts (0-2) /lpf Urine Mucus (None) /hpf Thrombosis Risk Factor Assmnt - DVT/VTE Prophylaxis DVT/VTE Prophylaxis: Pharmacologic Prophylaxis ordered - Choose All That Apply Any of the Below Risk Factors Present?: Yes Each Factor Represents 1 point: Obesity (BMI >25) Other Risk Factors: Yes Each Risk Factor Represents 2 Points: Age 61-74 years Thrombosis Risk Factor Assessment Total Risk Factor Score: 3 Thrombosis Risk Factor Assessment Level: Moderate Risk Assessment and Plan Assessment: Altered mental status due to acute delirium due to infection. Unlikely encephalopathy. Improved now. Acute urinary tract infection. Failed outpatient therapy due to noncompliance Possible Sepsis secondary to above Acute kidney injury most likely prerenal. Improved Schizophrenia. Past 20 years Hypertension controlled Osteoarthritis and rheumatoid arthritis GERD History of CVA/TIA Previous history of smoking Hypothyroidism Morbid obesity BMI 37.6 GI and DVT prophylaxis with Zantac and heparin subcu Plan: Patient will be continued on antibiotics in the form of ceftriaxone. Follow-up with urine culture reports. Patient was given fluid bolus in the ER. Patient is otherwise tolerating oral diet. Continue with psychiatric medications in the form of clozapine and Zoloft. Psychiatric motion no inpatient psychiatric admission at this time. Outpatient mental health clinic follow-up. Continue with sitter and monitor closely. Further recommendations based on the clinical course. Prognosis is guarded. Time with Patient: Greater than 30
[2019-04-08] MEDS: HEPARIN SODIUM,PORCINE 5,000 UNIT/ML 1 ML VIAL SQ SCH ×2 (15:23→23:38)
[2019-04-08] MEDS: cloZAPine 25 MG TAB PO SCH (20:28)
[2019-04-09] MEDS: SERTRALINE 100 MG TAB PO SCH (07:36)
[2019-04-09] MEDS: cloZAPine 100 MG TAB PO SCH (07:36)
[2019-04-09] MEDS: LOSARTAN-HCTZ 50-12.5 MG 1 EACH TAB PO SCH (07:36)
[2019-04-09] MEDS: HEPARIN SODIUM,PORCINE 5,000 UNIT/ML 1 ML VIAL SQ SCH ×3 (07:36→23:28)
[2019-04-09] MEDS: CHOLECALCIFEROL 1,000 UNIT TAB PO SCH (07:37)
[2019-04-09] MEDS: FAMOTIDINE 20 MG/2 ML VIAL IV SCH (07:37)
[2019-04-09] MEDS: LEVOTHYROXINE 75 MCG TAB PO SCH (07:37)
[2019-04-09] MEDS: PANTOPRAZOLE 40 MG TABLET PO SCH (15:18)
--- NOTE | 2019-04-09 15:42 | PN ---
PROGRESS NOTE DATE OF SERVICE: 04/09/2019. This 64-year-old woman was admitted with change in mental status also had possible UTI. The patient also had consider possible sepsis. Patient continues to be mildly confused at this time. The patient is on IV antibiotics. Psychiatry seen the patient and the patient did have a long history of psychiatric care with diagnosis of schizophrenia. Recommended continued followup at this time. Acute delirium was considered. Past medical history reviewed. PHYSICAL EXAM: Patient is alert, oriented x3. Pulse 64, blood pressure 130/76, respirations 16, temperature 97.2, pulse ox 97% on room air. HEENT: Conjunctivae normal. NECK: No jugular venous distention. CARDIOVASCULAR: S1, S2 muffled. RESPIRATION: Breath sounds diminished in the bases. No rhonchi. No crackles. Abdomen is soft, nontender. Legs are no edema, no swelling. CENTRAL NERVOUS SYSTEM: No focal deficits. LABS: WBC 8, hemoglobin 11.5, sodium 143, potassium 4.2. UA noted. Cultures are pending. Drug screen is negative. Please note, brain MRI done last year showed age-related atrophy and small-vessel ischemia. CT scan showed extra axial fluid over frontal lobe previously in the last year. ASSESSMENT: 1. Acute urinary tract infection with sepsis, possibly present on admission. 2. Change in mental status possible acute delirium secondary infection. 3. History of noncompliance. 4. Failure of outpatient treatment secondary to noncompliance. 5. Possible sepsis secondary to above. 6. Acute kidney injury, possibly prerenal. 7. Schizophrenia for 20 years. 8. Hypertension, controlled. 9. Degenerative joint disease/rheumatoid arthritis. 10.History of gastroesophageal reflux disease. 11.Cerebrovascular accident, transient ischemic attack. 12.Previous history of smoking. 13.History of hypothyroidism. 14.Morbid obesity 37.6. DISCUSSION AND RECOMMENDATIONS: Recommend to continue current medications, management and continue monitoring and symptomatic treatments. Otherwise, at this time, psychiatric input also appreciated. I would also recommend a CT scan of the brain. Otherwise, continue the antibiotics. Currently patient is on IV Rocephin. Follow cultures. Continue the rest of medications. I would also recommend DVT prophylaxis. Guarded prognosis because of multiple complex medical issues. Further recommendations to follow. Home medications also reconciled. Further recommendations to follow. MMODL / IJN: [id number] /
[2019-04-09] MEDS: cloZAPine 25 MG TAB PO SCH (20:12)
[2019-04-09] MEDS ORDERED: FAMOTIDINE 20 MG TAB PO SCH (21:00)
[2019-04-10] MEDS: LOSARTAN-HCTZ 50-12.5 MG 1 EACH TAB PO SCH (08:12)
[2019-04-10] MEDS: PANTOPRAZOLE 40 MG TABLET PO SCH (08:12)
[2019-04-10] MEDS: LEVOTHYROXINE 75 MCG TAB PO SCH (08:12)
[2019-04-10] MEDS: CHOLECALCIFEROL 1,000 UNIT TAB PO SCH (08:13)
[2019-04-10] MEDS: SERTRALINE 100 MG TAB PO SCH (08:14)
[2019-04-10] MEDS: HEPARIN SODIUM,PORCINE 5,000 UNIT/ML 1 ML VIAL SQ SCH ×3 (08:14→23:45)
[2019-04-10] MEDS: cloZAPine 100 MG TAB PO SCH (08:17)
--- NOTE | 2019-04-10 12:38 | CT ---
EXAMINATION TYPE: CT brain wo con DATE OF EXAM: 04/10/2019 COMPARISON: Previous study dated 03/06/2018 HISTORY: Altered mental status CT DLP: 2032.4 mGycm Automated exposure control for dose reduction was used. FINDINGS: There are prominent sulci over the frontal regions bilaterally, unchanged from previous. This can BE seen in picks disease. Central structures are midline. There is no evidence of hydrocephalus. No acute focal lesion, mass ef fect or midline shift is seen. I do not see evidence of intracranial blood. Visualized portions of the paranasal sinuses and mastoids are clear. The bony calvarium is intact. IMPRESSION: NO ACUTE INTRACRANIAL ABNORMALITY.
[2019-04-10] MEDS: THIAMINE 100 MG TAB PO SCH (15:22)
[2019-04-10] MEDS ORDERED: LORazepam 2 MG/ML INJ IV PRN (18:39)
[2019-04-10] MEDS ORDERED: LORazepam 2 MG/ML INJ IM PRN (18:59)
[2019-04-10] MEDS: LORazepam 2 MG/ML INJ IM PRN (19:02)
--- NOTE | 2019-04-10 20:01 | PN ---
PROGRESS NOTE DATE OF SERVICE: 04/10/2019 HISTORY: This 64-year-old woman who was admitted with change in mental status with possible UTI and sepsis. The patient also confused. Patient also has significant psychiatric issues also. Patient psychiatry has seen the patient. A brain CT scan ordered and showed some atrophy in the frontal temporal area and raised the possibility of Pick's disease. Patient being closely monitored. PAST MEDICAL HISTORY: Past medical history reviewed. PHYSICAL EXAM: Patient is alert, oriented x2. Pulse 63, blood pressure 138/81, respiration 18, temperature 97.7, pulse ox 97% on room air. HEENT: Conjunctivae normal. NECK: No jugular venous distention. CARDIOVASCULAR: S1, S2 muffled. RESPIRATORY: Breath sounds diminished in the bases. A few scattered rhonchi and crackles. ABDOMEN is soft, nontender. LEGS are no edema. NERVOUS SYSTEM: No focal deficits. LABORATORY DATA: CBC within normal limits and sodium 143, potassium 4.2. UA noted. Cultures are pending at this time. ASSESSMENT: 1. Acute urinary tract infection with sepsis present on admission. 2. Change in mental status possible acute delirium secondary to infection. 3. History of noncompliance. 4. 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 5. Failure of outpatient treatment secondary to noncompliance. 6. Acute kidney injury, possibly prerenal. 7. Schizophrenia for 20 years. 8. Hypertension controlled. 9. Degenerative joint disease and rheumatoid arthritis. 10.History of gastroesophageal reflux disease. 11.Cerebrovascular accident/transient ischemic attack. 12.Previous history of smoking. 13.History of hypothyroidism. 14.Morbid obesity 37.6, BMI. RECOMMENDATIONS AND DISCUSSION: Recommend to continue current medications, management, monitoring and symptomatic treatment. Recommend Psychiatry and neurology evaluation. Otherwise, continue the current medications. I would also supplement vitamins. Other than that, DVT prophylaxis. PT/OT evaluation. Guarded prognosis because of multiple complex medical issues. Further recommendations to follow. MMODL / IJN: [id number] / MTDD
[2019-04-10] MEDS: cloZAPine 25 MG TAB PO SCH (22:16)
[2019-04-11] MEDS: cloZAPine 100 MG TAB PO SCH (08:06)
[2019-04-11] MEDS: HEPARIN SODIUM,PORCINE 5,000 UNIT/ML 1 ML VIAL SQ SCH ×2 (08:06→15:47)
[2019-04-11] MEDS: SERTRALINE 100 MG TAB PO SCH (08:06)
[2019-04-11] MEDS: PANTOPRAZOLE 40 MG TABLET PO SCH (08:06)
[2019-04-11] MEDS: LEVOTHYROXINE 75 MCG TAB PO SCH (08:06)
[2019-04-11] MEDS: CHOLECALCIFEROL 1,000 UNIT TAB PO SCH (08:06)
[2019-04-11] MEDS: LOSARTAN-HCTZ 50-12.5 MG 1 EACH TAB PO SCH (08:06)
--- NOTE | 2019-04-11 09:55 | P.CNNES ---
History of Present Illness Consult date: 04/11/19 Requesting physician: Gale Joshi Reason for Consult: Confusion/hallucinations Chief complaint: "wants to go home" History of Present Illness: This is a 64-year-old ambidextrous female with a history of TIA/CVA, hypertension, rheumatoid arthritis, hypothyroidism who initially presented to emergency room because she did not feel well. She was noted to have a urinary tract infection but had not been taking her antibiotics as prescribed a week prior to admission. She also has a history of schizophrenia and is followed by psychiatry who has seen her in the hospital and opined that her confusion and hallucinations are due to delirium from her acute infection. Her psychotropics of Clozaril and Zoloft remain unchanged. The patient this morning does not have any complaints. Nursing staff does inform me that she has exhibited behavioral symptoms. A CT of the head was done with results discussed below, and I was asked to formally consult on this patient. Patient herself denies a history of head trauma or illicit drug use or toxin exposure. No diurnal or stepwise decline in cognition. Her main concern is getting a PET scan to diagnosis schizophrenia. Neurologically, the patient denies changes in vision or hearing, facial droop, bulbar symptoms, new focal numbness or weakness, tremors, seizure or ataxia. Furthermore, patient denies any aura, jeffrey vu or prodrome. No witnessed repetitive behavior suspicious for automatism. No witnessed seizure- like activity. Patient lives alone in a senior apartment. She does have a lead housekeeper, and her family helps her out with several IADLs. Patient states that she is generally independent with her ADLs. Review of Systems 14-point ROS performed and as per HPI. 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 History of Any Multi-Drug Resistant Organisms: None Reported Past Surgical History: Hernia Repair, Hysterectomy, Tonsillectomy Past Psychological History: Schizophrenia Smoking Status: Former smoker Past Alcohol Use History: None Reported Past Drug Use History: None Reported - Past Family History Mother Family Medical History: Cancer Additional Family Medical History / Comment(s): Osteoporosis Sister(s) Family Medical History: Cancer Additional Family Medical History / Comment(s): 2 of 4 with breast Father Family Medical History: Myocardial Infarction ([place]) Additional Family Medical History / Comment(s): Paternal aunt and cousin had schizophrenia Medications and Allergies Home Medications Medication Instructions Recorded Confirmed Type Levothyroxine Sodium [Synthroid] 37.5 mcg PO DAILY 03/07/18 04/07/19 History Losartan/Hydrochlorothiazide 1 tab PO DAILY 03/07/18 04/07/19 History [Losartan-Hctz 50-12.5 mg Tab] Sertraline [Zoloft] 100 mg PO DAILY 03/07/18 04/07/19 History Aspirin [Adult Low Dose Aspirin EC] 81 mg PO DAILY 07/21/18 04/07/19 History Furosemide [Lasix] 20 mg PO DAILY PRN 07/21/18 04/07/19 History Omeprazole 20 mg PO DAILY 07/21/18 04/07/19 History Chlorpheniramine Maleate 4 mg PO Q4H PRN 04/07/19 04/07/19 History [Chlor-Trimeton] Cholecalciferol [Vitamin D3 (25 1,000 unit PO DAILY 04/07/19 04/07/19 History Mcg = 1000 Iu)] Vitamin E(Unknown) 1 tab PO MOTUWETHFR 04/07/19 04/07/19 History cloZAPine [Clozaril] 50 mg PO HS 04/07/19 04/07/19 History cloZAPine [Clozaril] 100 mg PO DAILY 04/07/19 04/07/19 History Allergies Allergy/AdvReac Type Severity Reaction Status Date / Time aspirin Allergy Unknown Verified 04/07/19 16:55 Penicillins Allergy Unknown Verified 04/07/19 16:55 Physical Examination - Vital Signs Vital Signs: Vital Signs Temp Pulse Pulse Resp BP Pulse Ox 04/11/19 08:05 97.1 F L 55 L 18 143/79 96 04/10/19 22:34 73 64 18 04/10/19 14:38 98.0 F 73 18 107/67 98 Intake and Output 04/10/19 04/11/19 04/11/19 22:59 06:59 14:59 Intake Total 300 0 240 Balance 300 0 240 Intake: Oral 300 0 240 Other: # Voids 2 0 1 # Bowel Movements 2 0 0 Gen NAD Pleasant and cooperative HEENT NCAT Sclera without icterus O/P clear Neck Supple No carotid bruit Cor RRR no m/r/g Lungs CTAB Abd Soft NTND +BS Ext Warm to touch No edema Neuro MS A+Ox2 Normal fluency with occasional semantic/phonemic paraphasia and mild perseveration but without echolalia or echopraxia Able to follow all commands CN PERRL VFF no APD EOMI no nystagmus or BILL No facial asymmetry Masseter's symmetric Hearing intact to normal voice bilaterally Speech not dysarthric Equal elevation of palate Tongue midline Sym shrug and SCM bilaterally Motor Normal bulk/tone No pronator or tremors Strength 5/5 sym throughout Sens Intact to LT x4 No neglect or extinction Coord No dysmetria on FTN bilaterally DTRs 1+/4 sym throughout Toes downgoing bilaterally No clonus at achilles Gait Deferred Results - Laboratory Findings CBC and BMP: 04/08/19 08:22 04/08/19 08:22 Abnormal Lab Findings: Abnormal Labs 04/07/19 04/07/19 04/07/19 18:38 18:38 19:01 WBC 12.0 H Neutrophils # 9.6 H Chloride 108 H BUN 23 H Creatinine 1.12 H Glucose 130 H Urine Appearance Turbid H Urine Protein 1+ H Urine Ketones 1+ H Ur Leukocyte Esterase Trace H Urine WBC 8 H Urine Bacteria Rare H Hyaline Casts 105 H Urine Mucus Many H 04/08/19 08:22 WBC Neutrophils # Chloride 108 H BUN Creatinine Glucose 105 H Urine Appearance Urine Protein Urine Ketones Ur Leukocyte Esterase Urine WBC Urine Bacteria Hyaline Casts Urine Mucus 03/07/18 TSH 1.660 - Diagnostic Findings Additional findings: CT head without contrast 04/10/2019. There are prominent sulci over the frontal regions bilaterally, which can be seen in Pick's disease. Central structures are midline. There is no evidence of hydrocephalus. No acute focal lesion, mass effect or midline shift. No intracranial hemorrhage. No acute intracranial abnormalities. I have reviewed all neuro images myself. Assessment and Plan Assessment: 1. AMS/psychosis h/o schizophrenia- agree with psychiatry that this is a delirium due to her acute infection, i.e. UTI. 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 2. Abnormal CT Head- interesting finding with bifrontal atrophy that may influence her behavior. Dementia cannot be accurately diagnosed during acute medical illness. Will need outpatient follow-up. Plan: -Patient had TSH back in 02/2018. Will complete reversible labs with B12 and RPR. -Please refer patient to outpatient neurology for evaluation of frontotemporal dementia. -Appreciate input from psychiatry. -Please call with additional questions. Time with Patient: Greater than 30 (Time spent in direct patient care, greater than 50% of which was spent in [id number] counseling and coordination of care: 70 minutes.)
[2019-04-11] MEDS: MULTIVITAMINS, THERA 1 EACH TAB PO SCH (11:28)
[2019-04-11] MEDS: THIAMINE 100 MG TAB PO SCH (11:28)
[2019-04-11] MEDS: FOLIC ACID 1 MG TAB PO SCH (11:28)
--- NOTE | 2019-04-11 17:59 | PN ---
PROGRESS NOTE DATE OF SERVICE: 04/11/2019 This 64-year-old woman who was admitted with change in mental status and possible metabolic encephalopathy possibly had psychosis as well. The patient also has chronic schizophrenia. The patient apparently tried to escape from the hospital twice. The patient has been petitioned at this time. Psychiatric evaluation is in progress. Neurology has seen the patient today. No chest pain. No palpitation. PHYSICAL EXAMINATION: Alert and oriented x2. Pulse 55, blood pressure 143/79, respiration 18, temperature 97.1, pulse ox 96% on room air. HEENT: Conjunctivae normal. NECK: No jugular venous distention. CARDIOVASCULAR SYSTEM: S1, S2 muffled. RESPIRATORY SYSTEM: Breath sounds diminished at the bases. No rhonchi. No crackles. ABDOMEN: Soft, non-tender. LEGS: No edema. No swelling. NERVOUS SYSTEM: Higher functions as mentioned earlier. Moves all 4 limbs. No focal deficit. LABS: WBC 8, hemoglobin 11.5. UA noted. Urine culture negative so far. ASSESSMENT: 1. Acute urinary tract infection with sepsis, present on admission. 2. Change in mental status, possible acute delirium secondary to infection. 3. History of noncompliance. 4. 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 5. Failure of outpatient treatment secondary to noncompliance. 6. Acute kidney injury, possibly prerenal. 7. Schizophrenia for 20 years. 8. Rule out acute psychosis. 9. Hypertension, uncontrolled. 10.Degenerative joint disease and rheumatoid arthritis. 11.History of gastroesophageal reflux disease. 12.History of cerebrovascular accident, transient ischemic attack. 13.Previous history of smoking. 14.History of hypothyroidism. 15.Morbid obesity with body mass index of 37.6. RECOMMENDATIONS AND DISCUSSION: I recommend to continue current medications, continue with the monitoring, symptomatic treatment. Continue with the antibiotics. Psychiatric evaluation. Possible inpatient psych consultation. Discussed with the family; according to the family, she is definitely much worse than her baseline. MMODL / IJN: [id number] /
[2019-04-11] MEDS: cloZAPine 25 MG TAB PO SCH (20:33)
[2019-04-12] MEDS: HEPARIN SODIUM,PORCINE 5,000 UNIT/ML 1 ML VIAL SQ SCH ×4 (00:37→20:51)
[2019-04-12] MEDS: cloZAPine 100 MG TAB PO SCH (07:27)
[2019-04-12] MEDS: LEVOTHYROXINE 75 MCG TAB PO SCH (07:27)
[2019-04-12] MEDS: PANTOPRAZOLE 40 MG TABLET PO SCH (07:28)
[2019-04-12] MEDS: CHOLECALCIFEROL 1,000 UNIT TAB PO SCH (07:28)
[2019-04-12] MEDS: SERTRALINE 100 MG TAB PO SCH (07:28)
[2019-04-12] MEDS: LOSARTAN-HCTZ 50-12.5 MG 1 EACH TAB PO SCH (07:28)
[2019-04-12] MEDS: MULTIVITAMINS, THERA 1 EACH TAB PO SCH (12:45)
[2019-04-12] MEDS: FOLIC ACID 1 MG TAB PO SCH (12:45)
[2019-04-12] MEDS: CEFDINIR 300 MG CAP PO SCH ×2 (12:45→20:51)
[2019-04-12] MEDS: THIAMINE 100 MG TAB PO SCH (12:45)
[2019-04-12 12:58] LABS: Basophils % (A) 0 %; Eosinophils % (A) 0 %; HCT 35.6 % (34.0-46.0); HGB 11.3 gm/dL (11.4-16.0); Lymphocytes # (A) 1.3 k/uL (1.0-4.8); Lymphocytes % (A) 22 %; MCH 28.4 pg (25.0-35.0); MCHC 31.7 g/dL (31.0-37.0); MCV 89.8 fL (80.0-100.0); Mean Platelet Volume 8.6; Monocytes # (A) 0.4 k/uL (0-1.0); Monocytes % (A) 7 %; Neutrophils # (A) 4.1 k/uL (1.3-7.7); Neutrophils % (A) 70 %; Platelet Count 203 k/uL (150-450); RBC 3.96 m/uL (3.80-5.40); RDW 14.2 % (11.5-15.5); WBC 5.9 k/uL (3.8-10.6)
[2019-04-12 13:11] LABS: Calcium 9.3 mg/dL (8.4-10.2); Potassium 4.5 mmol/L (3.5-5.1)
--- NOTE | 2019-04-12 14:23 | P.PN ---
Subjective Progress Note Date: 04/12/19 Principal diagnosis: Delirium Abnormal CT head Still altered. Getting treatment for UTI. No acute events O/N. Patient without new neuro c/o. Objective - Vital Signs Vital signs: Vital Signs Temp 97.3 F L 04/12/19 04:45 Pulse 88 04/12/19 04:45 Resp 20 04/12/19 08:00 BP 114/79 04/12/19 04:45 Pulse Ox 98 04/12/19 04:45 Intake & Output 04/11/19 04/12/19 04/12/19 18:59 06:59 18:59 Intake Total 720 400 Balance 720 400 Intake: Oral 720 400 Other: Voiding Method Toilet # Voids 1 1 # Bowel Movements 0 - Exam Gen NAD MS A+Ox2 Sometimes non-sensical and tangential speech able to follow basic commands CN II-XII grossly intact no nystagmus Motor No tremors MATIAS x4 Sens Intact to LT x4 Coord Not tested DTRs 2+/4 sym throughout Gait Deferred - Labs CBC & Chem 7: 04/12/19 10:16 04/12/19 10:16 Labs: Abnormal Lab Results - Last 24 Hours (Table) 04/12/19 04/12/19 Range/Units 10:16 10:16 Hgb 11.3 L (11.4-16.0) gm/dL BUN 19 H (7-17) mg/dL Glucose 137 H (74-99) mg/dL Vitamin B12 246 Assessment and Plan Assessment: 1. AMS/psychosis h/o schizophrenia- delirium due to her acute infection, i.e. UTI. 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 2. Abnormal CT Head- interesting finding with bifrontal atrophy with concerns for FTD. Plan: -TSH and RPR unrevealing. -B12 <400. Sent MMA and homocysteine to make sure she does not meet criteria for vitamin B12 deficiency. Incidentally, patient states that she used to get B12 injections. These labs may take a few days to come back, and can be followed up as outpatient. -Please refer patient to outpatient neurology for evaluation of frontotemporal dementia. -Appreciate input from psychiatry. May need psych inpatient stay per their discretion. -No further neuro recs at this time. Please call with new ?. Time with Patient: Less than 30
--- NOTE | 2019-04-12 20:12 | PN ---
PROGRESS NOTE DATE OF SERVICE: 04/12/2019 This 64-year-old woman who was admitted with acute UTI with sepsis also is confused. The patient is being evaluated by Neurology as well as Psychiatry. No chest pain. No palpitations. No fever. On exam, pulse is 87, blood pressure 117/76, respirations 16, temperature 98.4, pulse ox 96% on room air. HEENT: Conjunctivae normal. NECK: No jugular venous distention. CARDIOVASCULAR SYSTEM: S1, S2 muffled. RESPIRATORY SYSTEM: Breath sounds diminished at the bases. No rhonchi. No crackles. ABDOMEN: Soft, non-tender. LEGS: No edema. No swelling. NERVOUS SYSTEM: No focal deficit. LABS: WBC 5.9, hemoglobin 11.3. Sodium 141. UA noted. Cultures are negative so far. ASSESSMENT: 1. Acute urinary tract infection with sepsis, present on admission. 2. Change in mental status, possible acute delirium secondary to infection. 3. History of noncompliance. 4. 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 5. Failure of outpatient treatment secondary to noncompliance. 6. Acute kidney injury, possibly prerenal. 7. Schizophrenia for 20 years. 8. Possible acute psychosis. 9. Hypertension, controlled. 10.Degenerative joint disease and rheumatoid arthritis. 11.History of gastroesophageal reflux disease. 12.History of cerebrovascular accident, transient ischemic attack. 13.Previous history of smoking. 14.History of hypothyroidism. 15.Morbid obesity with a body mass index of 37.6. RECOMMENDATIONS AND DISCUSSION: I recommend to continue current medications, continue with the monitoring, symptomatic treatment. Closely follow with Neurology and Psychiatry. Guarded prognosis because of multiple complex medical issues. Further recommendations to follow. MMODL / IJN: [id number] /
[2019-04-12] MEDS: cloZAPine 25 MG TAB PO SCH (20:50)
[2019-04-13 06:06] VITALS: BP 125/65; PULSE 69; RESP 16; TEMP 97.3
[2019-04-13] MEDS: HEPARIN SODIUM,PORCINE 5,000 UNIT/ML 1 ML VIAL SQ SCH ×2 (07:36→07:41)
[2019-04-13] MEDS: MULTIVITAMINS, THERA 1 EACH TAB PO SCH (07:37)
[2019-04-13] MEDS: LEVOTHYROXINE 75 MCG TAB PO SCH (07:37)
[2019-04-13] MEDS: LOSARTAN-HCTZ 50-12.5 MG 1 EACH TAB PO SCH (07:37)
[2019-04-13] MEDS: SERTRALINE 100 MG TAB PO SCH (07:37)
[2019-04-13] MEDS: FOLIC ACID 1 MG TAB PO SCH (07:37)
[2019-04-13] MEDS: PANTOPRAZOLE 40 MG TABLET PO SCH (07:37)
[2019-04-13] MEDS: CHOLECALCIFEROL 1,000 UNIT TAB PO SCH (07:38)
[2019-04-13] MEDS: cloZAPine 100 MG TAB PO SCH (07:38)
[2019-04-13] MEDS: CEFDINIR 300 MG CAP PO SCH (07:38)
[2019-04-13 10:03] LABS: Basophils % (A) 0 %; Eosinophils % (A) 0 %; HCT 38.1 % (34.0-46.0); Lymphocytes # (A) 1.8 k/uL (1.0-4.8); Lymphocytes % (A) 24 %; MCH 28.2 pg (25.0-35.0); MCHC 31.4 g/dL (31.0-37.0); MCV 89.6 fL (80.0-100.0); Mean Platelet Volume 8.5; Monocytes # (A) 0.4 k/uL (0-1.0); Monocytes % (A) 6 %; Neutrophils # (A) 5.1 k/uL (1.3-7.7); Neutrophils % (A) 69 %; Platelet Count 232 k/uL (150-450); RBC 4.25 m/uL (3.80-5.40); RDW 14.1 % (11.5-15.5); WBC 7.4 k/uL (3.8-10.6)
[2019-04-13] MEDS: THIAMINE 100 MG TAB PO SCH (12:37)
--- NOTE | 2019-04-13 14:58 | P.PN ---
Progress Note - Text Progress Note Date: 04/13/19 Interval History: Patient is a 64-year-old female who is being seen for follow- up, she was seen with both her brother and sister present during the interview at the patient's request. When I asked the patient why she attempted to leave the hospital over the weekend she stated because she wanted to go home and pulled her IV out yesterday afternoon because there is a bruise on her arm. Patient reports that she is feeling much better and not as awful as she was on admission, she denied auditory or visual hallucinations and denied any delusional ideation. Patient states that she will be living with her sister for 2 weeks after she is discharged to make sure that she is compliant with her antibiotics. Patient's brother confirms that the patient had not taken medication for at least 10-12 days prior to coming into the hospital and has had repeated urinary tract infections that have required repeated courses of antibiotic treatment. The patient reported that she is also had several yeast infections during this course of time as well. Mental Status: Appearance/Attitude: Patient is neatly dressed and sitting in a chair in no acute distress and makes eye contact and was cooperative Behavior: Patient does not exhibit any psychomotor agitation or retardation. Speech/Language: Patient speech is spontaneous, normal volume and rhythm and she is coherent Thought Process: Patient is goal-directed no evidence of loose associations Thought Content: Patient denies any auditory or visual hallucinations and no delusions or paranoid ideation or elicited. Patient understands that she needs to continue oral antibiotic treatment after she is discharged to complete the course of treatment for her urinary tract infection. Patient states that she's been sleeping and eating well and reported to me that she had pulled her IV out yesterday because there is a bruise on her arm. Suicidal/Homicidal Ideation: Patient denies any suicidal or homicidal ideation at this time Sensorium/Cognition: Patient is alert and oriented to person, situation and time, further cognitive testing is not performed at this time Mood/Affect: Patient's mood was pleasant and her affect slightly blunted Insight/Judgment: Patient's insight and judgment is fair Assessment: Patient's brother states that every 2 weeks he takes her shopping and they speak on the phone every Thursday as well he usually is the one taking her to her PCPs appointments but on occasion the patient has written the bus there. Patient's sister states that she will be living with her for 2 weeks after discharge so that she can make sure the patient is taking her antibiotics. They both confirm that the patient is usually compliant with her medication as an outpatient, her brother sets up a pillbox for the patient every week. Patient has also been compliant with her follow-up appointments at [facility] and with her case management work or at [facility]. Plan: Patient can be discharged as there is no indication for inpatient psychiatric admission as the patient is not a danger to self or others and is not having any psychotic symptoms at this time and is agreeable to continue treatment and was able to discuss with me her psychiatric medications of Zoloft 100 mg and Clozaril 150 mg which she takes as a combined dose at bedtime when she is at home. Patient is also aware of the need to continue to take her antibiotics and I discussed with both her brother and sister and with the patient that as the patient has had a second delirium while having a urinary tract infection that she is more susceptible to having a delirium on future urinary tract infections and they should be taking her to Dr. Echeverria's office or being informed when she seen there and has a urinary tract infection diagnosed to make sure that she is compliant with the antibiotics. Patient's noncompliance was a result of her delirium. Patient has a follow-up appointment with her psychiatrist and renal case manager on May 24 at 10 and 10:30 respectively, the patient's brother has the contact information for her renal case manager, Sumi at [facility] should they need anything prior to the next appointment or for an earlier appointment as well as the contact number for the mobile crisis unit. I had also spoken with Gabriel the [facility] liaison earlier today about the patient's admission to the Hospital and possible need for an increase in services. Patient will be living with her sister for 2 weeks and then return to her apartment in senior housing and her brother provides most of her assistance paying her bills, taking her shopping and checking up on her weekly as well as setting up her pillbox. Patient will also be given a prescription for CBC with a differential so that she can obtain her next Clozaril refill.
--- NOTE | 2019-04-13 21:53 | DS ---
DISCHARGE SUMMARY DATE OF SERVICE: 04/13/2019. FINAL DIAGNOSES: 1. Acute urinary tract infection with sepsis present on admission. 2. Change in mental status possible acute delirium secondary to infection. 3. History of noncompliance. 4. 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 5. Failure of outpatient treatment secondary to noncompliance. 6. Acute kidney injury, possibly prerenal. 7. Schizophrenia for 20 years. 8. Possible acute psychosis. 9. Hypertension, uncontrolled. 10.Degenerative joint disease. 11.Rheumatoid arthritis. 12.History of gastroesophageal reflux disease. 13.History of cerebrovascular accident, transient ischemic attack. 14.Previous history of smoking. 15.History of hypothyroidism. 16.Morbid obesity with body mass index of 37.6. DISCHARGE DISPOSITION: The patient is being discharged in stable condition with guarded prognosis. Psychiatric cleared the patient for discharge. HISTORY OF PRESENT ILLNESS: This [age] woman with a past medical history of multiple medical problems was admitted with change in mental status with possible UTI with sepsis. Treated with antibiotics. Psychiatry saw the patient and recommended outpatient follow. Neurology also saw the patient. On exam, vital signs are stable. Cardiovascular: S1, S2. Abdomen soft. Nervous System: No focal deficits. DISCHARGE INSTRUCTIONS/MEDICATION: 1. Diet is cardiac diet. 2. Activity limited until follow up. 3. Follow up with Dr. Echeverria in 2-3 days. 4. Follow up with Dr. Radha Aguirre from neurology and as well as [facility] as recommended. MEDICATIONS: 1. Aspirin 81 mg p.o. daily. 2. Chlorpheniramine 4 mg q.4 p.r.n. 3. Clozaril 100 mg p.o. daily and 50 mg q.h.s. 4. Lasix 20 mg p.o. daily p.r.n. 5. Losartan hydrochlorothiazide 50/12.5 mg p.o. daily. 6. Omeprazole 20 mg. 7. Synthroid 75 mcg p.o. daily. 8. Vitamin D3 1000 units daily. 9. Multivitamins 1 p.o. Thursday, , Thursday. 10.Zoloft 100 mg. 11.Ceftin 500 mg p.o. daily for 3 days. 12.Folic acid 1 mg daily. 13.Thiamine 100 mg p.o. daily. 14.Multivitamins 1 p.o. daily. Once again, the patient will be discharged in stable condition with guarded prognosis. MMODL / IJN: [id number] /
--- NOTE | 2019-04-14 11:21 | CDI ---
Documentation Clarification Form Date: 04/14/2019 10:22:31 AM From: Mayra Candelario RN, CCDS Admit Date: 04/09/2019 1:59:00 PM Patient Name: Mary Vyas Visit Number: [id number] Discharge Date: 04/13/2019 3:43:00 PM ATTENTION: The Clinical Documentation Specialists (CDI) and [facility] Coding Staff appreciate your assistance in clarifying documentation. Please respond to the clarification below the line at the bottom and electronically sign. The CDI & [facility] Coding staff will review the response and follow-up if needed. Please note: Queries are made part of the Legal Health Record. If you have any questions, please contact the author of this message via ITS. Dr. Gale Joshi Altered Mental Status was documented in the H&P, consults, progress notes and discharge summary and clarification is needed to confirm a diagnosis. 04/11/19 (Dr. Joshi) Admitted with change in mental status and possible metabolic encephalopathy possibly had psychosis as well. The patient also has chronic schizophrenia. In assessment #2: Change in mental status, possible acute delirium secondary to infection. History/Risk Factors: Schizophrenia, CVA, TIA, GERD, Hypertension, Former smoker Clinical Indicators: 64-year-old female recent diagnosis of UTI, not taking medications as prescribed present with difficult answering question, noted as acutely psychotic. ED evaluation: altered mental status ac psychosis increased schizophrenia and underlying urinary tract infection. Labs: WBC 12.0; UA: trace Leukocyte Esterase, WBC 8, urine bacteria -Rare Brain CT: No acute intracranial abnormality 04/08/19: Psychiatric Consult: Delirium now resolving: schizophrenia. Patients delirium is resolving and is most likely secondary to her UTI and her not taking her antibiotics as an outpatient. 04/11/19: Neurology consult: AMS/Psychosis h/o schizophremia -agree with psychiatry that this is a delirium due to her acute infection, i.e. UTI. No S+S to suggest ROLL FILLER infection or nonconvulsive seizures. 04/08/19 H&P: (Dr. Calderon) Altered mental status due to acute delirium due to infection. Unlikely encephalopathy. Improved now. Possible sepsis. Treatment: Neurological assessment per orders 1:1 Sitter (per safety protocol) Rocephin IV IV Fluid bolus Ativan IV/IM PRN Continue psych meds: Clozaril and Zoloft Outpatient mental health clinic follow-up In your professional opinion, please clarify the etiology of the Altered Mental Status, if known. Acute Delirium secondary to infection Metabolic Encephalopathy with Acute Delirium secondary to infection. Other condition (please specify) Unable to determine (Last Revision: January 2018) Unable to determine MTDD
== END 2019-04-13 15:43 | disposition home or self-care (01) | DRG 872 ==
LOC: EC 16:33 → 4MS4W 20:44 → OBSVTOIN 04-09 13:59
PROVIDERS: ADMIT Hospitalist; ATTEND Hospitalist
DX: A41.9 Sepsis, unspecified organism (principal); F05 Delirium due to known physiological condition; N17.9 Acute kidney failure, unspecified; N39.0 Urinary tract infection, site not specified; E03.9 Hypothyroidism, unspecified; E66.01 Morbid (severe) obesity due to excess calories; E86.0 Dehydration; F03.90 Unspecified dementia, unspecified severity, without behavioral disturbance, psychotic disturbance, mood disturbance, and anxiety; F20.9 Schizophrenia, unspecified; I10 Essential (primary) hypertension; Z86.73 Personal history of transient ischemic attack (TIA), and cerebral infarction without residual deficits; K21.9 Gastro-esophageal reflux disease without esophagitis; M06.9 Rheumatoid arthritis, unspecified; M19.90 Unspecified osteoarthritis, unspecified site; Z68.37 Body mass index [BMI] 37.0-37.9, adult; Z79.82 Long term (current) use of aspirin; Z79.890 Hormone replacement therapy; Z79.899 Other long term (current) drug therapy; Z80.3 Family history of malignant neoplasm of breast; Z82.49 Family history of ischemic heart disease and other diseases of the circulatory system; Z82.62 Family history of osteoporosis; Z87.440 Personal history of urinary (tract) infections; Z87.891 Personal history of nicotine dependence; Z90.710 Acquired absence of both cervix and uterus; T36.96XA Underdosing of unspecified systemic antibiotic, initial encounter; Z91.128 Patient's intentional underdosing of medication regimen for other reason; Z60.2 Problems related to living alone; Z88.6 Allergy status to analgesic agent; Z88.0 Allergy status to penicillin; Z91.19 Patient's noncompliance with other medical treatment and regimen
CPT/HCPCS: 36415; 70450; 80048; 80306; 80320; 80329; 81001; 82075; 82607; 83090; 83520; 83921; 85025; 86780; 96365; 99285

== ENCOUNTER 2020-03-29 13:13 | Inpatient (IN) | payer MEDICARE, MEDICAID ==
--- NOTE | 2020-03-29 13:44 | ED ---
General Adult HPI - General Chief complaint: Psychiatric Symptoms Stated complaint: Mental health Source: patient, family, EMS, RN notes reviewed, old records reviewed Mode of arrival: EMS Limitations: altered mental status - History of Present Illness Initial comments: This is a 65-year-old female who presents emergency Department with a sister because she has acting erratically and is not making sense. Patient has a history of schizophrenia and has been on the same medications for years. Patient just babbling nonstop even when no one is in the room at this time there is no family or anyone also give any history and patient states she doesn't want she's here she doesn't want to be here. Patient denies any physical complaints today. There was some history of prior to coming in that the patient had a UTI. - Related Data Home Medications Medication Instructions Recorded Confirmed Sertraline [Zoloft] 100 mg PO HS 03/07/18 03/29/20 Aspirin [Adult Low Dose Aspirin EC] 81 mg PO DAILY 07/21/18 03/29/20 Furosemide [Lasix] 20 mg PO DAILY PRN 07/21/18 03/29/20 Omeprazole 20 mg PO DAILY 07/21/18 03/29/20 Cholecalciferol [Vitamin D3 (25 1,000 unit PO DAILY 04/07/19 03/29/20 Mcg = 1000 Iu)] cloZAPine [Clozaril] 50 mg PO HS 04/07/19 03/29/20 cloZAPine [Clozaril] 100 mg PO DAILY 04/07/19 03/29/20 Hydrochlorothiazide 12.5 mg PO DAILY 03/29/20 03/29/20 Levothyroxine Sodium [Synthroid] 75 mcg PO HS 03/29/20 03/29/20 Losartan [Cozaar] 25 mg PO BID 03/29/20 03/29/20 Vitamin E 400 unit PO SUMOTUTHFR 03/29/20 03/29/20 Previous Rx's Medication Instructions Recorded Folic Acid 1 mg PO DAILY #30 tablet 04/13/19 Multivitamins, Thera [Multivitamin] 1 tab PO DAILY #30 tablet 04/13/19 Thiamine [Vitamin B-1] 100 mg PO DAILY #30 tablet 04/13/19 Allergies Allergy/AdvReac Type Severity Reaction Status Date / Time aspirin Allergy Unknown Verified 03/29/20 14:39 Penicillins Allergy Unknown Verified 03/29/20 14:39 Review of Systems ROS Statement: Those systems with pertinent positive or pertinent negative responses have been documented in the HPI. ROS Other: All systems not noted in ROS Statement are negative. Past Medical History Past Medical History: CVA/TIA, GERD/Reflux, Hypertension, Osteoarthritis (OA), Thyroid Disorder Additional Past Medical History / Comment(s): Schizophrenia. 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 History of Any Multi-Drug Resistant Organisms: None Reported Past Surgical History: Hernia Repair, Hysterectomy, Tonsillectomy Past Psychological History: Schizophrenia Smoking Status: Former smoker Past Alcohol Use History: None Reported Past Drug Use History: None Reported - Past Family History Mother Family Medical History: Cancer Additional Family Medical History / Comment(s): Osteoporosis Sister(s) Family Medical History: Cancer Additional Family Medical History / Comment(s): 2 of 4 with breast Father Family Medical History: Myocardial Infarction ([place]) Additional Family Medical History / Comment(s): Paternal aunt and cousin had schizophrenia General Exam - General Exam Comments Initial Comments: GENERAL: Patient is well-developed and well-nourished. Patient is nontoxic and well- hydrated and is in no acute distress. ENT: Neck is soft and supple. Moist mucous membranes. Neck has full range of motion without eliciting any pain. EYES: The sclera were anicteric and conjunctiva were pink and moist. Extraocular movements were intact and pupils were equal round and reactive to light. Eyelids were unremarkable. PULMONARY: Unlabored respirations. Good breath sounds bilaterally. No audible rales rhonchi or wheezing was noted. CARDIOVASCULAR: There is a regular rate and rhythm without any murmurs gallops or rubs. ABDOMEN: Soft and nontender with normal bowel sounds. SKIN: Skin is clear with no lesions or rashes and otherwise unremarkable. NEUROLOGIC: Patient is alert and oriented 3. Cranial nerves II through XII are grossly intact. Motor and sensory are also intact. Normal speech, volume and content. Symmetrical smile. MUSCULOSKELETAL: Normal extremities with adequate strength and full range of motion. No lower extremity swelling or edema. No calf tenderness. LYMPHATICS: No significant lymphadenopathy is noted PSYCHIATRIC: Patient is just babbling and is very tangential thinking she is not agitated or violent or aggressive. Patient makes no mention of homicidal or suicidal ideations. Patient is extremely hyperverbal Limitations: altered mental status Course Vital Signs 03/29/20 03/29/20 03/29/20 13:31 14:25 19:04 Temperature 99.8 F H 98 F Pulse Rate 100 107 H 88 Respiratory 20 16 18 Rate Blood Pressure 119/84 113/76 156/92 O2 Sat by Pulse 96 96 99 Oximetry 03/29/20 20:14 Temperature 98 F Pulse Rate 88 Respiratory 18 Rate Blood Pressure 156/92 O2 Sat by Pulse 99 Oximetry Medical Decision Making - Lab Data Result diagrams: 03/29/20 14:14 03/29/20 14:14 Lab Results 03/29/20 03/29/20 03/29/20 Range/Units 14:14 14:14 14:14 WBC 7.3 (3.8-10.6) k/uL RBC 4.00 (3.80-5.40) m/uL Hgb 12.2 (11.4-16.0) gm/dL Hct 35.6 (34.0-46.0) % MCV 88.8 (80.0-100.0) fL MCH 30.4 (25.0-35.0) pg MCHC 34.2 (31.0-37.0) g/dL RDW 13.9 (11.5-15.5) % Plt Count 271 (150-450) k/uL Neutrophils % 70 % Lymphocytes % 23 % Monocytes % 5 % Eosinophils % 1 % Basophils % 0 % Neutrophils # 5.1 (1.3-7.7) k/uL Lymphocytes # 1.7 (1.0-4.8) k/uL Monocytes # 0.4 (0-1.0) k/uL Eosinophils # 0.0 (0-0.7) k/uL Basophils # 0.0 (0-0.2) k/uL Sodium 140 (137-145) mmol/L Potassium 4.1 (3.5-5.1) mmol/L Chloride 105 (98-107) mmol/L Carbon Dioxide 23 (22-30) mmol/L Anion Gap 12 mmol/L BUN 18 H (7-17) mg/dL Creatinine 0.86 (0.52-1.04) mg/dL Est GFR (CKD-EPI)AfAm 83 (>60 ml/min/1.73 sqM) Est GFR (CKD-EPI)NonAf 72 (>60 ml/min/1.73 sqM) Glucose 147 H (74-99) mg/dL Calcium 9.3 (8.4-10.2) mg/dL Total Bilirubin 0.4 (0.2-1.3) mg/dL AST 25 (14-36) U/L ALT 23 (4-34) U/L Alkaline Phosphatase 103 (38-126) U/L Total Protein 7.4 (6.3-8.2) g/dL Albumin 4.2 (3.5-5.0) g/dL TSH 1.860 (0.465-4.680) mIU/L Serum Alcohol <10 mg/dL Disposition Clinical Impression: Psychosis Disposition: ADMITTED IP TO THIS HOSP
[2020-03-29 14:33] LABS: Basophils % (A) 0 %; Eosinophils % (A) 1 %; HCT 35.6 % (34.0-46.0); HGB 12.2 gm/dL (11.4-16.0); Lymphocytes # (A) 1.7 k/uL (1.0-4.8); Lymphocytes % (A) 23 %; MCH 30.4 pg (25.0-35.0); MCHC 34.2 g/dL (31.0-37.0); MCV 88.8 fL (80.0-100.0); Mean Platelet Volume 8.7; Monocytes # (A) 0.4 k/uL (0-1.0); Monocytes % (A) 5 %; Neutrophils # (A) 5.1 k/uL (1.3-7.7); Neutrophils % (A) 70 %; Platelet Count 271 k/uL (150-450); RDW 13.9 % (11.5-15.5); WBC 7.3 k/uL (3.8-10.6)
[2020-03-29 14:42] LABS: Albumin 4.2 g/dL (3.5-5.0); Calcium 9.3 mg/dL (8.4-10.2); Potassium 4.1 mmol/L (3.5-5.1); Total Bilirubin 0.4 mg/dL (0.2-1.3); Total Protein 7.4 g/dL (6.3-8.2)
[2020-03-29 16:53] LABS: Amphetamine Screen,Urine Not Detected (NotDetected); Barbiturate Screen,Urine Not Detected (NotDetected); Benzodiazepines Screen,Urine Not Detected (NotDetected); Cocaine Screen,Urine Not Detected (NotDetected); Methadone Screen, Urine Not Detected (NotDetected); Opiate Screen,Urine Not Detected (NotDetected); Oxycodone Screen, Urine Not Detected (NotDetected); Phencyclidine Screen,Urine Not Detected (NotDetected); Tricyclic Antidepressant,Urine Not Detected (NotDetected); Urn Cannabinoid Scrn Not Detected (NotDetected)
[2020-03-29 19:42] LABS: Appearance,Urine Clear (Clear); Bilirubin,Urine Negative (Negative); Blood,Urine Negative (Negative); Color,Urine Light Yellow; Glucose,Urine (UA) Negative (Negative); Ketones,Urine Negative (Negative); Leukocyte Esterase,Urine Negative (Negative); Nitrite,Urine Negative (Negative); Protein,Urine Negative (Negative); Specific Gravity,Urine 1.006 (1.001-1.035); Urobilinogen,Urine <2.0 mg/dL (<2.0)
[2020-03-29] MEDS ORDERED: MAG HYDROX/AL HYDROX/SIMETH 30 ML CUP PO PRN (20:39)
[2020-03-29] MEDS ORDERED: MAGNESIUM HYDROXIDE 2,400 MG/10 ML CUP PO PRN (20:39)
[2020-03-29] MEDS ORDERED: FUROSEMIDE 20 MG TAB PO PRN (20:44)
[2020-03-29] MEDS ORDERED: WATER FOR INJECTION, STERILE 10 ML IV ONE (20:59)
[2020-03-29] MEDS: LORazepam 2 MG/ML INJ IM PRN (21:25)
[2020-03-29] MEDS: ZIPRASIDONE 20 MG VIAL IM PRN (21:26)
[2020-03-29] MEDS: cloZAPine 25 MG TAB PO SCH (23:02)
[2020-03-29] MEDS: LEVOTHYROXINE 75 MCG TAB PO SCH (23:03)
[2020-03-29] MEDS: LOSARTAN 25 MG TAB PO SCH (23:03)
[2020-03-30 08:26] LABS: Cholesterol 211 mg/dL (<200); HDL Cholesterol 53 mg/dL (40-60); LDL Cholesterol,Calculated 113 mg/dL (0-99); Triglycerides 226 mg/dL (<150)
[2020-03-30] MEDS: THIAMINE 100 MG TAB PO SCH (09:28)
[2020-03-30] MEDS: VITAMIN E (DL,TOCOPHERYL ACET) 400 UNIT CAP PO SCH (09:28)
[2020-03-30] MEDS: LOSARTAN 25 MG TAB PO SCH ×2 (09:28→22:08)
[2020-03-30] MEDS: HYDROCHLOROTHIAZIDE 12.5 MG CAP PO SCH (09:29)
[2020-03-30] MEDS: FOLIC ACID 1 MG TAB PO SCH (09:29)
[2020-03-30] MEDS: PANTOPRAZOLE 40 MG TABLET PO SCH (09:29)
[2020-03-30] MEDS: MULTIVITAMINS, THERA 1 EACH TAB PO SCH (09:29)
[2020-03-30] MEDS: CHOLECALCIFEROL 1,000 UNIT TAB PO SCH (09:29)
[2020-03-30] MEDS: ASPIRIN 81 MG PO SCH (09:29)
[2020-03-30] MEDS: cloZAPine 100 MG TAB PO SCH (09:29)
[2020-03-30] MEDS: ZIPRASIDONE 20 MG VIAL IM PRN (11:33)
--- NOTE | 2020-03-30 14:14 | P.MDCNMH ---
History of Present Illness H&P Date: 03/30/20 Chief Complaint: Altered mental status 65-year-old female who presents emergency Department with a sister because she has acting erratically and is not making sense. Patient has a history of schizophrenia and has been on the same medications for years. Patient just babbling nonstop even when no one is in the room at this time there is no family or anyone also give any history and patient states she doesn't want she's here she doesn't want to be here. Patient denies any physical complaints today. There was some history of prior to coming in that the patient had a UTI. Review of Systems REVIEW OF SYSTEMS: CONSTITUTIONAL: No fever, no malaise, no fatigue. HEENT: No recent visual problems or hearing problems. Denied any sore throat. CARDIOVASCULAR: No chest pain, orthopnea, PND, no palpitations, no syncope. PULMONARY: No shortness of breath, no cough, no hemoptysis. GASTROINTESTINAL: No diarrhea, no nausea, no vomiting, no abdominal pain. NEUROLOGICAL: No headaches, no weakness, no numbness. HEMATOLOGICAL: Denies any bleeding or petechiae. GENITOURINARY: Denies any burning micturition, frequency, or urgency. MUSCULOSKELETAL/RHEUMATOLOGICAL: Denies any joint pain, swelling, or any muscle pain. ENDOCRINE: Denies any polyuria or polydipsia. The rest of the 14-point review of systems is negative. Past Medical History Past Medical History: CVA/TIA, GERD/Reflux, Hypertension, Osteoarthritis (OA), Thyroid Disorder Additional Past Medical History / Comment(s): Schizophrenia. 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 History of Any Multi-Drug Resistant Organisms: None Reported Past Surgical History: Hernia Repair, Hysterectomy, Tonsillectomy Past Psychological History: Schizophrenia Smoking Status: Former smoker Past Alcohol Use History: None Reported Past Drug Use History: None Reported - Past Family History Mother Family Medical History: Cancer Additional Family Medical History / Comment(s): Osteoporosis Sister(s) Family Medical History: Cancer Additional Family Medical History / Comment(s): 2 of 4 with breast Father Family Medical History: Myocardial Infarction ([place]) Additional Family Medical History / Comment(s): Paternal aunt and cousin had schizophrenia Medications and Allergies Home Medications Medication Instructions Recorded Confirmed Type Sertraline [Zoloft] 100 mg PO HS 03/07/18 03/29/20 History Aspirin [Adult Low Dose Aspirin EC] 81 mg PO DAILY 07/21/18 03/29/20 History Furosemide [Lasix] 20 mg PO DAILY PRN 07/21/18 03/29/20 History Omeprazole 20 mg PO DAILY 07/21/18 03/29/20 History Cholecalciferol [Vitamin D3 (25 1,000 unit PO DAILY 04/07/19 03/29/20 History Mcg = 1000 Iu)] cloZAPine [Clozaril] 50 mg PO HS 04/07/19 03/29/20 History cloZAPine [Clozaril] 100 mg PO DAILY 04/07/19 03/29/20 History Folic Acid 1 mg PO DAILY #30 tablet 04/13/19 03/29/20 Rx Multivitamins, Thera [Multivitamin] 1 tab PO DAILY #30 tablet 04/13/19 03/29/20 Rx Thiamine [Vitamin B-1] 100 mg PO DAILY #30 tablet 04/13/19 03/29/20 Rx Hydrochlorothiazide 12.5 mg PO DAILY 03/29/20 03/29/20 History Levothyroxine Sodium [Synthroid] 75 mcg PO HS 03/29/20 03/29/20 History Losartan [Cozaar] 25 mg PO BID 03/29/20 03/29/20 History Vitamin E 400 unit PO SUMOTUTHFR 03/29/20 03/29/20 History Allergies Allergy/AdvReac Type Severity Reaction Status Date / Time aspirin Allergy Unknown Verified 03/29/20 14:39 Penicillins Allergy Unknown Verified 03/29/20 14:39 Physical Exam Vitals: Vital Signs Temp Pulse Pulse Resp BP BP Pulse Ox 03/30/20 09:24 103 H 120/71 03/30/20 03:35 97.9 F 90 18 110/64 96 03/29/20 20:38 97.0 F L 113 H 18 116/60 98 03/29/20 20:14 98 F 88 18 156/92 99 03/29/20 19:04 98 F 88 18 156/92 99 03/29/20 14:25 107 H 16 113/76 96 03/29/20 13:31 99.8 F H 100 20 119/84 96 - Constitutional General appearance: Present: average body habitus, cooperative, no acute distress - EENT Eyes: Present: anicteric sclerae, EOMI, PERRLA, normal appearance ENT: Present: hearing grossly normal, normal oropharynx Ears: bilateral: normal - Neck Neck: Present: normal ROM. Absent: lymphadenopathy, rigidity, thyromegaly Carotids: negative: bruit present Thyroid: bilateral: normal size, negative: enlarged, nodule - Respiratory Respiratory: bilateral: CTA, negative: rales, rhonchi, wheezing - Cardiovascular Rhythm: regular Heart sounds: normal: S1, S2 Abnormal Heart Sounds: Absent: systolic murmur, diastolic murmur - Gastrointestinal General gastrointestinal: Present: normal bowel sounds, soft. Absent: distended, organomegaly, tenderness - Genitourinary Genitourinary Comment(s): deferred - Integumentary Integumentary: Present: normal turgor. Absent: jaundiced, rash, ulcer - Neurologic Neurologic: Present: CNII-XII intact. Absent: focal deficits - Musculoskeletal Musculoskeletal: Present: gait normal, strength equal bilaterally - Psychiatric Psychiatric: Present: A&O x's 3, appropriate affect, intact judgment & insight Cranial Nerve Examination - Cranial Nerves Cranial Nerve II- Optic: Intact Cranial Nerve III- Oculomotor: Intact Cranial Nerve IV- Trochlear: Intact Cranial Nerve V- Trigeminal: Intact Cranial Nerve - Abducens: Intact Cranial Nerve VII- Facial: Intact Cranial Nerve VIII- Auditory: Intact Cranial Nerve IX- Glossopharyngeal: Intact Cranial Nerve X- Vagus: Intact Cranial Nerve XI- Accessory: Intact Cranial Nerve XII- Hypoglossal: Intact Results CBC & Chem 7: 03/29/20 14:14 03/29/20 14:14 Labs: Abnormal Lab Results - Last 24 Hours (Table) 03/29/20 03/30/20 Range/Units 14:14 07:26 BUN 18 H (7-17) mg/dL Glucose 147 H (74-99) mg/dL Triglycerides 226 H (<150) mg/dL Cholesterol 211 H (<200) mg/dL LDL Cholesterol, Calc 113 H (0-99) mg/dL Assessment and Plan Assessment: 1. Acute psychosis; your management 2. Hypertension; hydro-Diuril 12.5 mg daily along with Lasix 20 mg daily when necessary; losartan 25 mg twice a day 3. Hypothyroidism; levothyroxin 75 MCG daily 4. Gastroesophageal reflux disease; continue with home dose of Protonix 40 mg daily 5. History of TIA/CVA; continue with current dose of aspirin 6. Vitamin D deficiency; vitamin D 3000 IUs daily DVT prophylaxis; early ambulation CODE STATUS; full code
--- NOTE | 2020-03-30 14:21 | P.HP ---
Psychiatric H&P - . H&P Date: 03/30/20 History & Physical: IDENTIFYING DATA: She is a 65-year-old single female who has history of family severe and persistent mental illness. HISTORY OF PRESENT ILLNESS: She presented to the unit involuntarily. Her sister, Gena, completed the petition for hospitalization that read "runs away, paranoid, manic, irritable, psychotic and roaming the highways." Mary was unable to provide a coherent history. Her speech was disorganized and at times incoherent. I could not understand her answers to questions. At times she appeared to be talking about past experiences of past events. I spoke to her sister Catrachita. Gena complained of September 20summer where we had a "breakdown". Last year she became unwell when she developed a UTI. Gena emphasized that usually Mary talks slowly and deliberately. She questioned whether Mary has been compliant with her medications. She noticed a change beginning about 3 weeks ago. Mary became more irritable and her speech became fast and disorganized. Gena became concerned when she spoke to her yesterday. Mary speech was incoherent and she was talking "nonstop". Gena is concerned about her safety because 3 or 4 days ago she impulsively left the apartment and took a "long walk". "Someone saw her and called the police." She had $600 on her person. She was held that "the [facility]" overnight. PAST PSYCHIATRIC HISTORY: She was first diagnosed with schizophrenia when she was 17 years old. She is had multiple psychiatric hospitalizations including [facility] but according to her sister has done fairly well over the last 10 years. She been treated with clozapine since 1991 and currently is prescribed 100 mg in the morning and 50 mg at bedtime. PAST MEDICAL HISTORY: She has history of CVA/TIA, GERD, hypertension, osteoarthritis, rheumatoid arthritis, hypothyroidism and status post hysterectomy. ALLERGIES: Aspirins, penicillin SUBSTANCE USE HISTORY: She denied history of substance use and Gena confirmed that she has no history of alcohol or drug use problems. FAMILY PSYCHIATRIC/SUBSTANCE USE HISTORY: Gena stated that there is a presence of schizophrenia and mental illness in the paternal family. Several aunts and cousins have been diagnosed with schizophrenia. Their mother had OCD and was "a hoarder". LEGAL HISTORY: She has no history of legal problems. SOCIAL HISTORY: She is born and raised in an intact family. She is 1 of 7 children. She is single and has no children. She lives alone in a citizen's apartment with the support of her brother and sister. She does not have a guardian. MENTAL STATUS EXAM: She presented as a casually groomed elderly female who was pleasant on approach. She made eye contact and appeared to attend to the interview. She had no distinguishing features or prominent physical abnormalities. She had a bright almost elated facial expression. She was alert and oriented to person. I could not understand her responses to questions about date and time. She was not restless or agitated. She showed no abnormal movements. Her speech was spontaneous, with increased rate and rhythm. She was hyperverbal and at times not directable. Her affect was elevated but not intense or inappropriate. She did not express suicidal ideation or wishes. She did not express suicidal ideation or wishes. She denied homicidal ideation. She did not expressed depressive cognitions such as hopelessness, helplessness or worthlessness. Her thinking was too disorganized to fully evaluate ideas reference, paranoid ideation or delusional beliefs. Her thinking was concrete, disorganized and incoherent. She did not appear to be responding to internal stimuli. STRENGTHS: Stable housing, stable income, supportive family, engagement with mental health services WEAKNESSES: Chronic and persistent and severe mental illness. IMPRESSION: She is a single 65-year-old female who has a history of chronic and persistent mental illness with early age of onset. She has been maintained on outpatient basis with combination clozapine an antidepressant. She presents the unit hyperverbal, disorganized and confused. She should be treated inpatient basis with combination of psychopharmacology and multimodal therapy. PRINCIPLE DIAGNOSIS: Schizophrenia, rule out schizoaffective disorder, rule out unspecified cognitive disorder RECOMMENDATION: Admitted to the psychiatric unit involuntarily. Safety precautions. Continue clozapine 50 mg at bedtime and 100 mg daily. Hold Zoloft 100 mg at bedtime. Consult medicine for initial physical exam and medical history. Evaluate clinical status response to treatment daily basis. horse stud worker completed initial psychosocial assessment and coordinate discharge and aftercare. Encourage participation in therapeutic groups and activities. Allergies Allergy/AdvReac Type Severity Reaction Status Date / Time aspirin Allergy Unknown Verified 03/29/20 14:39 Penicillins Allergy Unknown Verified 03/29/20 14:39 Vital Signs Temp 97.3 F L 03/30/20 13:00 Pulse 103 H 03/30/20 09:24 Resp 18 03/30/20 03:35 BP 120/71 03/30/20 09:24 Pulse Ox 96 03/30/20 03:35 Intake & Output 03/29/20 03/30/20 03/30/20 18:59 06:59 18:59 Weight 104.326 kg Laboratory Last Values WBC 7.3 k/uL (3.8-10.6) 03/29/20 14:14 RBC 4.00 m/uL (3.80-5.40) 03/29/20 14:14 Hgb 12.2 gm/dL (11.4-16.0) 03/29/20 14:14 Hct 35.6 % (34.0-46.0) 03/29/20 14:14 MCV 88.8 fL (80.0-100.0) 03/29/20 14:14 MCH 30.4 pg (25.0-35.0) 03/29/20 14:14 MCHC 34.2 g/dL (31.0-37.0) 03/29/20 14:14 RDW 13.9 % (11.5-15.5) 03/29/20 14:14 Plt Count 271 k/uL (150-450) 03/29/20 14:14 Neutrophils % 70 % 03/29/20 14:14 Lymphocytes % 23 % 03/29/20 14:14 Monocytes % 5 % 03/29/20 14:14 Eosinophils % 1 % 03/29/20 14:14 Basophils % 0 % 03/29/20 14:14 Neutrophils # 5.1 k/uL (1.3-7.7) 03/29/20 14:14 Lymphocytes # 1.7 k/uL (1.0-4.8) 03/29/20 14:14 Monocytes # 0.4 k/uL (0-1.0) 03/29/20 14:14 Eosinophils # 0.0 k/uL (0-0.7) 03/29/20 14:14 Basophils # 0.0 k/uL (0-0.2) 03/29/20 14:14 Sodium 140 mmol/L (137-145) 03/29/20 14:14 Potassium 4.1 mmol/L (3.5-5.1) 03/29/20 14:14 Chloride 105 mmol/L (98-107) 03/29/20 14:14 Carbon Dioxide 23 mmol/L (22-30) 03/29/20 14:14 Anion Gap 12 mmol/L 03/29/20 14:14 BUN 18 mg/dL (7-17) H 03/29/20 14:14 Creatinine 0.86 mg/dL (0.52-1.04) 03/29/20 14:14 Est GFR (CKD-EPI)AfAm 83 (>60 ml/min/1.73 sqM) 03/29/20 14:14 Est GFR (CKD-EPI)NonAf 72 (>60 ml/min/1.73 sqM) 03/29/20 14:14 Glucose 147 mg/dL (74-99) H 03/29/20 14:14 Calcium 9.3 mg/dL (8.4-10.2) 03/29/20 14:14 Total Bilirubin 0.4 mg/dL (0.2-1.3) 03/29/20 14:14 AST 25 U/L (14-36) 03/29/20 14:14 ALT 23 U/L (4-34) 03/29/20 14:14 Alkaline Phosphatase 103 U/L (38-126) 03/29/20 14:14 Total Protein 7.4 g/dL (6.3-8.2) 03/29/20 14:14 Albumin 4.2 g/dL (3.5-5.0) 03/29/20 14:14 Triglycerides 226 mg/dL (<150) H 03/30/20 07:26 Cholesterol 211 mg/dL (<200) H 03/30/20 07:26 LDL Cholesterol, Calc 113 mg/dL (0-99) H 03/30/20 07:26 HDL Cholesterol 53 mg/dL (40-60) 03/30/20 07:26 TSH 1.860 mIU/L (0.465-4.680) 03/29/20 14:14 Urine Color Light Yellow 03/29/20 Unknown Urine Appearance Clear (Clear) 03/29/20 Unknown Urine pH 6.0 (5.0-8.0) 03/29/20 Unknown Ur Specific [place] 1.006 (1.001-1.035) 03/29/20 Unknown Urine Protein Negative (Negative) 03/29/20 Unknown Urine Glucose (UA) Negative (Negative) 03/29/20 Unknown Urine Ketones Negative (Negative) 03/29/20 Unknown Urine Blood Negative (Negative) 03/29/20 Unknown Urine Nitrite Negative (Negative) 03/29/20 Unknown Urine Bilirubin Negative (Negative) 03/29/20 Unknown Urine Urobilinogen <2.0 mg/dL (<2.0) 03/29/20 Unknown Ur Leukocyte Esterase Negative (Negative) 03/29/20 Unknown Urine Opiates Screen Not Detected (NotDetected) 03/29/20 Unknown Ur Oxycodone Screen Not Detected (NotDetected) 03/29/20 Unknown Urine Methadone Screen Not Detected (NotDetected) 03/29/20 Unknown Ur Propoxyphene Screen Not Detected (NotDetected) 03/29/20 Unknown Ur Barbiturates Screen Not Detected (NotDetected) 03/29/20 Unknown U Tricyclic Antidepress Not Detected (NotDetected) 03/29/20 Unknown Ur Phencyclidine Scrn Not Detected (NotDetected) 03/29/20 Unknown Ur Amphetamines Screen Not Detected (NotDetected) 03/29/20 Unknown U Methamphetamines Scrn Not Detected (NotDetected) 03/29/20 Unknown U Benzodiazepines Scrn Not Detected (NotDetected) 03/29/20 Unknown Urine Cocaine Screen Not Detected (NotDetected) 03/29/20 Unknown U Marijuana (THC) Screen Not Detected (NotDetected) 03/29/20 Unknown Serum Alcohol <10 mg/dL 03/29/20 14:14 03/30/20 14:05
[2020-03-30 17:06] LABS: Hemoglobin A1C 5.8 % (4.0-6.0)
[2020-03-30] MEDS: LEVOTHYROXINE 75 MCG TAB PO SCH (22:08)
[2020-03-30] MEDS: cloZAPine 25 MG TAB PO SCH (22:08)
[2020-03-31] MEDS: ZIPRASIDONE 20 MG VIAL IM PRN (07:01)
[2020-03-31] MEDS: PANTOPRAZOLE 40 MG TABLET PO SCH (09:08)
--- NOTE | 2020-03-31 09:36 | P.PN ---
Progress Note - Text Progress Note Date: 03/31/20 Interval history: Patient was seen wandering the hallways and was directable and agreeable to s peak with technical writer and editor. Patient appeared to be intrusive bizarre and disorganized in her speech. Patient rambled on and was illogical during the interview. She claims that she is the hospital for "being crazy again" and gave several inappropriate answers. Patient commented on technical writer and editor's parents several times. She claims that "other people can hear me". She claims that she slept last night however did not say how many hours. She claims that her appetite is fair. Patient was responding to internal stimuli. At this time patient denies any suicidal or homicidal ideations intent or plan. Denies any Auditory or visual hallucinations. Patient has been selectively refusing medications. Mental status exam: General Appearance: Patient appears to be stated age is alert, bizarre and difficult to redirect. Wearing hospital gown. Behavior: No agitated behavior. Bizarre and responding to internal stimuli Speech: Patient's speech is fluent and nonpressured. Mood/Affect: Mood is "fine", affect is congruent and constricted. Suicidality/Homicidality: Patient denies having any suicidal or homicidal ideation intent or plan. Perceptions: Patient denies any auditory or visual hallucinations. Though content/process: Disorganized, illogical with loose associations. Memory and concentration: AOX2, patient does not know the date today Judgment and insight: Poor Assessment/Plan: Continue with current diagnosis. Patient continues to meet criteria for inpatient psychiatric admission for symptom stabilization and safety.Patient will be maintained on current psychotropic medication regimen. M onitor for medication compliance and for any psychotropic medication side effects. Will continue to monitor ongoing response to treatment. Encouraged participation in milieu.
[2020-03-31] MEDS: ASPIRIN 81 MG PO SCH (09:45)
[2020-03-31] MEDS: CHOLECALCIFEROL 1,000 UNIT TAB PO SCH (09:45)
[2020-03-31] MEDS: MULTIVITAMINS, THERA 1 EACH TAB PO SCH (09:45)
[2020-03-31] MEDS: FOLIC ACID 1 MG TAB PO SCH (09:45)
[2020-03-31] MEDS: HYDROCHLOROTHIAZIDE 12.5 MG CAP PO SCH (09:45)
[2020-03-31] MEDS: THIAMINE 100 MG TAB PO SCH (09:45)
[2020-03-31] MEDS: LOSARTAN 25 MG TAB PO SCH ×3 (09:45→22:37)
[2020-03-31] MEDS: cloZAPine 100 MG TAB PO SCH (09:45)
[2020-03-31] MEDS: LORazepam 1 MG TAB PO PRN (16:25)
[2020-03-31] MEDS: LEVOTHYROXINE 75 MCG TAB PO SCH ×2 (22:20→22:39)
[2020-03-31] MEDS: cloZAPine 25 MG TAB PO SCH ×2 (22:20→22:38)
[2020-04-01] MEDS: VITAMIN E (DL,TOCOPHERYL ACET) 400 UNIT CAP PO SCH (09:18)
[2020-04-01] MEDS: THIAMINE 100 MG TAB PO SCH (09:18)
[2020-04-01] MEDS: MULTIVITAMINS, THERA 1 EACH TAB PO SCH (09:18)
[2020-04-01] MEDS: CHOLECALCIFEROL 1,000 UNIT TAB PO SCH (09:18)
[2020-04-01] MEDS: cloZAPine 100 MG TAB PO SCH (09:18)
[2020-04-01] MEDS: ASPIRIN 81 MG PO SCH (09:18)
[2020-04-01] MEDS: FOLIC ACID 1 MG TAB PO SCH (09:18)
[2020-04-01] MEDS: HYDROCHLOROTHIAZIDE 12.5 MG CAP PO SCH (09:18)
[2020-04-01] MEDS: LOSARTAN 25 MG TAB PO SCH ×2 (09:18→22:06)
[2020-04-01] MEDS: PANTOPRAZOLE 40 MG TABLET PO SCH (09:18)
--- NOTE | 2020-04-01 11:36 | P.PN ---
Progress Note - Text Progress Note Date: 04/01/20 Interval history: Patient was seen taking part in activities group today and was initially resi stant to speak to rewriter however was eventually directable and agreeable to speak with rewriter. Patient appears to continue to be responding to internal stimuli and speaking to herself. She showed her finger to rewriter several times which had a bandage over it. She spoke about getting her blood drawn. She was mainly illogical and tangential during conversation however appeared to be more directable today and less intrusive. She claims that she slept last night however did not say how many hours. She claims that her appetite is fair. Patient was responding to internal stimuli. At this time patient denies any suicidal or homicidal ideations intent or plan. Denies any Auditory or visual hallucinations. Mental status exam: General Appearance: Patient appears to be stated age is alert, bizarre and more directable today. Wearing hospital gown. Behavior: No agitated behavior. Bizarre and responding to internal stimuli Speech: Patient's speech is fluent and nonpressured. Mood/Affect: Mood is "ok", affect is incongruent and constricted. Suicidality/Homicidality: Patient denies having any suicidal or homicidal ideation intent or plan. Perceptions: Patient denies any auditory or visual hallucinations. Though content/process: Disorganized, illogical with loose associations. Memory and concentration: AOX2, patient does not know the date today Judgment and insight: Poor Assessment/Plan: Continue with current diagnosis. Patient continues to meet criteria for inpatient psychiatric admission for symptom stabilization and safety.Patient will be maintained on current psychotropic medication regimen. Monitor for medication compliance and for any psychotropic medication side effects. Will continue to monitor ongoing response to treatment. Encouraged participation in milieu.
[2020-04-01] MEDS: LEVOTHYROXINE 75 MCG TAB PO SCH (22:06)
[2020-04-01] MEDS: cloZAPine 25 MG TAB PO SCH (22:06)
[2020-04-02] MEDS: PANTOPRAZOLE 40 MG TABLET PO SCH (05:12)
[2020-04-02 09:40] LABS: Clozapine (Clozaril) 294 ng/mL (200-700); Norclozapine 165 ng/mL (200-700)
[2020-04-02] MEDS: CHOLECALCIFEROL 1,000 UNIT TAB PO SCH (10:26)
[2020-04-02] MEDS: HYDROCHLOROTHIAZIDE 12.5 MG CAP PO SCH (10:26)
[2020-04-02] MEDS: cloZAPine 100 MG TAB PO SCH (10:26)
[2020-04-02] MEDS: FOLIC ACID 1 MG TAB PO SCH (10:26)
[2020-04-02] MEDS: ASPIRIN 81 MG PO SCH (10:26)
[2020-04-02] MEDS: VITAMIN E (DL,TOCOPHERYL ACET) 400 UNIT CAP PO SCH (10:26)
[2020-04-02] MEDS: LOSARTAN 25 MG TAB PO SCH ×2 (10:26→20:31)
[2020-04-02] MEDS: MULTIVITAMINS, THERA 1 EACH TAB PO SCH (10:27)
[2020-04-02] MEDS: THIAMINE 100 MG TAB PO SCH (10:28)
--- NOTE | 2020-04-02 11:38 | P.PN ---
Progress Note - Text Progress Note Date: 04/02/20 Clinical Problems: Schizophrenia, poor compliance with psychiatric treatment, hypertension, hypothyroidism, GERD, history of TIA/CVA, vitamin D deficiency Interim history: I reviewed the medical record, interviewed the patient and discussed her treatment and treatment plan during team meeting. She has been refusing clozapine the at bedtime dose of clozapine as been taking the morning dose. I spoke with her to understand her reason for refusing the medication. Her speech was difficult to understand. The best I understood is that she believes she needs a "medication change" but does not trust us enough to accept our recommendation. She perseverated about "Dr. Bernstein" and "Dr. Raygoza." She does not want to meet with Dr. Raygoza because "she is too expensive." She is intermittently attended therapeutic groups and activities. She only slept 3 hours last night. Her serum level of clozapine was 294 and [place] clozapine 165. Mental status exam: She presented as a casually groomed and restless elderly woman who was pleasant on approach. She made eye contact and appeared to attend to interview. Her speech was grossly disorganized but spontaneous with increased rate and rhythm. Her speech had a "singsong" quality. Her affect was elevated but not inappropriate. She did not express suicidal ideation or wishes. She perseverated about her primary care doctor and the cost of her outpatient psychiatric care. Her thinking was illogical and mostly incoherent. She did not appear to be responding to internal stimuli. Assessment: She remains actively mentally ill and minimally change from admission. She is refusing her evening dose of clozapine. Plan: Continue involuntary hospitalization. Change clozapine dosing to 150 mg in the morning. We may need to transition to a long-acting injectable medication she continues to refuse the oral dose. Continue safety precautions. Encourage participation in therapeutic groups and activities. Evaluate clinical status response to treatment daily basis.
[2020-04-02] MEDS: ZIPRASIDONE 20 MG VIAL IM PRN (16:49)
[2020-04-02] MEDS: cloZAPine 25 MG TAB PO SCH (20:31)
[2020-04-03] MEDS: LEVOTHYROXINE 75 MCG TAB PO SCH (06:06)
[2020-04-03] MEDS: LORazepam 1 MG TAB PO PRN (06:06)
[2020-04-03] MEDS: ZIPRASIDONE 20 MG VIAL IM PRN (06:10)
[2020-04-03] MEDS: LORazepam 2 MG/ML INJ IM PRN (06:10)
[2020-04-03] MEDS: VITAMIN E (DL,TOCOPHERYL ACET) 400 UNIT CAP PO SCH (08:31)
[2020-04-03] MEDS: PANTOPRAZOLE 40 MG TABLET PO SCH (08:32)
[2020-04-03] MEDS: HYDROCHLOROTHIAZIDE 12.5 MG CAP PO SCH (08:32)
[2020-04-03] MEDS: FOLIC ACID 1 MG TAB PO SCH (08:32)
[2020-04-03] MEDS: ASPIRIN 81 MG PO SCH (08:32)
[2020-04-03] MEDS: MULTIVITAMINS, THERA 1 EACH TAB PO SCH (08:32)
[2020-04-03] MEDS: THIAMINE 100 MG TAB PO SCH (08:32)
[2020-04-03] MEDS: CHOLECALCIFEROL 1,000 UNIT TAB PO SCH (08:34)
[2020-04-03] MEDS ORDERED: cloZAPine 100 MG TAB PO SCH (09:00)
--- NOTE | 2020-04-03 12:54 | P.PN ---
Progress Note - Text Progress Note Date: 04/03/20 Clinical Problems: Schizophrenia, poor compliance with psychiatric treatment, hypertension, hypothyroidism, GERD, history of TIA/CVA, vitamin D deficiency Interim history: I reviewed the medical record, interviewed the patient and discussed her treatment and treatment plan during team meeting. She took the 50 mg dose of clozapine last night as well as to 150 mg dose this morning. She was sedated, laying in bed but would not answer questions.. She was markedly agitated, hostile, irritable and disorganized yesterday. Mental status exam: She presented as a casually groomed and restless elderly woman who was pleasant on approach. She did not eye contact and did not appear to attend to interview. She was sedated. She did not express suicidal ideation or wishes. She did not talk and I could not evaluate her thought content. Assessment: She is sedated from the current dose of clozapine supporting her sister opinion that she was not compliant with the medication. Plan: Continue involuntary hospitalization. Change clozapine dosing to 150 mg in the morning and 50 mg at bedtime. Consider switching the dosing so she gets the majority of the dose in the evening rather than in the morning. We may need to transition to a long-acting injectable medication she continues to refuse the oral dose. Continue safety precautions. Encourage participation in therapeutic groups and activities. Evaluate clinical status response to treatment daily basis.
[2020-04-03] MEDS: LOSARTAN 25 MG TAB PO SCH ×2 (13:09→20:16)
[2020-04-03] MEDS: cloZAPine 25 MG TAB PO SCH (20:16)
[2020-04-04] MEDS: LORazepam 1 MG TAB PO PRN ×2 (02:51→11:02)
[2020-04-04] MEDS: ACETAMINOPHEN TAB 325 MG TAB PO PRN (02:54)
[2020-04-04] MEDS ORDERED: cloZAPine 100 MG TAB PO SCH ×2 (09:00→21:00)
[2020-04-04] MEDS: LEVOTHYROXINE 75 MCG TAB PO SCH (09:03)
[2020-04-04] MEDS: HYDROCHLOROTHIAZIDE 12.5 MG CAP PO SCH (09:03)
[2020-04-04] MEDS: THIAMINE 100 MG TAB PO SCH (09:03)
[2020-04-04] MEDS: FOLIC ACID 1 MG TAB PO SCH (09:04)
[2020-04-04] MEDS: MULTIVITAMINS, THERA 1 EACH TAB PO SCH (09:04)
[2020-04-04] MEDS: PANTOPRAZOLE 40 MG TABLET PO SCH (09:04)
[2020-04-04] MEDS: ASPIRIN 81 MG PO SCH (09:04)
[2020-04-04] MEDS: CHOLECALCIFEROL 1,000 UNIT TAB PO SCH (09:04)
[2020-04-04] MEDS: LOSARTAN 25 MG TAB PO SCH ×2 (09:05→21:05)
--- NOTE | 2020-04-04 11:29 | P.PN ---
Progress Note - Text Progress Note Date: 04/04/20 Clinical Problems: Schizophrenia, poor compliance with psychiatric treatment, hypertension, hypothyroidism, GERD, history of TIA/CVA, vitamin D deficiency Interim history: I reviewed the medical record, interviewed the patient and discussed her treatment and treatment plan during team meeting. She became acutely distress yesterday morning and received 1 mg of Ativan and 20 mg of Geodon IM with the assistance of security. She slept most of yesterday after receiving the IM injections. Her speech is difficult to understand but was less pressured than on admission. She has been compliant with medication and has no posed no management problems last 24 hours. She deferred the probate hearing. Mental status exam: She presented as a disheveled appearing elderly woman with white hair. She walks slowly with a limp. She did not pay contact but appeared to attend to the interview. She had a blunted facial expression. She was not restless or agitated. Her speech was spontaneous, dysarthric and with normal maci and volume. Her affect was blunted but stable and appropriate. She did not express suicidal ideation or wishes. She did not express clear ideas reference or paranoid ideation. Her thinking was concrete and associations appeared coherent, logical and goal directed. She did not appear to be responding to internal stimuli. Assessment: She is sedated from the current dose of clozapine supporting her sister opinion that she was not compliant with the medication. Plan: Continue inpatient treatment due to the severity of her psychotic symptoms. Increase clozapine to 100 mg by mouth twice a day, obtain CBC with differential. We may need to transition to a long-acting injectable medication she continues to refuse the oral dose. Continue safety precautions. Encourage participation in therapeutic groups and activities. Evaluate clinical status r esponse to treatment daily basis.
[2020-04-04 12:20] LABS: Basophils % (A) 0 %; Eosinophils % (A) 0 %; HCT 34.1 % (34.0-46.0); HGB 11.2 gm/dL (11.4-16.0); Lymphocytes # (A) 1.6 k/uL (1.0-4.8); Lymphocytes % (A) 30 %; MCHC 32.8 g/dL (31.0-37.0); MCV 91.5 fL (80.0-100.0); Mean Platelet Volume 8.6; Monocytes # (A) 0.3 k/uL (0-1.0); Monocytes % (A) 6 %; Neutrophils # (A) 3.3 k/uL (1.3-7.7); Neutrophils % (A) 63 %; Platelet Count 246 k/uL (150-450); RBC 3.72 m/uL (3.80-5.40); WBC 5.2 k/uL (3.8-10.6)
[2020-04-05] MEDS: LEVOTHYROXINE 75 MCG TAB PO SCH (06:23)
[2020-04-05] MEDS: cloZAPine 100 MG TAB PO SCH ×2 (08:55→20:03)
[2020-04-05] MEDS: VITAMIN E (DL,TOCOPHERYL ACET) 400 UNIT CAP PO SCH (08:55)
[2020-04-05] MEDS: PANTOPRAZOLE 40 MG TABLET PO SCH (08:55)
[2020-04-05] MEDS: CHOLECALCIFEROL 1,000 UNIT TAB PO SCH (08:55)
[2020-04-05] MEDS: MULTIVITAMINS, THERA 1 EACH TAB PO SCH (08:55)
[2020-04-05] MEDS: ASPIRIN 81 MG PO SCH (08:55)
[2020-04-05] MEDS: FOLIC ACID 1 MG TAB PO SCH (08:56)
[2020-04-05] MEDS: THIAMINE 100 MG TAB PO SCH (08:56)
[2020-04-05] MEDS: LOSARTAN 25 MG TAB PO SCH ×2 (08:56→20:02)
[2020-04-05] MEDS: HYDROCHLOROTHIAZIDE 12.5 MG CAP PO SCH (08:56)
--- NOTE | 2020-04-05 13:25 | P.PN ---
Progress Note - Text Progress Note Date: 04/05/20 Clinical Problems: Schizophrenia, poor compliance with psychiatric treatment, hypertension, hypothyroidism, GERD, history of TIA/CVA, vitamin D deficiency Interim history: I reviewed the medical record, interviewed the patient and discussed her treatment and treatment plan during team meeting. She had no specific complaint. She remains concerned about the involuntary hospitalization at talked about speaking with her title attorney, Julia. She's been compliant with medications and has no episodes of behavioral dyscontrol. Ur wbc 04/04/2020 was 5.2 and the absolute neutrophil count was 3.3 Mental status exam: She presented as a casually groomed elderly woman with white hair. She walks slowly with a limp. She made eye contact and appeared to attend to the interview. She had a blunted but bright facial expression. She was not restless or agitated. Her speech was spontaneous, dysarthric and with normal maci and volume. Her affect was blunted but stable and appropriate. She did not express suicidal ideation or wishes. She did not express clear ideas reference or paranoid ideation. Her thinking was concrete and associations were not fully organized goal directed. She did not appear to be responding to internal stimuli. Assessment: She is sedated from the current dose of clozapine supporting her sister opinion that she was not compliant with the medication. Plan: Continue inpatient treatment due to the severity of her psychotic symptoms. Increase clozapine to 100 mg by mouth twice a day, obtain CBC with differential. We may need to transition to a long-acting injectable medication she continues to refuse the oral dose. Continue safety precautions. Encourage participation in therapeutic groups and activities. Evaluate clinical status response to treatment daily basis.
[2020-04-06] MEDS: LEVOTHYROXINE 75 MCG TAB PO SCH (06:07)
[2020-04-06] MEDS: CHOLECALCIFEROL 1,000 UNIT TAB PO SCH (09:05)
[2020-04-06] MEDS: cloZAPine 100 MG TAB PO SCH ×2 (09:05→20:54)
[2020-04-06] MEDS: ASPIRIN 81 MG PO SCH (09:05)
[2020-04-06] MEDS: PANTOPRAZOLE 40 MG TABLET PO SCH (09:05)
[2020-04-06] MEDS: HYDROCHLOROTHIAZIDE 12.5 MG CAP PO SCH (09:05)
[2020-04-06] MEDS: FOLIC ACID 1 MG TAB PO SCH (09:05)
[2020-04-06] MEDS: LOSARTAN 25 MG TAB PO SCH ×2 (09:05→20:54)
[2020-04-06] MEDS: THIAMINE 100 MG TAB PO SCH (09:06)
[2020-04-06] MEDS: MULTIVITAMINS, THERA 1 EACH TAB PO SCH (09:06)
[2020-04-06] MEDS: VITAMIN E (DL,TOCOPHERYL ACET) 400 UNIT CAP PO SCH (09:06)
--- NOTE | 2020-04-06 11:47 | P.PN ---
Progress Note - Text Progress Note Date: 04/06/20 Clinical Problems: Schizophrenia, poor compliance with psychiatric treatment, hypertension, hypothyroidism, GERD, history of TIA/CVA, vitamin D deficiency Interim history: I reviewed the medical record, interviewed the patient and discussed her treatment and treatment plan during team meeting. She talked about the difficulty she had with the restrictions at her apartment complex due to the pandemic. The community meeting room was close, [employer] was closed, [employer] was closed and the resident's were not allowed to concentrate in the hallways. She alleged that if a plant maintenance manager from more than 2 people conversing in the hallways than they would receive a "police violation". She complained that she could do is watch TV, clean the apartment, picking tech her mail and take the trash. Mental status exam: She presented as a casually groomed elderly woman with white hair. She walks slowly with a limp. She made eye contact and appeared to attend to the interview. She had a blunted but bright facial expression. She was not restless or agitated. Her speech was fast and slightly dysarthric but with normal maci and volume. Her affect was blunted but stable and appropriate. She did not express suicidal ideation or wishes. She did not express clear ideas reference or paranoid ideation. Her thinking was concrete and associations were not fully organized goal directed. She did not appear to be responding to internal stimuli. Assessment: She She is chronically and persistently mentally ill, compliant with medications and improve from admission. Plan: Continue inpatient treatment due to the severity of her psychotic symptoms. Continue clozapine to 100 mg by mouth twice a day, obtain CBC with differential. Continue safety precautions. Encourage participation in therapeutic groups and activities. Evaluate clinical status response to treatment daily basis.
[2020-04-06 12:10] VITALS: BMI 35.1
[2020-04-07] MEDS: LEVOTHYROXINE 75 MCG TAB PO SCH (08:47)
[2020-04-07] MEDS: PANTOPRAZOLE 40 MG TABLET PO SCH (08:47)
[2020-04-07] MEDS: HYDROCHLOROTHIAZIDE 12.5 MG CAP PO SCH (08:48)
[2020-04-07] MEDS: CHOLECALCIFEROL 1,000 UNIT TAB PO SCH (08:48)
[2020-04-07] MEDS: cloZAPine 100 MG TAB PO SCH ×2 (08:48→20:23)
[2020-04-07] MEDS: LOSARTAN 25 MG TAB PO SCH ×2 (08:48→20:23)
[2020-04-07] MEDS: FOLIC ACID 1 MG TAB PO SCH (08:48)
[2020-04-07] MEDS: ASPIRIN 81 MG PO SCH (08:48)
[2020-04-07] MEDS: THIAMINE 100 MG TAB PO SCH (08:49)
[2020-04-07] MEDS: MULTIVITAMINS, THERA 1 EACH TAB PO SCH (08:49)
[2020-04-07] MEDS: LORazepam 1 MG TAB PO PRN (14:23)
--- NOTE | 2020-04-07 15:53 | P.PN ---
Progress Note - Text Progress Note Date: 04/07/20 Interval history: Patient seen in [facility] today. She reports that her mood is angry related to being in the hospital. She seems to be compliant with her psychotropic medications. She does not verbalize any adverse side effects. She was found in the group room with there was an activity game going on. Mental status exam: She was alert and cooperative with the interview. She describes her mood as "angry." She does not verbalize any thoughts of harm to self or others. She spells many words during the session. She does not display any significant degree of agitation during the session. She picks up a pamphlet that she says she wants which ends up on the floor. Plan: Patient be maintained on current psychotropic medication regimen. We'll continue to monitor for any medication side effects and monitor her ongoing response to treatment.
[2020-04-08] MEDS: LEVOTHYROXINE 75 MCG TAB PO SCH (06:07)
[2020-04-08] MEDS: CHOLECALCIFEROL 1,000 UNIT TAB PO SCH (09:56)
[2020-04-08] MEDS: cloZAPine 100 MG TAB PO SCH ×2 (09:56→20:51)
[2020-04-08] MEDS: PANTOPRAZOLE 40 MG TABLET PO SCH (09:56)
[2020-04-08] MEDS: FOLIC ACID 1 MG TAB PO SCH (09:56)
[2020-04-08] MEDS: ASPIRIN 81 MG PO SCH (09:56)
[2020-04-08] MEDS: MULTIVITAMINS, THERA 1 EACH TAB PO SCH (09:57)
[2020-04-08] MEDS: THIAMINE 100 MG TAB PO SCH (09:58)
[2020-04-08] MEDS: VITAMIN E (DL,TOCOPHERYL ACET) 400 UNIT CAP PO SCH (09:58)
[2020-04-08] MEDS: HYDROCHLOROTHIAZIDE 12.5 MG CAP PO SCH (10:00)
[2020-04-08] MEDS: LOSARTAN 25 MG TAB PO SCH ×2 (10:01→20:51)
--- NOTE | 2020-04-08 12:19 | P.PN ---
Progress Note - Text Progress Note Date: 04/08/20 Interval history: Patient is seen in cross coverage again today. She is found in her room lying in bed. She does not wish to meeting with me today. Mental status exam: She is found in her room lying in bed. She is not agreeable to meet with me today. Plan: Patient will be maintained on current psychotropic medication regimen. Continue to monitor for any medication side effects and monitor her ongoing response to treatment.
[2020-04-09] MEDS: LEVOTHYROXINE 75 MCG TAB PO SCH (05:51)
[2020-04-09] MEDS: cloZAPine 100 MG TAB PO SCH ×2 (09:03→20:40)
[2020-04-09] MEDS: ASPIRIN 81 MG PO SCH (09:03)
[2020-04-09] MEDS: FOLIC ACID 1 MG TAB PO SCH (09:03)
[2020-04-09] MEDS: CHOLECALCIFEROL 1,000 UNIT TAB PO SCH (09:03)
[2020-04-09] MEDS: MULTIVITAMINS, THERA 1 EACH TAB PO SCH (09:03)
[2020-04-09] MEDS: PANTOPRAZOLE 40 MG TABLET PO SCH (09:03)
[2020-04-09] MEDS: THIAMINE 100 MG TAB PO SCH (09:04)
[2020-04-09] MEDS: VITAMIN E (DL,TOCOPHERYL ACET) 400 UNIT CAP PO SCH (09:04)
[2020-04-09] MEDS: HYDROCHLOROTHIAZIDE 12.5 MG CAP PO SCH (09:04)
[2020-04-09] MEDS: LOSARTAN 25 MG TAB PO SCH ×2 (09:04→20:40)
--- NOTE | 2020-04-09 12:10 | P.PN ---
Progress Note - Text Progress Note Date: 04/09/20 Clinical Problems: Schizophrenia, poor compliance with psychiatric treatment, hypertension, hypothyroidism, GERD, history of TIA/CVA, vitamin D deficiency Interim history: I reviewed the medical record, interviewed the patient and discussed her treatment and treatment plan during team meeting. Her only complaint was increased swelling in her legs. She is wearing a hospital gown and wrapped around her left ankle for the "treatment" of the swelling. Mental status exam: She presented as a casually groomed elderly woman with white hair. She walks slowly with a limp. She made eye contact and appeared to attend to the interview. She had a bright facial expression. She was not restless or agitated. Her speech was organized with normal rate, rhythm and volume.. Her affect was blunted but stable and appropriate. She did not express suicidal ideation or wishes. She did not express clear ideas reference or paranoid ideation. Her thinking was concrete and associations were organized and goal directed. She did not appear to be responding to internal stimuli. Assessment: She is chronically and persistently mentally ill, compliant with medications and much improve from admission. Plan: Continue inpatient treatment due to the severity of her psychotic symptoms. Consult medicine about the complaint of increased pedal edema. Continue clozapine to 100 mg by mouth twice a day, obtain CBC with differential. Continue safety precautions. Encourage participation in therapeutic groups and activities. Evaluate clinical status response to treatment daily basis.
--- NOTE | 2020-04-09 18:22 | P.PN ---
Subjective Progress Note Date: 04/09/20 Principal diagnosis: Scizophrenia Ms. Vyas is a 65-year-old female with a past medical history of CVA/TIA, GERD, hypertension, osteoarthritis, rheumatoid arthritis, hypothyroidism who is currently in the psychiatric unit being treated for seizure ischemia. We have been asked to see the patient for increased swelling of both her lower extremities. Patient states that she has chronic varicose veins and bilateral lower extremity swelling. She states that Dr. Arriaza has recommended her to take Lasix 20 mg as needed for the swelling. She mentions that the swelling is more when she stands and during the morning time it is less compared to evenings.On review of system patient denies having any chest pain or difficulty in breathing. No cough. Patient denies having any pain in her calf. Denies having any palpitations. Except for increased swelling in both extremities left more than right she denies having any other complaints. She mentions that her left lower extremity is always more swollen than the right extremity.On reviewing the patient's vitals temperature is 97.5 heart rate around 70s to 80s blood pressure within normal limits saturating at 98% on room air. Her last labs done on showed hemoglobin 11.2. Objective - Vital Signs Vital signs: Vital Signs Temp 97.5 F L 04/09/20 05:55 Pulse 88 04/09/20 09:01 Resp 16 04/09/20 05:55 BP 94/52 04/09/20 09:01 Pulse Ox 98 04/08/20 19:07 - Exam Physical examination General examination: No acute distress, comfortably speaking HEENT; no pallor. No icterus Neck; no JVD no thyromegaly Cardiovascular: S1-S2 heard. No additional sounds Respiratory: Bilateral breath sounds are positive. No wheeze or crackles. Extremities: Bilateral pitting edema on both sides left more than right. No calf tenderness. Varicose veins that are palpable present in both extremities. Good capillary refill. OFFBEARER: No focal deficits - Labs CBC & Chem 7: 04/04/20 12:04 03/29/20 14:14 Assessment and Plan Assessment: ASSESSMENT/PLAN Bilateral lower extremity swelling -possible related to her chronic venous insufficiency due to varicose veins. Lasix 20 mg p.o. advised compression stockings up to thigh-high. Elevation of feet at night. The recommendations were conveyed to nursing staff. Schizophrenia-management as per primary team Hypertension -blood pressure slightly on the lower side, be cautious when she receives Lasix as it may drop her blood pressure. Please call us back with any other concerns, will follow the patient on as- needed basis.
[2020-04-10] MEDS: LEVOTHYROXINE 75 MCG TAB PO SCH (06:51)
[2020-04-10] MEDS: FOLIC ACID 1 MG TAB PO SCH (08:26)
[2020-04-10] MEDS: VITAMIN E (DL,TOCOPHERYL ACET) 400 UNIT CAP PO SCH (08:26)
[2020-04-10] MEDS: THIAMINE 100 MG TAB PO SCH (08:26)
[2020-04-10] MEDS: ASPIRIN 81 MG PO SCH (08:27)
[2020-04-10] MEDS: PANTOPRAZOLE 40 MG TABLET PO SCH (08:27)
[2020-04-10] MEDS: HYDROCHLOROTHIAZIDE 12.5 MG CAP PO SCH (08:28)
[2020-04-10] MEDS: CHOLECALCIFEROL 1,000 UNIT TAB PO SCH (08:28)
[2020-04-10] MEDS: LOSARTAN 25 MG TAB PO SCH ×2 (08:28→21:38)
[2020-04-10] MEDS: MULTIVITAMINS, THERA 1 EACH TAB PO SCH (08:29)
[2020-04-10] MEDS: cloZAPine 100 MG TAB PO SCH ×2 (08:51→21:38)
--- NOTE | 2020-04-10 12:55 | P.PN ---
Progress Note - Text Progress Note Date: 04/10/20 Clinical Problems: Schizophrenia, poor compliance with psychiatric treatment, hypertension, hypothyroidism, GERD, history of TIA/CVA, vitamin D deficiency Interim history: I reviewed the medical record, interviewed the patient and discussed her treatment and treatment plan during team meeting. Medicine consult appreciated. She appreciated received a water pill and the compression stockings. She stated that Dr. Echeverria prescribed to use of Lasix when necessary has not patient. She is active in therapeutic groups and activities. We talked about discharge and discharge planning. She agreed to sign a release of information for the social worker psychiatric to speak with her brother. Mental status exam: She presented as a casually groomed elderly woman with white hair. She walks slowly with a limp. She made eye contact and appeared to attend to the interview. She had a bright facial expression. She was not restless or agitated. Her speech was organized with normal rate, rhythm and volume.. Her affect was blunted but stable and appropriate. She did not express suicidal ideation or wishes. She did not express clear ideas reference or paranoid ideation. Her thinking was concrete and associations were organized and goal directed. She did not appear to be responding to internal stimuli. Assessment: She is chronically and persistently mentally ill, compliant with medications and much improve from admission. Plan: Continue inpatient treatment due to the severity of her psychotic symptoms. Continue with Lasix and compression stockings as ordered by the medical physics professor. Continue clozapine to 100 mg by mouth twice a day, obtain CBC with differential. Continue safety precautions. Encourage participation in therapeutic groups and activities. Evaluate clinical status response to treatment daily basis.
[2020-04-11] MEDS: LEVOTHYROXINE 75 MCG TAB PO SCH (06:50)
[2020-04-11 09:03] LABS: Basophils % (A) 0 %; Eosinophils % (A) 0 %; HCT 35.5 % (34.0-46.0); Hypochromasia Slight; Lymphocytes # (A) 1.8 k/uL (1.0-4.8); Lymphocytes % (A) 25 %; MCH 28.5 pg (25.0-35.0); MCHC 30.9 g/dL (31.0-37.0); MCV 92.2 fL (80.0-100.0); Mean Platelet Volume 8.5; Monocytes # (A) 0.4 k/uL (0-1.0); Monocytes % (A) 5 %; Neutrophils # (A) 4.9 k/uL (1.3-7.7); Neutrophils % (A) 68 %; Platelet Count 255 k/uL (150-450); RBC 3.85 m/uL (3.80-5.40); WBC 7.2 k/uL (3.8-10.6)
[2020-04-11] MEDS: HYDROCHLOROTHIAZIDE 12.5 MG CAP PO SCH (09:22)
[2020-04-11] MEDS: CHOLECALCIFEROL 1,000 UNIT TAB PO SCH (09:22)
[2020-04-11] MEDS: FOLIC ACID 1 MG TAB PO SCH (09:22)
[2020-04-11] MEDS: ASPIRIN 81 MG PO SCH (09:22)
[2020-04-11] MEDS: PANTOPRAZOLE 40 MG TABLET PO SCH (09:22)
[2020-04-11] MEDS: LOSARTAN 25 MG TAB PO SCH ×2 (09:22→21:41)
[2020-04-11] MEDS: THIAMINE 100 MG TAB PO SCH (09:23)
[2020-04-11] MEDS: MULTIVITAMINS, THERA 1 EACH TAB PO SCH (09:23)
[2020-04-11] MEDS: cloZAPine 100 MG TAB PO SCH ×2 (09:24→21:41)
--- NOTE | 2020-04-11 13:57 | P.PN ---
Progress Note - Text Progress Note Date: 04/11/20 Clinical Problems: Schizophrenia, poor compliance with psychiatric treatment, hypertension, hypothyroidism, GERD, history of TIA/CVA, vitamin D deficiency Interim history: I reviewed the medical record, interviewed the patient and discussed her treatment and treatment plan during team meeting. She had the probate hearing this morning. Her inform the court that since admission brothers found 2 bottles of an use clozapine in her apartment supporting her belief that she had not been compliant with the medication. During her sister's testimony she became acutely distressed and accused her sister of "lying". Prior to the probate hearing she was pleasant and denied problems or concerns. She has been compliant with prescribed medications. Mental status exam: She presented as a casually groomed elderly woman with white hair. She walks slowly. She made eye contact and appeared to attend to the interview. She had a bright facial expression. She was not restless or agitated. Her speech was organized with normal rate, rhythm and volume.. Her affect was blunted but stable and appropriate. She did not express suicidal ideation or wishes. She did not express clear ideas reference or paranoid ideation. Her thinking was concrete and associations were organized and goal di rected. She did not appear to be responding to internal stimuli. Assessment: She is chronically and persistently mentally ill, compliant with medications and much improve from admission. Plan: Continue inpatient treatment plan for discharge on 04/12/2020. Continue with Lasix and compression stockings as ordered by the medical territory manager. Continue clozapine to 100 mg by mouth twice a day, obtain CBC with differential. Continue safety precautions. Encourage participation in therapeutic groups and activities. Evaluate clinical status response to treatment daily basis.
[2020-04-12] MEDS: ACETAMINOPHEN TAB 325 MG TAB PO PRN (04:13)
[2020-04-12 05:31] VITALS: BP 114/61; PULSE 79; RESP 17; TEMP 98.5
[2020-04-12] MEDS: LEVOTHYROXINE 75 MCG TAB PO SCH (06:42)
[2020-04-12] MEDS: ASPIRIN 81 MG PO SCH (08:29)
[2020-04-12] MEDS: CHOLECALCIFEROL 1,000 UNIT TAB PO SCH (08:29)
[2020-04-12] MEDS: FOLIC ACID 1 MG TAB PO SCH (08:29)
[2020-04-12] MEDS: cloZAPine 100 MG TAB PO SCH (08:29)
[2020-04-12] MEDS: PANTOPRAZOLE 40 MG TABLET PO SCH (08:29)
[2020-04-12] MEDS: MULTIVITAMINS, THERA 1 EACH TAB PO SCH (08:30)
[2020-04-12] MEDS: THIAMINE 100 MG TAB PO SCH (08:30)
[2020-04-12] MEDS: LOSARTAN 25 MG TAB PO SCH (08:30)
[2020-04-12] MEDS: HYDROCHLOROTHIAZIDE 12.5 MG CAP PO SCH (08:30)
[2020-04-12] MEDS: VITAMIN E (DL,TOCOPHERYL ACET) 400 UNIT CAP PO SCH (08:30)
--- NOTE | 2020-04-12 15:11 | P.DS ---
Providers Date of admission: 03/29/20 19:58 Attending physician: Ted Yousif MD Consults: 03/29/20 20:39 Consult Physician Routine Consulting Provider: Gale Joshi Consult Reason/Comments: H & P and medical care Do you want consulting provider notified?: Yes 04/09/20 09:59 Consult Physician Routine Consulting Provider: Gale Joshi Consult Reason/Comments: increased pedal edema Do you want consulting provider notified?: Yes Primary care physician: Jacki Romero Charbal - Discharge Diagnosis(es) (1) Schizophrenia in partial remission with history of multiple episodes Status: Chronic Priority: High (2) Poor compliance with medication Status: Resolved Priority: High (3) Hypertension Status: Chronic Priority: Low (4) Hypothyroidism Status: Chronic Priority: Low (5) GERD (gastroesophageal reflux disease) Status: Chronic Priority: Low (6) Vitamin D deficiency Status: Chronic Priority: Low (7) Chronic venous insufficiency of lower extremity Status: Acute Priority: Medium Hospital Course: HISTORY: She is a 65-year-old single female who has history of family severe and persistent mental illness. She presented to the unit involuntarily. Her sister, Gena, completed the petition for hospitalization that read "runs away, paranoid, manic, irritable, psychotic and roaming the highways." Mary was unable to provide a coherent history. Her speech was disorganized and at times incoherent. I could not understand her answers to questions. At times she appeared to be talking about past experiences of past events. I spoke to her sister Catrachita. Gena complained of September 20summer where we had a "breakdown". Last year she became unwell when she developed a UTI. Gena emphasized that usually Mary talks slowly and deliberately. She questioned whether Mary has been compliant with her medications. She noticed a change beginning about 3 weeks ago. Mary became more irritable and her speech became fast and disorganized. Gena became concerned when she spoke to her yesterday. Mary speech was incoherent and she was talking "nonstop". Gena is concerned about her safety because 3 or 4 days ago she impulsively left the apartment and took a "long walk". "Someone saw her and called the police." She had $600 on her person. She was held that "the [facility]" overnight. She was first diagnosed with schizophrenia when she was 17 years old. She is had multiple psychiatric hospitalizations including [facility] but according to her sister has done fairly well over the last 10 years. She been treated with clozapine since 1991 and currently is prescribed 100 mg in the morning and 50 mg at bedtime. HOSPITAL COURSE: We admitted her to the psychiatric unit involuntarily under the care of this sports book writer. We provided a comprehensive biopsychosocial assessment. The rewards consultant teacher theater arts completed initial physical exam and medical history and diagnosed hypertension, hypothyroidism, GERD, history of TIA/CVA and vitamin D deficiency. The rewards consultant recommended continue HydroDIURIL 12.5 mg daily with Lasix 20 mg daily when when necessary, losartan 25 mg twice a day, levothyroxine 75 g daily, Protonix 40 mg daily, aspirin bow strength daily and vitamin D 3000 units daily. We restarted clozapine and gradually titrated the dose to 100 mg by mouth twice a day. We also also continued her outpatient dose of sertraline 100 mg at bedtime. She monitor her WBC and absolute neutrophil count weekly. After she was initially agitated and markedly disorganized. As we increased clozapine the agitation, pressured speech, thought disorganization and paranoia gradually diminished. She would not agree to deferred the probate hearing and following the probate hearing received a 30/ day combined treatment order. She participated in therapeutic groups and activities and posed no management problem. Time of discharge she presented as a casually groomed pale appearing elderly woman who was pleasant on approach. She made eye contact and attended to catch she had bipedal edema but no prominent physical abnormalities. She had a blunted facial expression. She was not restless or agitated. Her speech was spontaneous with normal rate and rhythm. Her affect was stable and appropriate. She denied suicidal ideation, wishes homicidal ideation. She did not express feelings of hopelessness, helplessness or worthlessness. She did not express ideas reference, paranoid ideation or delusions. Her thinking was concrete but his associations were coherent, logical and goal directed. She denied hallucinations did not appear to responding to internal stimuli. DISPOSITION: She would live with her sister temporarily and then return to her apartment. Both her sister and her brother we'll continue providing her supports to maintain independence. Should continue with clozapine 100 mg twice a day and Zoloft 100 mg daily. She will [facility]. Patient Condition at Discharge: Stable Plan - Discharge Summary New Discharge Prescriptions: New cloZAPine [Clozaril] 100 mg PO HS #30 tab Continue Omeprazole 20 mg PO DAILY Aspirin [Adult Low Dose Aspirin EC] 81 mg PO DAILY Furosemide [Lasix] 20 mg PO DAILY PRN PRN Reason: Edema Losartan [Cozaar] 25 mg PO BID Hydrochlorothiazide 12.5 mg PO DAILY cloZAPine [Clozaril] 100 mg PO DAILY #30 tab Sertraline [Zoloft] 100 mg PO HS #30 tab Discontinued cloZAPine [Clozaril] 50 mg PO HS No Action Cholecalciferol [Vitamin D3 (25 Mcg = 1000 Iu)] 1,000 unit PO DAILY Folic Acid 1 mg PO DAILY #30 tablet Multivitamins, Thera [Multivitamin] 1 tab PO DAILY #30 tablet Thiamine [Vitamin B-1] 100 mg PO DAILY #30 tablet Levothyroxine Sodium [Synthroid] 75 mcg PO HS Vitamin E 400 unit PO SUMOTUTHFR Discharge Medication List Aspirin [Adult Low Dose Aspirin EC] 81 mg PO DAILY 07/21/18 [History] Furosemide [Lasix] 20 mg PO DAILY PRN 07/21/18 [History] Omeprazole 20 mg PO DAILY 07/21/18 [History] Cholecalciferol [Vitamin D3 (25 Mcg = 1000 Iu)] 1,000 unit PO DAILY 04/07/19 [History] Folic Acid 1 mg PO DAILY #30 tablet 04/13/19 [Rx] Multivitamins, Thera [Multivitamin] 1 tab PO DAILY #30 tablet 04/13/19 [Rx] Thiamine [Vitamin B-1] 100 mg PO DAILY #30 tablet 04/13/19 [Rx] Hydrochlorothiazide 12.5 mg PO DAILY 03/29/20 [History] Levothyroxine Sodium [Synthroid] 75 mcg PO HS 03/29/20 [History] Losartan [Cozaar] 25 mg PO BID 03/29/20 [History] Vitamin E 400 unit PO SUMOTUTHFR 03/29/20 [History] Sertraline [Zoloft] 100 mg PO HS #30 tab 04/12/20 [Rx] cloZAPine [Clozaril] 100 mg PO DAILY #30 tab 04/12/20 [Rx] cloZAPine [Clozaril] 100 mg PO HS #30 tab 04/12/20 [Rx] Follow up Appointment(s)/Referral(s): [facility] [Outside] - 04/16/20 1:00 pm (04-16-20 @ 1:00 with Sumi Olivera by phone. Waiting for a doctors appt. May not get on until this afternoon.) Sonia Echeverria MD [Primary Care Provider] - 1-2 days Patient Instructions/Handouts: Schizophrenia (DC), Suicide Prevention (DC) Activity/Diet/Wound Care/Special Instructions: Activity and diet as tolerated. Avoid the use of street drugs and alcohol. Take all medications as prescribed. When you are in need of refills on your medications please contact your medical provider and/or outpatient psychiatrist to have this done. Please go to scheduled outpatient appointment for aftercare treatment. If symptoms return or become worse, call the crisis line at and/or go to the nearest emergency room for evaluation. Discharge Disposition: HOME SELF-CARE
== END 2020-04-12 14:21 | disposition home or self-care (01) | DRG 885 ==
LOC: SUPCPDRO 13:13 → EC 13:13 → 3MHU 19:58
PROVIDERS: ADMIT Psychiatry & Neurology Psychiatry; ATTEND Psychiatry & Neurology Psychiatry
DX: F20.9 Schizophrenia, unspecified (principal); E03.9 Hypothyroidism, unspecified; E55.9 Vitamin D deficiency, unspecified; I10 Essential (primary) hypertension; I83.90 Asymptomatic varicose veins of unspecified lower extremity; I87.2 Venous insufficiency (chronic) (peripheral); K21.9 Gastro-esophageal reflux disease without esophagitis; M06.9 Rheumatoid arthritis, unspecified; Z87.440 Personal history of urinary (tract) infections; Z79.82 Long term (current) use of aspirin; Z79.890 Hormone replacement therapy; Z79.899 Other long term (current) drug therapy; Z82.49 Family history of ischemic heart disease and other diseases of the circulatory system; Z82.62 Family history of osteoporosis; Z86.73 Personal history of transient ischemic attack (TIA), and cerebral infarction without residual deficits; Z81.8 Family history of other mental and behavioral disorders; Z80.3 Family history of malignant neoplasm of breast; Z87.891 Personal history of nicotine dependence; Z90.710 Acquired absence of both cervix and uterus; Z91.14 Patient's other noncompliance with medication regimen; Z88.6 Allergy status to analgesic agent; Z88.0 Allergy status to penicillin
CPT/HCPCS: 36415; 80053; 80061; 80159; 80306; 80320; 81003; 82075; 83036; 84443; 85025; 99285

== ENCOUNTER 2020-05-06 09:23 | Emergency (ER) | payer MEDICARE, OTHER ==
[2020-05-06 09:30] VITALS: RESP 18; TEMP 97.9
[2020-05-06] MEDS ORDERED: SODIUM CHLORIDE 0.9% 500 ML 500 ML IV STA (09:41)
--- NOTE | 2020-05-06 09:53 | ED ---
Weakness HPI - General Chief complaint: Weakness Stated complaint: weakness Time Seen by Provider: 05/06/20 09:36 Source: patient, RN notes reviewed Mode of arrival: wheelchair Limitations: no limitations - History of Present Illness Initial comments: This a 65-year-old female presents emergency department to complaint of generalized weakness. Patient states that increasing fatigue, weakness over the last several weeks to months. Patient states that her medications have been recently change in which her for psychiatric treatment. Patient states that she just doesn't have motor patient denies complaints or homicidal. Patient states that she does have left foot pain denies any injury. Patient states his asthma ongoing also. Denies any leg swelling or discoloration on her varicose pains. Patient denies chest pain shortness breath headache, dizziness, back pain, dysuria, hematuria. - Related Data Home Medications Medication Instructions Recorded Confirmed Aspirin [Adult Low Dose Aspirin EC] 81 mg PO DAILY 07/21/18 05/06/20 Furosemide [Lasix] 20 mg PO DAILY PRN 07/21/18 05/06/20 Omeprazole 20 mg PO DAILY 07/21/18 05/06/20 Cholecalciferol [Vitamin D3 (25 5,000 unit PO DAILY 04/07/19 05/06/20 Mcg = 1000 Iu)] Hydrochlorothiazide 12.5 mg PO DAILY 03/29/20 05/06/20 Levothyroxine Sodium [Synthroid] 75 mcg PO DAILY 03/29/20 05/06/20 Losartan [Cozaar] 25 mg PO BID 03/29/20 05/06/20 Vitamin E 400 unit PO SUMOTUTHFR 03/29/20 05/06/20 Cranberry Concentrate 30,000mg 30,000 mg PO DAILY 05/06/20 05/06/20 Ginkgo Biloba 120mg 120 mg PO HS 05/06/20 05/06/20 Sertraline [Zoloft] 100 mg PO DAILY 05/06/20 05/06/20 cloZAPine [Clozaril] 100 mg PO BID 05/06/20 05/06/20 Previous Rx's Medication Instructions Recorded Folic Acid 1 mg PO DAILY #30 tablet 04/13/19 Multivitamins, Thera [Multivitamin] 1 tab PO DAILY #30 tablet 04/13/19 Thiamine [Vitamin B-1] 100 mg PO DAILY #30 tablet 04/13/19 Allergies Allergy/AdvReac Type Severity Reaction Status Date / Time aspirin Allergy Unknown Verified 05/06/20 11:06 Penicillins Allergy Unknown Verified 05/06/20 11:06 Review of Systems ROS Statement: Those systems with pertinent positive or pertinent negative responses have been documented in the HPI. ROS Other: All systems not noted in ROS Statement are negative. Past Medical History Past Medical History: CVA/TIA, GERD/Reflux, Hypertension, Osteoarthritis (OA), Thyroid Disorder Additional Past Medical History / Comment(s): Schizophrenia. 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 History of Any Multi-Drug Resistant Organisms: None Reported Past Surgical History: Hernia Repair, Hysterectomy, Tonsillectomy Past Psychological History: Schizophrenia Past Alcohol Use History: None Reported Past Drug Use History: None Reported - Past Family History Mother Family Medical History: Cancer Additional Family Medical History / Comment(s): Osteoporosis Sister(s) Family Medical History: Cancer Additional Family Medical History / Comment(s): 2 of 4 with breast Father Family Medical History: Myocardial Infarction ([place]) Additional Family Medical History / Comment(s): Paternal aunt and cousin had schizophrenia General Exam Limitations: no limitations General appearance: alert, in no apparent distress Head exam: Present: atraumatic, normocephalic, normal inspection Eye exam: Present: normal appearance, PERRL, EOMI. Absent: scleral icterus, conjunctival injection, periorbital swelling ENT exam: Present: normal exam, normal oropharynx, mucous membranes moist, TM's normal bilaterally Neck exam: Present: normal inspection, full ROM. Absent: tenderness, meningismus, lymphadenopathy Respiratory exam: Present: normal lung sounds bilaterally. Absent: respiratory distress, wheezes, rales, rhonchi, stridor Cardiovascular Exam: Present: regular rate, normal rhythm, normal heart sounds. Absent: systolic murmur, diastolic murmur, rubs, gallop, clicks GI/Abdominal exam: Present: soft, normal bowel sounds. Absent: distended, tenderness, guarding, rebound, rigid Extremities exam: Present: other (Pulses of lower extremity equal bilaterally there is moderate foot tenderness no obvious deformityand swelling.) Back exam: Present: full ROM. Absent: tenderness, paraspinal tenderness, vertebral tenderness Neurological exam: Present: alert, oriented X3, CN II-XII intact, reflexes normal. Absent: motor sensory deficit Psychiatric exam: Present: normal affect, normal mood Skin exam: Present: warm, dry, intact, normal color. Absent: rash Course Vital Signs 05/06/20 09:25 Temperature 97.9 F Pulse Rate 75 Respiratory 18 Rate Blood Pressure 122/68 O2 Sat by Pulse 96 Oximetry Medical Decision Making - Medical Decision Making 65-year-old female presented for fatigue, generalized weakness and underlying psychiatric issues. Patient had complete workup with no acute findings. Patient was admitted by EPS as requested by family patient is not suicidal or homicidal. Patient was recommended to contact primary care physician for possible in-home nurse for further assisted living if she cannot manage her symptoms. Patient will be discharged in stable condition. - Lab Data Result diagrams: 05/06/20 09:51 05/06/20 09:51 Lab Results 05/06/20 05/06/20 05/06/20 Range/Units 09:51 09:51 09:51 WBC 7.8 (3.8-10.6) k/uL RBC 4.12 (3.80-5.40) m/uL Hgb 11.7 (11.4-16.0) gm/dL Hct 36.9 (34.0-46.0) % MCV 89.6 (80.0-100.0) fL MCH 28.4 (25.0-35.0) pg MCHC 31.7 (31.0-37.0) g/dL RDW 13.9 (11.5-15.5) % Plt Count 264 (150-450) k/uL Neutrophils % 74 % Lymphocytes % 20 % Monocytes % 5 % Eosinophils % 1 % Basophils % 0 % Neutrophils # 5.8 (1.3-7.7) k/uL Lymphocytes # 1.6 (1.0-4.8) k/uL Monocytes # 0.4 (0-1.0) k/uL Eosinophils # 0.1 (0-0.7) k/uL Basophils # 0.0 (0-0.2) k/uL PT 9.7 (9.0-12.0) sec INR 0.9 (<1.2) APTT 24.3 (22.0-30.0) sec Sodium 139 (137-145) mmol/L Potassium 3.9 (3.5-5.1) mmol/L Chloride 106 (98-107) mmol/L Carbon Dioxide 23 (22-30) mmol/L Anion Gap 10 mmol/L BUN 13 (7-17) mg/dL Creatinine 0.66 (0.52-1.04) mg/dL Est GFR (CKD-EPI)AfAm >90 (>60 ml/min/1.73 sqM) Est GFR (CKD-EPI)NonAf >90 (>60 ml/min/1.73 sqM) Glucose 132 H (74-99) mg/dL Plasma Lactic Acid Herminio (0.7-2.0) mmol/L Calcium 9.0 (8.4-10.2) mg/dL Magnesium 2.1 (1.6-2.3) mg/dL Total Bilirubin 0.6 (0.2-1.3) mg/dL AST 24 (14-36) U/L ALT 18 (4-34) U/L Alkaline Phosphatase 108 (38-126) U/L Creatine Kinase 33 (30-135) U/L Troponin I (0.000-0.034) ng/mL Total Protein 6.7 (6.3-8.2) g/dL Albumin 3.8 (3.5-5.0) g/dL TSH 4.600 (0.465-4.680) mIU/L Urine Color Urine Appearance (Clear) Urine pH (5.0-8.0) Ur Specific [place] (1.001-1.035) Urine Protein (Negative) Urine Glucose (UA) (Negative) Urine Ketones (Negative) Urine Blood (Negative) Urine Nitrite (Negative) Urine Bilirubin (Negative) Urine Urobilinogen (<2.0) mg/dL Ur Leukocyte Esterase (Negative) Urine RBC (0-5) /hpf Urine WBC (0-5) /hpf Ur Squamous Epith Cells (0-4) /hpf Hyaline Casts (0-2) /lpf Urine Mucus (None) /hpf 05/06/20 05/06/20 05/06/20 Range/Units 09:51 09:51 10:48 WBC (3.8-10.6) k/uL RBC (3.80-5.40) m/uL Hgb (11.4-16.0) gm/dL Hct (34.0-46.0) % MCV (80.0-100.0) fL MCH (25.0-35.0) pg MCHC (31.0-37.0) g/dL RDW (11.5-15.5) % Plt Count (150-450) k/uL Neutrophils % % Lymphocytes % % Monocytes % % Eosinophils % % Basophils % % Neutrophils # (1.3-7.7) k/uL Lymphocytes # (1.0-4.8) k/uL Monocytes # (0-1.0) k/uL Eosinophils # (0-0.7) k/uL Basophils # (0-0.2) k/uL PT (9.0-12.0) sec INR (<1.2) APTT (22.0-30.0) sec Sodium (137-145) mmol/L Potassium (3.5-5.1) mmol/L Chloride (98-107) mmol/L Carbon Dioxide (22-30) mmol/L Anion Gap mmol/L BUN (7-17) mg/dL Creatinine (0.52-1.04) mg/dL Est GFR (CKD-EPI)AfAm (>60 ml/min/1.73 sqM) Est GFR (CKD-EPI)NonAf (>60 ml/min/1.73 sqM) Glucose (74-99) mg/dL Plasma Lactic Acid Herminio 1.8 (0.7-2.0) mmol/L Calcium (8.4-10.2) mg/dL Magnesium (1.6-2.3) mg/dL Total Bilirubin (0.2-1.3) mg/dL AST (14-36) U/L ALT (4-34) U/L Alkaline Phosphatase (38-126) U/L Creatine Kinase (30-135) U/L Troponin I <0.012 (0.000-0.034) ng/mL Total Protein (6.3-8.2) g/dL Albumin (3.5-5.0) g/dL TSH (0.465-4.680) mIU/L Urine Color Yellow Urine Appearance Clear (Clear) Urine pH 5.5 (5.0-8.0) Ur Specific [place] 1.013 (1.001-1.035) Urine Protein Negative (Negative) Urine Glucose (UA) Negative (Negative) Urine Ketones Negative (Negative) Urine Blood Negative (Negative) Urine Nitrite Negative (Negative) Urine Bilirubin Negative (Negative) Urine Urobilinogen <2.0 (<2.0) mg/dL Ur Leukocyte Esterase Moderate H (Negative) Urine RBC 1 (0-5) /hpf Urine WBC 18 H (0-5) /hpf Ur Squamous Epith Cells 4 (0-4) /hpf Hyaline Casts 1 (0-2) /lpf Urine Mucus Rare H (None) /hpf Disposition Clinical Impression: Fatigue, History of schizophrenia Disposition: HOME SELF-CARE Condition: Stable Instructions (If sedation given, give patient instructions): Fatigue (ED) Additional Instructions: Please follow up with her primary care physician discuss in home help or possible assisted living. Please return to the Emergency Department if symptoms worsen or any other concerns. Is patient prescribed a controlled substance at d/c from ED?: No Referrals: Sonia Echeverria MD [Primary Care Provider] - 1-2 days Time of Disposition: 13:30
[2020-05-06 10:17] LABS: Basophils % (A) 0 %; Eosinophils # (A) 0.1 k/uL (0-0.7); Eosinophils % (A) 1 %; HCT 36.9 % (34.0-46.0); HGB 11.7 gm/dL (11.4-16.0); Lymphocytes # (A) 1.6 k/uL (1.0-4.8); Lymphocytes % (A) 20 %; MCH 28.4 pg (25.0-35.0); MCHC 31.7 g/dL (31.0-37.0); MCV 89.6 fL (80.0-100.0); Mean Platelet Volume 8.4; Monocytes # (A) 0.4 k/uL (0-1.0); Monocytes % (A) 5 %; Neutrophils # (A) 5.8 k/uL (1.3-7.7); Neutrophils % (A) 74 %; Platelet Count 264 k/uL (150-450); RBC 4.12 m/uL (3.80-5.40); RDW 13.9 % (11.5-15.5); WBC 7.8 k/uL (3.8-10.6)
[2020-05-06 10:27] LABS: ALT 18 U/L (4-34); AST 24 U/L (14-36); African American GFR (CKD) >90 (>60 ml/min/1.73 sqM); Albumin 3.8 g/dL (3.5-5.0); Alkaline Phosphatase 108 U/L (38-126); Anion Gap 10 mmol/L; Blood Urea Nitrogen 13 mg/dL (7-17); Carbon Dioxide 23 mmol/L (22-30); Chloride 106 mmol/L (98-107); Creatine Kinase 33 U/L (30-135); Glucose 132 mg/dL (74-99); Magnesium 2.1 mg/dL (1.6-2.3); Non-African American GFR(CKD) >90 (>60 ml/min/1.73 sqM); Potassium 3.9 mmol/L (3.5-5.1); Sodium 139 mmol/L (137-145); Total Bilirubin 0.6 mg/dL (0.2-1.3); Total Protein 6.7 g/dL (6.3-8.2)
[2020-05-06 10:28] LABS: INR 0.9 (<1.2); Partial Thromboplastin Time 24.3 sec (22.0-30.0); Prothrombin Time 9.7 sec (9.0-12.0)
[2020-05-06 11:03] LABS: Appearance,Urine Clear (Clear); Bilirubin,Urine Negative (Negative); Blood,Urine Negative (Negative); Color,Urine Yellow; Glucose,Urine (UA) Negative (Negative); Hyaline Casts,Urine 1 /lpf (0-2); Ketones,Urine Negative (Negative); Leukocyte Esterase,Urine Moderate (Negative); Mucus,Urine Rare /hpf; Nitrite,Urine Negative (Negative); PH, Urine 5.5 (5.0-8.0); Protein,Urine Negative (Negative); RBC,Urine 1 /hpf (0-5); Specific Gravity,Urine 1.013 (1.001-1.035); Squamous Epithelial Cell,Urine 4 /hpf (0-4); Urobilinogen,Urine <2.0 mg/dL (<2.0); WBC,Urine 18 /hpf (0-5)
--- NOTE | 2020-05-06 11:38 | XR ---
EXAMINATION TYPE: XR chest 2V DATE OF EXAM: 05/06/2020 HISTORY: Weakness. REFERENCE: Previous study dated 03/06/2018. FINDINGS: Heart size upper limits of normal. The lungs are clear. Pleural spaces are clear. IMPRESSION: BORDERLINE CARDIOMEGALY.
--- NOTE | 2020-05-06 12:11 | XR ---
EXAMINATION TYPE: XR foot complete LT , 3 VIEWS DATE OF EXAM ORDERED: 05/06/2020 HISTORY: pain. COMPARISON: None. FINDINGS: No fracture, dislocation or bony destructive lesion is seen. There is a prominent plantar calcaneal spur. IMPRESSION: NO ACUTE OSSEOUS LESION.
[2020-05-06 15:33] VITALS: BP 134/85; PULSE 62
== END 2020-05-06 15:33 | disposition home or self-care (01) ==
LOC: EC 09:23
DX: R53.83 Other fatigue (principal); R53.1 Weakness; F20.9 Schizophrenia, unspecified; M19.90 Unspecified osteoarthritis, unspecified site; I10 Essential (primary) hypertension; K21.9 Gastro-esophageal reflux disease without esophagitis; J45.909 Unspecified asthma, uncomplicated; E07.9 Disorder of thyroid, unspecified; Z79.82 Long term (current) use of aspirin; Z79.899 Other long term (current) drug therapy; Z79.890 Hormone replacement therapy; Z88.6 Allergy status to analgesic agent; Z88.0 Allergy status to penicillin; Z86.73 Personal history of transient ischemic attack (TIA), and cerebral infarction without residual deficits
CPT/HCPCS: 36415; 71046; 80053; 81001; 82550; 83605; 83735; 84443; 84484; 85025; 85610; 85730; 87086; 93005; 96360; 96361; 99285

== ENCOUNTER 2020-12-05 12:41 | Inpatient (IN) | payer MEDICARE, MEDICAID ==
--- NOTE | 2020-12-05 13:00 | ED ---
General Adult HPI - General Stated complaint: Mental Health Time Seen by Provider: 12/05/20 12:42 Source: patient, EMS, RN notes reviewed, old records reviewed Mode of arrival: EMS Limitations: altered mental status - History of Present Illness Initial comments: Patient is a pleasantly psychotic 65-year-old female presenting to the emergency department for mental health evaluation. Patient has long-standing history of chronic schizophrenia. Unclear patient has been taking her medications recently. Patient is a very poor historian and rambles about various topics including world war 1 and different patterns of lights. Patient denies suicidal ideation. Limited history. Family reportedly is coming to petition patient. - Related Data Home Medications Medication Instructions Recorded Confirmed Aspirin [Adult Low Dose Aspirin EC] 81 mg PO DAILY 07/21/18 12/05/20 Furosemide [Lasix] 20 mg PO DAILY PRN 07/21/18 12/05/20 Cholecalciferol [Vitamin D3 (25 125 mcg PO DAILY 04/07/19 12/05/20 Mcg = 1000 Iu)] Levothyroxine Sodium [Synthroid] 75 mcg PO DAILY 03/29/20 12/05/20 Vitamin E 400 unit PO SUMOTUTHFR 03/29/20 12/05/20 Cranberry Concentrate 30,000mg 30,000 mg PO DAILY 05/06/20 12/05/20 Ginkgo Biloba 120mg 120 mg PO HS 05/06/20 12/05/20 Sertraline [Zoloft] 100 mg PO HS 05/06/20 12/05/20 cloZAPine [Clozaril] 150 mg PO HS 05/06/20 12/05/20 Chlorpheniramine Maleate 4 mg PO Q4H PRN 12/05/20 12/05/20 [Chlor-Trimeton] Hydrochlorothiazide 12.5mg Tab 12.5 mg PO DAILY 12/05/20 12/05/20 Losartan [Cozaar] 25 mg PO BID 12/05/20 12/05/20 Omeprazole Magnesium [PriLOSEC OTC] 20 mg PO DAILY 12/05/20 12/05/20 Previous Rx's Medication Instructions Recorded Folic Acid 1 mg PO DAILY #30 tablet 04/13/19 Multivitamins, Thera [Multivitamin] 1 tab PO DAILY #30 tablet 04/13/19 Thiamine [Vitamin B-1] 100 mg PO DAILY #30 tablet 04/13/19 Allergies Allergy/AdvReac Type Severity Reaction Status Date / Time aspirin Allergy Unknown Verified 12/05/20 14:10 Penicillins Allergy Unknown Verified 12/05/20 14:10 Review of Systems ROS Statement: Those systems with pertinent positive or pertinent negative responses have been documented in the HPI. ROS Other: All systems not noted in ROS Statement are negative. Limitations: ROS unobtainable due to patients medical condition Past Medical History Past Medical History: CVA/TIA, GERD/Reflux, Hypertension, Osteoarthritis (OA), Thyroid Disorder Additional Past Medical History / Comment(s): Schizophrenia. 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 History of Any Multi-Drug Resistant Organisms: None Reported Past Surgical History: Hernia Repair, Hysterectomy, Tonsillectomy Past Psychological History: Schizophrenia Past Alcohol Use History: None Reported Past Drug Use History: None Reported - Past Family History Mother Family Medical History: Cancer Additional Family Medical History / Comment(s): Osteoporosis Sister(s) Family Medical History: Cancer Additional Family Medical History / Comment(s): 2 of 4 with breast Father Family Medical History: Myocardial Infarction ([place]) Additional Family Medical History / Comment(s): Paternal aunt and cousin had schizophrenia General Exam Limitations: altered mental status General appearance: alert, in no apparent distress Head exam: Present: atraumatic Eye exam: Present: normal appearance ENT exam: Present: normal oropharynx Neck exam: Present: normal inspection Respiratory exam: Present: normal lung sounds bilaterally Cardiovascular Exam: Present: regular rate, normal rhythm GI/Abdominal exam: Present: soft. Absent: tenderness Extremities exam: Present: normal inspection Neurological exam: Present: alert Expanded Focused psych exam: Present: internal stimuli, flight of ideas Skin exam: Present: normal color Course Vital Signs 12/05/20 12:55 Temperature 98.5 F Pulse Rate 99 Respiratory 18 Rate Blood Pressure 121/50 O2 Sat by Pulse 99 Oximetry EKG Findings - EKG Comments: EKG Findings:: Normal sinus rhythm 84. For screening AV block FL of 246. QRS 150. QT 438. QTC 517. Left axis. Right bundle branch block. LVH criteria. No acute ST change. Medical Decision Making - Medical Decision Making Patient reevaluated and resting comfortably in bed. Patient seen by mental health services with plans for admission. Family did come in and complete petition. Positive clinical certificate completed by myself - Lab Data Result diagrams: 12/05/20 13:31 12/05/20 13:31 Lab Results 12/05/20 12/05/20 12/05/20 Range/Units 13:31 13:31 13:31 WBC 7.3 (3.8-10.6) k/uL RBC 3.78 L (3.80-5.40) m/uL Hgb 11.4 (11.4-16.0) gm/dL Hct 34.0 (34.0-46.0) % MCV 89.8 (80.0-100.0) fL MCH 30.1 (25.0-35.0) pg MCHC 33.6 (31.0-37.0) g/dL RDW 13.6 (11.5-15.5) % Plt Count 212 (150-450) k/uL MPV 8.5 Neutrophils % 82 % Lymphocytes % 10 % Monocytes % 7 % Eosinophils % 0 % Basophils % 0 % Neutrophils # 6.0 (1.3-7.7) k/uL Lymphocytes # 0.7 L (1.0-4.8) k/uL Monocytes # 0.5 (0-1.0) k/uL Eosinophils # 0.0 (0-0.7) k/uL Basophils # 0.0 (0-0.2) k/uL Sodium 142 (137-145) mmol/L Potassium 4.2 (3.5-5.1) mmol/L Chloride 106 (98-107) mmol/L Carbon Dioxide 22 (22-30) mmol/L Anion Gap 14 mmol/L BUN 18 H (7-17) mg/dL Creatinine 0.95 (0.52-1.04) mg/dL Est GFR (CKD-EPI)AfAm 73 (>60 ml/min/1.73 sqM) Est GFR (CKD-EPI)NonAf 63 (>60 ml/min/1.73 sqM) Glucose 105 H (74-99) mg/dL Calcium 9.2 (8.4-10.2) mg/dL Urine Color Yellow Urine Appearance Cloudy H (Clear) Urine pH 5.5 (5.0-8.0) Ur Specific [place] 1.013 (1.001-1.035) Urine Protein Trace H (Negative) Urine Glucose (UA) Negative (Negative) Urine Ketones 3+ H (Negative) Urine Blood Trace H (Negative) Urine Nitrite Negative (Negative) Urine Bilirubin Negative (Negative) Urine Urobilinogen <2.0 (<2.0) mg/dL Ur Leukocyte Esterase Large H (Negative) Urine RBC 30 H (0-5) /hpf Urine WBC 22 H (0-5) /hpf Ur Squamous Epith Cells 8 H (0-4) /hpf Amorphous Sediment Rare H (None) /hpf Urine Bacteria Rare H (None) /hpf Hyaline Casts 6 H (0-2) /lpf Urine Mucus Rare H (None) /hpf Serum Alcohol <10 mg/dL Coronavirus (PCR) (Not Detectd) 12/05/20 Range/Units 13:31 WBC (3.8-10.6) k/uL RBC (3.80-5.40) m/uL Hgb (11.4-16.0) gm/dL Hct (34.0-46.0) % MCV (80.0-100.0) fL MCH (25.0-35.0) pg MCHC (31.0-37.0) g/dL RDW (11.5-15.5) % Plt Count (150-450) k/uL MPV Neutrophils % % Lymphocytes % % Monocytes % % Eosinophils % % Basophils % % Neutrophils # (1.3-7.7) k/uL Lymphocytes # (1.0-4.8) k/uL Monocytes # (0-1.0) k/uL Eosinophils # (0-0.7) k/uL Basophils # (0-0.2) k/uL Sodium (137-145) mmol/L Potassium (3.5-5.1) mmol/L Chloride (98-107) mmol/L Carbon Dioxide (22-30) mmol/L Anion Gap mmol/L BUN (7-17) mg/dL Creatinine (0.52-1.04) mg/dL Est GFR (CKD-EPI)AfAm (>60 ml/min/1.73 sqM) Est GFR (CKD-EPI)NonAf (>60 ml/min/1.73 sqM) Glucose (74-99) mg/dL Calcium (8.4-10.2) mg/dL Urine Color Urine Appearance (Clear) Urine pH (5.0-8.0) Ur Specific [place] (1.001-1.035) Urine Protein (Negative) Urine Glucose (UA) (Negative) Urine Ketones (Negative) Urine Blood (Negative) Urine Nitrite (Negative) Urine Bilirubin (Negative) Urine Urobilinogen (<2.0) mg/dL Ur Leukocyte Esterase (Negative) Urine RBC (0-5) /hpf Urine WBC (0-5) /hpf Ur Squamous Epith Cells (0-4) /hpf Amorphous Sediment (None) /hpf Urine Bacteria (None) /hpf Hyaline Casts (0-2) /lpf Urine Mucus (None) /hpf Serum Alcohol mg/dL Coronavirus (PCR) Not Detected (Not Detectd) Disposition Clinical Impression: Psychosis Disposition: TRANSFER TO PSYCH HOSP/UNIT Is patient prescribed a controlled substance at d/c from ED?: No Referrals: Sonia Echeverria MD [Primary Care Provider] - 1-2 days Decision Time: 16:51
[2020-12-05] MEDS ORDERED: LORazepam 2 MG/ML INJ IM STA (13:10)
[2020-12-05 13:53] LABS: Basophils % (A) 0 %; Eosinophils % (A) 0 %; HGB 11.4 gm/dL (11.4-16.0); Lymphocytes # (A) 0.7 k/uL (1.0-4.8); Lymphocytes % (A) 10 %; MCH 30.1 pg (25.0-35.0); MCHC 33.6 g/dL (31.0-37.0); MCV 89.8 fL (80.0-100.0); Mean Platelet Volume 8.5; Monocytes # (A) 0.5 k/uL (0-1.0); Monocytes % (A) 7 %; Neutrophils % (A) 82 %; Platelet Count 212 k/uL (150-450); RBC 3.78 m/uL (3.80-5.40); RDW 13.6 % (11.5-15.5); WBC 7.3 k/uL (3.8-10.6)
[2020-12-05 14:05] LABS: African American GFR (CKD) 73 (>60 ml/min/1.73 sqM); Alcohol <10 mg/dL; Anion Gap 14 mmol/L; Blood Urea Nitrogen 18 mg/dL (7-17); Calcium 9.2 mg/dL (8.4-10.2); Carbon Dioxide 22 mmol/L (22-30); Chloride 106 mmol/L (98-107); Glucose 105 mg/dL (74-99); Non-African American GFR(CKD) 63 (>60 ml/min/1.73 sqM); Potassium 4.2 mmol/L (3.5-5.1); Sodium 142 mmol/L (137-145)
[2020-12-05 14:06] LABS: Amorphous Sediment,Urine Rare /hpf; Appearance,Urine Cloudy (Clear); Bacteria,Urine Rare /hpf; Bilirubin,Urine Negative (Negative); Blood,Urine Trace (Negative); Color,Urine Yellow; Glucose,Urine (UA) Negative (Negative); Hyaline Casts,Urine 6 /lpf (0-2); Ketones,Urine 3+ (Negative); Leukocyte Esterase,Urine Large (Negative); Mucus,Urine Rare /hpf; Nitrite,Urine Negative (Negative); PH, Urine 5.5 (5.0-8.0); Protein,Urine Trace (Negative); RBC,Urine 30 /hpf (0-5); Specific Gravity,Urine 1.013 (1.001-1.035); Squamous Epithelial Cell,Urine 8 /hpf (0-4); Urobilinogen,Urine <2.0 mg/dL (<2.0); WBC,Urine 22 /hpf (0-5)
[2020-12-05] MEDS ORDERED: MAG HYDROX/AL HYDROX/SIMETH 30 ML CUP PO PRN (18:13)
[2020-12-05] MEDS ORDERED: ACETAMINOPHEN TAB 325 MG TAB PO PRN (18:13)
[2020-12-05] MEDS ORDERED: MAGNESIUM HYDROXIDE 2,400 MG/10 ML CUP PO PRN (18:13)
[2020-12-05] MEDS ORDERED: LORazepam 2 MG/ML INJ IM PRN (18:26)
[2020-12-05] MEDS ORDERED: haloperidoL 5 MG TAB PO PRN (18:27)
[2020-12-05] MEDS ORDERED: HALOPERIDOL LACTATE 5 MG/ML 1 ML VIAL IM PRN (18:27)
[2020-12-05] MEDS: SERTRALINE 100 MG TAB PO SCH (20:58)
[2020-12-05] MEDS ORDERED: cloZAPine 100 MG TAB PO SCH (21:00)
[2020-12-06] MEDS: LEVOTHYROXINE 75 MCG TAB PO SCH (06:11)
[2020-12-06 07:19] LABS: Albumin 4.1 g/dL (3.5-5.0); Bilirubin, Delta 0.3 mg/dL (0.0-0.2); Bilirubin,Unconjugated 0.9 mg/dL (0.0-1.1); Total Bilirubin 1.2 mg/dL (0.2-1.3); Total Protein 7.1 g/dL (6.3-8.2)
[2020-12-06] MEDS: MULTIVITAMINS, THERA 1 EACH TAB PO SCH (08:26)
[2020-12-06] MEDS: FOLIC ACID 1 MG TAB PO SCH (08:26)
[2020-12-06] MEDS: THIAMINE 100 MG TAB PO SCH (08:26)
[2020-12-06] MEDS: PANTOPRAZOLE 40 MG TABLET PO SCH (08:27)
--- NOTE | 2020-12-06 11:22 | P.HP ---
Psychiatric H&P - . H&P Date: 12/06/20 History & Physical: Allergies Allergy/AdvReac Type Severity Reaction Status Date / Time aspirin Allergy Unknown Verified 12/05/20 14:10 Penicillins Allergy Unknown Verified 12/05/20 14:10 Vital Signs Temp 97.1 F L 12/06/20 06:19 Pulse 66 12/06/20 06:19 Resp 18 12/06/20 06:19 BP 160/74 12/06/20 06:19 Pulse Ox 99 12/05/20 12:55 Intake & Output 12/05/20 12/06/20 12/06/20 18:59 06:59 18:59 Weight 84.368 kg 84.36 kg Laboratory Last Values WBC 7.3 k/uL (3.8-10.6) 12/05/20 13:31 RBC 3.78 m/uL (3.80-5.40) L 12/05/20 13:31 Hgb 11.4 gm/dL (11.4-16.0) 12/05/20 13:31 Hct 34.0 % (34.0-46.0) 12/05/20 13:31 MCV 89.8 fL (80.0-100.0) 12/05/20 13:31 MCH 30.1 pg (25.0-35.0) 12/05/20 13:31 MCHC 33.6 g/dL (31.0-37.0) 12/05/20 13:31 RDW 13.6 % (11.5-15.5) 12/05/20 13:31 Plt Count 212 k/uL (150-450) 12/05/20 13:31 MPV 8.5 12/05/20 13:31 Neutrophils % 82 % 12/05/20 13:31 Lymphocytes % 10 % 12/05/20 13:31 Monocytes % 7 % 12/05/20 13:31 Eosinophils % 0 % 12/05/20 13:31 Basophils % 0 % 12/05/20 13:31 Neutrophils # 6.0 k/uL (1.3-7.7) 12/05/20 13:31 Lymphocytes # 0.7 k/uL (1.0-4.8) L 12/05/20 13:31 Monocytes # 0.5 k/uL (0-1.0) 12/05/20 13:31 Eosinophils # 0.0 k/uL (0-0.7) 12/05/20 13:31 Basophils # 0.0 k/uL (0-0.2) 12/05/20 13:31 Sodium 142 mmol/L (137-145) 12/05/20 13:31 Potassium 4.2 mmol/L (3.5-5.1) 12/05/20 13:31 Chloride 106 mmol/L (98-107) 12/05/20 13:31 Carbon Dioxide 22 mmol/L (22-30) 12/05/20 13:31 Anion Gap 14 mmol/L 12/05/20 13:31 BUN 18 mg/dL (7-17) H 12/05/20 13:31 Creatinine 0.95 mg/dL (0.52-1.04) 12/05/20 13:31 Est GFR (CKD-EPI)AfAm 73 (>60 ml/min/1.73 sqM) 12/05/20 13:31 Est GFR (CKD-EPI)NonAf 63 (>60 ml/min/1.73 sqM) 12/05/20 13:31 Glucose 105 mg/dL (74-99) H 12/05/20 13:31 Calcium 9.2 mg/dL (8.4-10.2) 12/05/20 13:31 Total Bilirubin 1.2 mg/dL (0.2-1.3) 12/06/20 06:47 Conjugated Bilirubin 0.0 mg/dL (0.0-0.3) 12/06/20 06:47 Unconjugated Bilirubin 0.9 mg/dL (0.0-1.1) 12/06/20 06:47 Delta Bilirubin 0.3 mg/dL (0.0-0.2) H 12/06/20 06:47 AST 45 U/L (14-36) H 12/06/20 06:47 ALT 29 U/L (4-34) 12/06/20 06:47 Alkaline Phosphatase 99 U/L (38-126) 12/06/20 06:47 Total Protein 7.1 g/dL (6.3-8.2) 12/06/20 06:47 Albumin 4.1 g/dL (3.5-5.0) 12/06/20 06:47 Triglycerides 100 mg/dL (<150) 12/06/20 06:47 Cholesterol 233 mg/dL (<200) H 12/06/20 06:47 LDL Cholesterol, Calc 157 mg/dL (0-99) H 12/06/20 06:47 HDL Cholesterol 56 mg/dL (40-60) 12/06/20 06:47 TSH 1.550 mIU/L (0.465-4.680) 12/06/20 06:47 Urine Color Yellow 12/05/20 13:31 Urine Appearance Cloudy (Clear) H 12/05/20 13:31 Urine pH 5.5 (5.0-8.0) 12/05/20 13:31 Ur Specific [place] 1.013 (1.001-1.035) 12/05/20 13:31 Urine Protein Trace (Negative) H 12/05/20 13:31 Urine Glucose (UA) Negative (Negative) 12/05/20 13:31 Urine Ketones 3+ (Negative) H 12/05/20 13:31 Urine Blood Trace (Negative) H 12/05/20 13:31 Urine Nitrite Negative (Negative) 12/05/20 13:31 Urine Bilirubin Negative (Negative) 12/05/20 13:31 Urine Urobilinogen <2.0 mg/dL (<2.0) 12/05/20 13:31 Ur Leukocyte Esterase Large (Negative) H 12/05/20 13:31 Urine RBC 30 /hpf (0-5) H 12/05/20 13:31 Urine WBC 22 /hpf (0-5) H 12/05/20 13:31 Ur Squamous Epith Cells 8 /hpf (0-4) H 12/05/20 13:31 Amorphous Sediment Rare /hpf (None) H 12/05/20 13:31 Urine Bacteria Rare /hpf (None) H 12/05/20 13:31 Hyaline Casts 6 /lpf (0-2) H 12/05/20 13:31 Urine Mucus Rare /hpf (None) H 12/05/20 13:31 Serum Alcohol <10 mg/dL 12/05/20 13:31 Coronavirus (PCR) Not Detected (Not Detectd) 12/05/20 13:31 12/06/20 11:06 IDENTIFYING DATA: Patient is a 65-year-old female, with a chronic history of schizophrenia multiple psychiatric hospitalizations who has a guardian which is her sister. Currently lives alone. HPI: Patient presented to the hospital yesterday for a psychiatric evaluation. According to ER report patient had been unclear about taking her medications or not and had been a poor historian and rambling. Patient's sister/guardian had filed a petition stating the patient had been pulling a fire alarm at her home and also knocking on doors and "talking gibberish" and throwing things at the wall. Patient was admitted involuntarily to the mental health unit for evaluation and treatment. Patient was seen wandering the hallways and speaking to herself responding to internal stimuli. Patient had poor hygiene and grooming. She was directable and agreeable to speak to the play writer in the office. She claims that "everything around me is hostile" and began being fixated on the sharp hostile. She spelled the word "hostile" out several times. She appeared to be fairly confused at times and was a poor historian and did not give good information as to why she was in the hospital. She states that "the payroll and benefits specialist brought me in". She was concrete illogical and loose in associations. She admitted to not taking her medications regularly. She states that she does hear voices however states that they are "hostile ones only". She had poor insight in judgment and poor reality testing. Patient denies any suicidal or homicidal ideations intent or plan. At this time patient denies any visual hallucinations. Patient admits to using no recreational drugs or cigarettes. PAST PSYCHIATRIC HISTORY: Patient has a chronic history of schizophrenia with multiple psychiatric hospitalizations. Patient was apparently diagnosed with schizophrenia at the age of [age] years old. Patient's last psychiatric hospitalization was in March 2020. Patient was previously on Zoloft and clozapine. Patient currently follows up at [facility] for her mental health treatment. Patient denies any history of suicide attempts in the past. PMH: GERD, CVA, hypertension, hypothyroidism ALLERGIES: as per EMR CHEMICAL DEPENDENCY HISTORY: as per HPI FAMILY PSYCHIATRIC/SUBSTANCE USE HISTORY: Apparently there is schizophrenia present on patient's father's side. Patient's mother apparently has OCD. SOCIAL HISTORY: Patient currently lives alone and her sister is her guardian. She denies any legal history. Unable to obtain further social history. MENTAL STATUS EXAM: General Appearance: Patient appears to be confused, stated age is alert, difficult to redirect him responding to internal stimuli. Patient appears to have poor hygiene and grooming. Behavior: Patient is seated without any agitated behavior. Responding to internal stimuli Speech: Patient's speech is concrete, monotone. Mood/Affect: Patient reports their mood is ok, affect is congruent and constricted. Suicidality/Homicidality: Patient denies having any homicidal ideation intent or plan. Denies any suicidal ideations intent or plan Perceptions: Patient denies any visual hallucinations and admits to auditory hallucinations "hostile ones". Though content/process: Loose, disorganized. Illogical. Not endorsing any specific delusions or paranoia. Memory and concentration: AOX2, believes it is 11/30/2020, poor concentration. Cannot spell "WORLD" backwards Judgment and insight: Chronically poor STRENGTHS/WEAKNESSES: strength is that patient is resilient. Weakness is that patient has poor judgment and insight INTELLECT: average IMPRESSIONS: Schizophrenia PLAN: -Patient is admitted under involuntary status to MHU for stabilization of psychiatric symptoms and safety. Patient has not signed adult voluntary form and medication consent and is placed in patient's chart. A second certification was completed and along with petition will be filed for court. -Medications : Will start patient on clozapine 50 mg twice a day for psychosis. We will gradually titrate up as needed/tolerated. Will obtain regular CBCs to monitor. Continue with Zoloft 100 mg daily at bedtime for mood/anxiety. Added melatonin 3 mg daily at bedtime for insomnia. -Ativan and Haldol PRN for agitation/aggression -Patient was informed of the risks, benefits and side effects of the medication and patient verbally consented to taking the medications. -Internal Medicine consult to perform medical evaluation and physical. -NRT -not needed as patient does not smoke -SW on board for discharge planning. Encourage patient to participate in groups to work on coping skills. Will await deferral and court date.
[2020-12-06] MEDS: SENNOSIDES-DOCUSATE SODIUM 1 EACH TAB PO SCH ×2 (13:02→21:19)
--- NOTE | 2020-12-06 13:59 | P.CONS ---
History of Present Illness - History of Present Illness 65-year-old female was admitted the acute psychosis and the patient is a poor historian because of her active psychosis. I'm much of the history from the patient. Patient denied any fever chills nausea vomiting dysuria diarrhea, cough. Patient is diagnosed with schizophrenia Review of Systems REVIEW OF SYSTEMS: Reliable historian unable to obtain much of the history from the patient Past Medical History Past Medical History: CVA/TIA, GERD/Reflux, Hypertension, Osteoarthritis (OA), Thyroid Disorder Additional Past Medical History / Comment(s): Schizophrenia. 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 History of Any Multi-Drug Resistant Organisms: None Reported Past Surgical History: Hernia Repair, Hysterectomy, Tonsillectomy Past Psychological History: Schizophrenia Past Alcohol Use History: None Reported Past Drug Use History: None Reported - Past Family History Mother Family Medical History: Cancer Additional Family Medical History / Comment(s): Osteoporosis Sister(s) Family Medical History: Cancer Additional Family Medical History / Comment(s): 2 of 4 with breast Father Family Medical History: Myocardial Infarction ([place]) Additional Family Medical History / Comment(s): Paternal aunt and cousin had schizophrenia Medications and Allergies Home Medications Medication Instructions Recorded Confirmed Type Aspirin [Adult Low Dose Aspirin EC] 81 mg PO DAILY 07/21/18 12/05/20 History Furosemide [Lasix] 20 mg PO DAILY PRN 07/21/18 12/05/20 History Cholecalciferol [Vitamin D3 (25 125 mcg PO DAILY 04/07/19 12/05/20 History Mcg = 1000 Iu)] Folic Acid 1 mg PO DAILY #30 tablet 04/13/19 12/05/20 Rx Multivitamins, Thera [Multivitamin] 1 tab PO DAILY #30 tablet 04/13/19 12/05/20 Rx Thiamine [Vitamin B-1] 100 mg PO DAILY #30 tablet 04/13/19 12/05/20 Rx Levothyroxine Sodium [Synthroid] 75 mcg PO DAILY 03/29/20 12/05/20 History Vitamin E 400 unit PO SUMOTUTHFR 03/29/20 12/05/20 History Cranberry Concentrate 30,000mg 30,000 mg PO DAILY 05/06/20 12/05/20 History Ginkgo Biloba 120mg 120 mg PO HS 05/06/20 12/05/20 History Sertraline [Zoloft] 100 mg PO HS 05/06/20 12/05/20 History cloZAPine [Clozaril] 150 mg PO HS 05/06/20 12/05/20 History Chlorpheniramine Maleate 4 mg PO Q4H PRN 12/05/20 12/05/20 History [Chlor-Trimeton] Hydrochlorothiazide 12.5mg Tab 12.5 mg PO DAILY 12/05/20 12/05/20 History Losartan [Cozaar] 25 mg PO BID 12/05/20 12/05/20 History Omeprazole Magnesium [PriLOSEC OTC] 20 mg PO DAILY 12/05/20 12/05/20 History Allergies Allergy/AdvReac Type Severity Reaction Status Date / Time aspirin Allergy Unknown Verified 12/05/20 14:10 Penicillins Allergy Unknown Verified 12/05/20 14:10 Physical Exam Vitals: Vital Signs Temp Pulse Resp BP 12/06/20 13:41 97.2 F L 12/06/20 06:19 97.1 F L 66 18 160/74 Intake and Output 12/05/20 12/06/20 12/06/20 22:59 06:59 14:59 Other: Weight 84.36 kg PHYSICAL EXAMINATION: GENERAL: The patient is alert and oriented x3, not in any acute distress. Well developed, well nourished. Patient talks mostly gibberish actively psychotic at this time HEENT: Pupils are round and equally reacting to light. EOMI. No scleral icterus. No conjunctival pallor. Normocephalic, atraumatic. No pharyngeal erythema. No thyromegaly. CARDIOVASCULAR: S1 and S2 present. No murmurs, rubs, or gallops. PULMONARY: Chest is clear to auscultation, no wheezing or crackles. ABDOMEN: Soft, nontender, nondistended, normoactive bowel sounds. No palpable organomegaly. MUSCULOSKELETAL: No joint swelling or deformity. EXTREMITIES: No cyanosis, clubbing, or pedal edema. NEUROLOGICAL: Gross neurological examination did not reveal any focal deficits. SKIN: No rashes. Results CBC & Chem 7: 12/05/20 13:31 12/05/20 13:31 Labs: Abnormal Lab Results - Last 24 Hours (Table) 12/05/20 12/05/20 12/06/20 Range/Units 13:31 13:31 06:47 BUN 18 H (7-17) mg/dL Glucose 105 H (74-99) mg/dL Delta Bilirubin 0.3 H (0.0-0.2) mg/dL AST 45 H (14-36) U/L Cholesterol 233 H (<200) mg/dL LDL Cholesterol, Calc 157 H (0-99) mg/dL Urine Appearance Cloudy H (Clear) Urine Protein Trace H (Negative) Urine Ketones 3+ H (Negative) Urine Blood Trace H (Negative) Ur Leukocyte Esterase Large H (Negative) Urine RBC 30 H (0-5) /hpf Urine WBC 22 H (0-5) /hpf Ur Squamous Epith Cells 8 H (0-4) /hpf Amorphous Sediment Rare H (None) /hpf Urine Bacteria Rare H (None) /hpf Hyaline Casts 6 H (0-2) /lpf Urine Mucus Rare H (None) /hpf Microbiology - Last 24 Hours (Table) 12/05/20 13:31 Urine Culture - Preliminary Urine,Catheterized Assessment and Plan Plan: -Hypertension patient will be resumed on Cozaar hold off on hydrochlorothiazide as I do not believe this medication is needed at this time patient blood pressure is fairly stable at this time will monitor Hypothyroidism continue with levothyroxine -Schizophrenia management as per primary service -Gastroesophageal reflux disease
[2020-12-06 14:47] LABS: Hemoglobin A1C 5.9 % (4.0-6.0)
[2020-12-06] MEDS: SERTRALINE 100 MG TAB PO SCH (21:19)
[2020-12-06] MEDS: cloZAPine 25 MG TAB PO SCH (21:19)
[2020-12-06] MEDS: MELATONIN 3 MG TABLET PO SCH (21:19)
[2020-12-07] MEDS: LEVOTHYROXINE 75 MCG TAB PO SCH (06:33)
[2020-12-07] MEDS: CHOLECALCIFEROL 25 MCG (1000 IU) TABLET PO SCH (08:56)
[2020-12-07] MEDS: PANTOPRAZOLE 40 MG TABLET PO SCH (08:56)
[2020-12-07] MEDS: ASPIRIN 81 MG PO SCH (08:56)
[2020-12-07] MEDS: FOLIC ACID 1 MG TAB PO SCH (08:58)
[2020-12-07] MEDS: THIAMINE 100 MG TAB PO SCH (08:58)
[2020-12-07] MEDS: SENNOSIDES-DOCUSATE SODIUM 1 EACH TAB PO SCH ×2 (08:58→21:21)
[2020-12-07] MEDS: MULTIVITAMINS, THERA 1 EACH TAB PO SCH (08:58)
[2020-12-07] MEDS: cloZAPine 25 MG TAB PO SCH (08:58)
--- NOTE | 2020-12-07 11:35 | P.PN ---
Progress Note - Text Progress Note Date: 12/07/20 Interval History: Patient was seen wandering the hallways and was directable and agreeable to sp jc with technical publications writer in the office. Patient appears to be more appropriately with technical publications writer. She appears to have mild improvement in her hygiene and grooming today. She continues to be somewhat disorganized in her speech however appears to be improving mildly. She was more goal oriented today. She states that she is hearing the voices of other staff members however denies any auditory hallucinations. She claims that she was able to sleep better last night with the melatonin and has been taking her medications. She was focused on going to group and left the conversation early. She claims that she has a fair appetite and has been having regular bowel movements. At this time patient denies any suicidal or homical ideations, intent or plan. Patient denies any auditory, visual hallucinations. Patient denies any side effects from the medications and has been compliant with meds. Mental Status Exam: General Appearance: Patient appears to be less confused, stated age is alert, more directable today and not responding to internal stimuli. Patient appears to have improving hygiene and grooming. Behavior: Patient is seated without any agitated behavior. not responding to internal stimuli Speech: Patient's speech is concrete, monotone. Mood/Affect: Patient reports their mood is "fine", affect is congruent and constricted. Suicidality/Homicidality: Patient denies having any homicidal ideation intent or plan. Denies any suicidal ideations intent or plan Perceptions: Patient denies any visual hallucinations and denies any auditory hallucinations. Though content/process: Loose, disorganized, improving mildly. More logical today. Not endorsing any specific delusions or paranoia. Memory and concentration: AOX2, believes it is 11/30/2020, poor concentration Judgment and insight: Chronically poor, improving mildly Assessment Schizophrenia Plan: -Patient continues to meet criteria for inpatient psychiatric admission for symptom stabilization and safety. Patient has not signed adult voluntary form and medication consent and was placed in patient's chart. -Medications: Continue with clozapine 50 mg twice a day for psychosis, will increase to 75 mg daily at bedtime starting tomorrow. We will gradually titrate up as tolerated/needed. Continue to monitor regular CBCs. Continue Zoloft 100 mg daily at bedtime for mood/anxiety. Continue with melatonin 3 mg daily at bedtime for insomnia. -When necessary Ativan and Haldol for agitation/aggression. -NRT - not needed as patient does not smoke -SW on board for discharge planning. Encouraged the patient to participate in art fishman. Will await deferral and court date.
[2020-12-07 12:58] LABS: Clozapine (Clozaril) 251 ng/mL (200-700); Norclozapine 89 ng/mL (200-700)
[2020-12-07] MEDS ORDERED: cloZAPine 25 MG TAB PO ONE (21:00)
[2020-12-07] MEDS: SERTRALINE 100 MG TAB PO SCH (21:21)
[2020-12-07] MEDS: MELATONIN 3 MG TABLET PO SCH (21:21)
[2020-12-08] MEDS: LEVOTHYROXINE 75 MCG TAB PO SCH (05:54)
[2020-12-08] MEDS: SENNOSIDES-DOCUSATE SODIUM 1 EACH TAB PO SCH ×2 (08:47→21:13)
[2020-12-08] MEDS: FOLIC ACID 1 MG TAB PO SCH (08:47)
[2020-12-08] MEDS: ASPIRIN 81 MG PO SCH (08:47)
[2020-12-08] MEDS: THIAMINE 100 MG TAB PO SCH (08:47)
[2020-12-08] MEDS: PANTOPRAZOLE 40 MG TABLET PO SCH (08:47)
[2020-12-08] MEDS: CHOLECALCIFEROL 25 MCG (1000 IU) TABLET PO SCH (08:47)
[2020-12-08] MEDS: MULTIVITAMINS, THERA 1 EACH TAB PO SCH (08:47)
[2020-12-08] MEDS: cloZAPine 25 MG TAB PO SCH (08:47)
--- NOTE | 2020-12-08 10:28 | P.PN ---
Progress Note - Text Progress Note Date: 12/08/20 Interval history: Patient was seen resting in bed and was directable and agreeable to speak with travel writer. The patient reports that she just feels tired and that she is resting somewhat that she can have energy to go to group. She is currently not reporting any suicidal or homicidal ideation, intention, and/or plan. She is not reporting any auditory or visual hallucinations today. She is denying any paranoia or delusions. She reports no issues with sleep or appetite at this time. She denies any chest pain, palpitations, shortness of breath. She has been adherent with her medications and reports that she only feels some drowsiness secondary to the clozapine. Mental status exam: General Appearance: Patient appears to be stated age is alert, directable, and cooperative. Fair hygiene and grooming. Behavior: No agitated behavior. Patient is calm and directable patient is resting in bed comfortably. Speech: Patient's speech is fluent and nonpressured. Mood/Affect: Mood is improving mildly, affect is congruent and constricted. Suicidality/Homicidality: Patient denies having any suicidal or homicidal ideation intent or plan. Perceptions: Patient denies any auditory or visual hallucinations. Though content/process: There is no evidence of any delusional thought content and thought process is linear and goal-directed. Memory and concentration: AOX3, grossly intact for the purposes of this session Judgment and insight: improving mildly Assessment/Plan: Continue with current diagnosis. Patient continues to meet criteria for inpatient psychiatric admission for symptom stabilization and safety. Patient will be maintained on current psychotropic medication regimen. We will reexamine tomorrow if the patient needs any further titration of her clozapine. Monitor for medication compliance and for any psychotropic medication side effects. Will continue to monitor ongoing response to treatment. Encouraged participation in milieu.
[2020-12-08] MEDS ORDERED: cloZAPine 25 MG TAB PO SCH (21:00)
[2020-12-08] MEDS: SERTRALINE 100 MG TAB PO SCH (21:13)
[2020-12-08] MEDS: MELATONIN 3 MG TABLET PO SCH (21:13)
[2020-12-09] MEDS: LEVOTHYROXINE 75 MCG TAB PO SCH (05:24)
[2020-12-09] MEDS: CHOLECALCIFEROL 25 MCG (1000 IU) TABLET PO SCH (07:46)
[2020-12-09] MEDS: PANTOPRAZOLE 40 MG TABLET PO SCH (07:46)
[2020-12-09] MEDS: cloZAPine 25 MG TAB PO SCH (07:46)
[2020-12-09] MEDS: MULTIVITAMINS, THERA 1 EACH TAB PO SCH (07:46)
[2020-12-09] MEDS: THIAMINE 100 MG TAB PO SCH (07:47)
[2020-12-09] MEDS: ASPIRIN 81 MG PO SCH (07:47)
[2020-12-09] MEDS: FOLIC ACID 1 MG TAB PO SCH (07:47)
[2020-12-09] MEDS: SENNOSIDES-DOCUSATE SODIUM 1 EACH TAB PO SCH ×2 (07:47→22:08)
--- NOTE | 2020-12-09 10:21 | P.PN ---
Progress Note - Text Progress Note Date: 12/09/20 Interval history: Patient was seen resting in bed and was directable and agreeable to speak with entry writer. The patient initially reported that she is just feeling tired. She does not report any suicidal or homicidal ideation, intention, and/or plan. She is not reporting auditory or visual hallucinations. She initially denied any paranoia or delusions. 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 The patient is redirectable and is able to calm down. She reports no issues with sleep or appetite at this time. She denies any chest pain, palpitations, shortness of breath, and has been adherent with her medications. Mental status exam: General Appearance: Patient appears to be stated age is alert, directable, and cooperative. Fair hygiene and grooming. Behavior: Mildly elevated psychomotor activity. Some rambling. Speech: Patient's speech is fluent and nonpressured. Hyperverbal but was directable. Mood/Affect: Mood is improving mildly, affect is congruent and constricted. Suicidality/Homicidality: Patient denies having any suicidal or homicidal ideation intent or plan. Perceptions: Patient denies any auditory or visual hallucinations. Though content/process: The patient did express some concern that people were judging her. Otherwise her thought content was normal. Thought process does appear to be linear and logical. Memory and concentration: AOX3, grossly intact for the purposes of this session Judgment and insight: improving mildly Assessment/Plan: Continue with current diagnosis. Patient continues to meet criteria for inpatient psychiatric admission for symptom stabilization and safety. Patient will be maintained on current psychotropic medication regimen With the exception of increasing her clozapine nightly dose to 100 mg at bedtime for total of 150 mg a clozapine per day. Monitor for medication compliance and for any psychotropic medication side effects. Will continue to monitor ongoing response to treatment. Encouraged participation in milieu.
[2020-12-09] MEDS: LORazepam 1 MG TAB PO PRN (15:35)
[2020-12-09] MEDS: cloZAPine 100 MG TAB PO SCH (22:07)
[2020-12-09] MEDS: MELATONIN 3 MG TABLET PO SCH (22:08)
[2020-12-09] MEDS: SERTRALINE 100 MG TAB PO SCH (22:08)
[2020-12-10] MEDS: LORazepam 1 MG TAB PO PRN ×2 (00:28→20:57)
[2020-12-10] MEDS: cloZAPine 100 MG TAB PO SCH ×3 (00:28→20:57)
[2020-12-10] MEDS: LEVOTHYROXINE 75 MCG TAB PO SCH (08:10)
[2020-12-10] MEDS: CHOLECALCIFEROL 25 MCG (1000 IU) TABLET PO SCH (08:11)
[2020-12-10] MEDS: MULTIVITAMINS, THERA 1 EACH TAB PO SCH (08:11)
[2020-12-10] MEDS: SENNOSIDES-DOCUSATE SODIUM 1 EACH TAB PO SCH ×2 (08:11→20:57)
[2020-12-10] MEDS: cloZAPine 25 MG TAB PO SCH (08:12)
[2020-12-10] MEDS: THIAMINE 100 MG TAB PO SCH (08:12)
[2020-12-10] MEDS: FOLIC ACID 1 MG TAB PO SCH (08:12)
[2020-12-10] MEDS: PANTOPRAZOLE 40 MG TABLET PO SCH (08:12)
[2020-12-10] MEDS: ASPIRIN 81 MG PO SCH (08:12)
--- NOTE | 2020-12-10 11:20 | P.PN ---
Progress Note - Text Progress Note Date: 12/10/20 Interval History: Patient was seen laying down in bed this morning and was directable and agreea ble to speak with card writer hand. Patient appears to be more appropriately with card writer hand and appeared to have a calmer demeanor. She appears to have mild improvement in her hygiene and grooming today. Patient was noted to be aggressive with staff last night and apparently punching. She continues to be somewhat disorganized in her speech however appears to be improving mildly. She spoke about a [place] today and repeated the words "it's all coming back to me now" several times in response to several different questions by card writer hand. She states that she is hearing the voices of other staff members and did vaguely speak about hearing voices. She claims that she was able to sleep better last night however was not able to recall what happened last night in terms of her agitation. She claims t hat she has a fair appetite and has been having regular bowel movements. At this time patient denies any suicidal or homical ideations, intent or plan. Patient denies any auditory, visual hallucinations. Patient denies any side effects from the medications and has been compliant with meds. Mental Status Exam: General Appearance: Patient appears to be less confused, stated age is alert, more directable today and not responding to internal stimuli. Patient appears to have improving hygiene and grooming. Behavior: Patient is seated without any agitated behavior. Bizarre at times. Speech: Patient's speech is concrete, monotone. Rambles. Mood/Affect: Patient reports their mood is "ok", affect is congruent and constricted. Suicidality/Homicidality: Patient denies having any homicidal ideation intent or plan. Denies any suicidal ideations intent or plan Perceptions: Patient denies any visual hallucinations and denies any auditory hallucinations. Though content/process: Loose, disorganized, improving mildly. Not endorsing any specific delusions or paranoia. Memory and concentration: AOX2, believes it is 11/30/2020, poor concentration Judgment and insight: Chronically poor, improving mildly Assessment Schizophrenia Plan: -Patient continues to meet criteria for inpatient psychiatric admission for symptom stabilization and safety. Patient has not signed adult voluntary form a nd medication consent and was placed in patient's chart. -Medications: Continue with clozapine 50 mg + 100mg qhs for psychosis. We will gradually titrate up as tolerated/needed. Continue to monitor regular CBCs. Continue Zoloft 100 mg daily at bedtime for mood/anxiety. Continue with melatonin 3 mg daily at bedtime for insomnia. -When necessary Ativan and Haldol for agitation/aggression. -NRT - not needed as patient does not smoke -SW on board for discharge planning. Encouraged the patient to participate in milieu. deferral with technology auditor set for today and full court hearing set for 12/13/2020.
[2020-12-10] MEDS: MELATONIN 3 MG TABLET PO SCH (20:57)
[2020-12-10] MEDS: SERTRALINE 100 MG TAB PO SCH (20:57)
[2020-12-11] MEDS: PANTOPRAZOLE 40 MG TABLET PO SCH (09:28)
[2020-12-11] MEDS: LEVOTHYROXINE 75 MCG TAB PO SCH (09:28)
[2020-12-11] MEDS: ASPIRIN 81 MG PO SCH (09:28)
[2020-12-11] MEDS: MULTIVITAMINS, THERA 1 EACH TAB PO SCH (09:29)
[2020-12-11] MEDS: CHOLECALCIFEROL 25 MCG (1000 IU) TABLET PO SCH (09:29)
[2020-12-11] MEDS: SENNOSIDES-DOCUSATE SODIUM 1 EACH TAB PO SCH ×2 (09:29→20:56)
[2020-12-11] MEDS: FOLIC ACID 1 MG TAB PO SCH (09:29)
[2020-12-11] MEDS: cloZAPine 25 MG TAB PO SCH ×2 (09:29→20:56)
[2020-12-11] MEDS: THIAMINE 100 MG TAB PO SCH (09:30)
--- NOTE | 2020-12-11 09:54 | P.PN ---
Progress Note - Text Progress Note Date: 12/11/20 Interval History: Patient was seen wandering the hallways near the nurse's desk this morning and was directable and agreeable to speak with investigative writer. Patient appears to be more directable today and have a calmer demeanor. She appears to have mild improvement in her hygiene and grooming today. She continues to ramble at times and for the most part was fairly incoherent and disorganized. She is improving mildly in terms of her speech clarity. She spoke about tuna and other fishes to investigative writer today. She also had vague multiple somatic complaints. She did claim that she has been having regular bowel movements. She states that she is hearing the voices of other staff members and noises however did not endorse specific auditory hallucinations today. Patient was not able to recall if she slept last night and states that "who cares if I did". Patient did end up receiving both haloperidol and Ativan po prns last night. At this time patient denies any suicidal or homical ideations, intent or plan. Patient denies any auditory, visual hallucinations. Patient denies any side effects from the medications and has been compliant with meds. Mental Status Exam: General Appearance: Patient appears to be less confused, stated age is alert, more directable today and not responding to internal stimuli. Patient appears to have improving hygiene and grooming. wearing hospital gown. Behavior: Patient is seated without any agitated behavior. Bizarre at times, improving mildly. Speech: Patient's speech is concrete, monotone. Rambles. Mood/Affect: Patient reports their mood is "fine", affect is congruent and constricted. Suicidality/Homicidality: Patient denies having any homicidal ideation intent or plan. Denies any suicidal ideations intent or plan Perceptions: Patient denies any visual hallucinations and denies any auditory hallucinations. Though content/process: Loose, disorganized, improving mildly. Not endorsing any specific delusions or paranoia. Memory and concentration: AOX2, believes it is 11/30/2020, poor concentration Judgment and insight: Chronically poor Assessment Schizophrenia Plan: -Patient continues to meet criteria for inpatient psychiatric admission for symptom stabilization and safety. Patient has not signed adult voluntary form and medication consent and was placed in patient's chart. -Medications: increased clozapine 50 mg + 125 mg qhs for psychosis. We will gradually titrate up as tolerated/needed. Continue to monitor regular CBCs. Continue Zoloft 100 mg daily at bedtime for mood/anxiety. Increased melatonin 5 mg daily at bedtime for insomnia. -When necessary Ativan and Haldol for agitation/aggression. -NRT - not needed as patient does not smoke -SW on board for discharge planning. Encouraged the patient to participate in milieu. full court hearing set for 12/13/2020.
[2020-12-11] MEDS: SERTRALINE 100 MG TAB PO SCH (20:56)
[2020-12-11] MEDS: MELATONIN 5 MG TABLET PO SCH (20:56)
[2020-12-12] MEDS: CHOLECALCIFEROL 25 MCG (1000 IU) TABLET PO SCH (09:21)
[2020-12-12] MEDS: LEVOTHYROXINE 75 MCG TAB PO SCH (09:21)
[2020-12-12] MEDS: cloZAPine 25 MG TAB PO SCH ×2 (09:21→20:06)
[2020-12-12] MEDS: ASPIRIN 81 MG PO SCH (09:21)
[2020-12-12] MEDS: PANTOPRAZOLE 40 MG TABLET PO SCH (09:21)
[2020-12-12] MEDS: MULTIVITAMINS, THERA 1 EACH TAB PO SCH (09:22)
[2020-12-12] MEDS: SENNOSIDES-DOCUSATE SODIUM 1 EACH TAB PO SCH ×2 (09:22→20:06)
[2020-12-12] MEDS: THIAMINE 100 MG TAB PO SCH (09:22)
[2020-12-12] MEDS: FOLIC ACID 1 MG TAB PO SCH (09:22)
--- NOTE | 2020-12-12 09:34 | P.PN ---
Progress Note - Text Progress Note Date: 12/12/20 Interval History: Patient was seen wandering the hallways near the nurse's desk this morning after taking her medications and was directable and agreeable to speak with keno writer / runner. Patient appears to be more directable today and appeared to have improvement in her thought process. She states that she "overslept" last night and states that she has no overnight complaints. She continues to ramble at times however her speech was much clearer today. She appears to have mild improvement in her hy giene and grooming today. She spoke about her sister and potentially living with her upon discharge. She also spoke about the court process and states that "I'll do whatever the water jet operator wants me to do". She did claim that she has been having regular bowel movements. She states that she is hearing the voices of other staff members and noises however did not endorse specific auditory hallucinations today. At this time patient denies any suicidal or homical ideations, intent or plan. Patient denies any auditory, visual hallucinations. Patient denies any side effects from the medications and has been compliant with meds. Mental Status Exam: General Appearance: Patient appears to be less confused, stated age is alert, more directable today and not responding to internal stimuli. Patient appears to have improving hygiene and grooming. wearing hospital gown. Behavior: Patient is seated without any agitated behavior. Bizarre at times, improving mildly. Speech: Patient's speech is concrete, more clear. Rambles. Mood/Affect: Patient reports their mood is "good", affect is congruent and constricted. Suicidality/Homicidality: Patient denies having any homicidal ideation intent or plan. Denies any suicidal ideations intent or plan Perceptions: Patient denies any visual hallucinations and denies any auditory hallucinations. Though content/process: disorganized, improving mildly. Not endorsing any specific delusions or paranoia. Memory and concentration: AOX2, believes it is 11/30/2020, poor concentration Judgment and insight: Chronically poor, improving mildly Assessment Schizophrenia Plan: -Patient continues to meet criteria for inpatient psychiatric admission for symptom stabilization and safety. Patient has not signed adult voluntary form and medication consent and was placed in patient's chart. -Medications: Continue with clozapine 50 mg + 125 mg qhs for psychosis. We will gradually titrate up as tolerated/needed. Continue to monitor regular CBCs. Continue Zoloft 100 mg daily at bedtime for mood/anxiety. Continue with melatonin 5 mg daily at bedtime for insomnia. -When necessary Ativan and Haldol for agitation/aggression. -NRT - not needed as patient does not smoke -SW on board for discharge planning. Encouraged the patient to participate in milieu. full court hearing set for 12/13/2020. Likely discharge in 1-2 days. Patient will be followed closely by [facility] as an outpatient and also be discharged to her sister's care.
[2020-12-12] MEDS: SERTRALINE 100 MG TAB PO SCH (20:06)
[2020-12-12] MEDS: MELATONIN 5 MG TABLET PO SCH (20:06)
[2020-12-13] MEDS: LEVOTHYROXINE 75 MCG TAB PO SCH (06:12)
[2020-12-13] MEDS: PANTOPRAZOLE 40 MG TABLET PO SCH (07:37)
[2020-12-13] MEDS: cloZAPine 25 MG TAB PO SCH ×2 (07:38→20:54)
[2020-12-13] MEDS: FOLIC ACID 1 MG TAB PO SCH (07:38)
[2020-12-13] MEDS: ASPIRIN 81 MG PO SCH (07:38)
[2020-12-13] MEDS: THIAMINE 100 MG TAB PO SCH (07:38)
[2020-12-13] MEDS: SENNOSIDES-DOCUSATE SODIUM 1 EACH TAB PO SCH ×2 (07:38→20:55)
[2020-12-13] MEDS: CHOLECALCIFEROL 25 MCG (1000 IU) TABLET PO SCH (07:38)
[2020-12-13] MEDS: MULTIVITAMINS, THERA 1 EACH TAB PO SCH (07:38)
[2020-12-13 08:46] LABS: Basophils % (A) 0 %; Eosinophils % (A) 0 %; HCT 34.6 % (34.0-46.0); HGB 11.5 gm/dL (11.4-16.0); Lymphocytes # (A) 1.6 k/uL (1.0-4.8); Lymphocytes % (A) 29 %; MCH 29.5 pg (25.0-35.0); MCHC 33.3 g/dL (31.0-37.0); MCV 88.7 fL (80.0-100.0); Mean Platelet Volume 8.3; Monocytes # (A) 0.4 k/uL (0-1.0); Monocytes % (A) 8 %; Neutrophils # (A) 3.4 k/uL (1.3-7.7); Neutrophils % (A) 62 %; Platelet Count 233 k/uL (150-450); RDW 13.8 % (11.5-15.5); WBC 5.6 k/uL (3.8-10.6)
--- NOTE | 2020-12-13 10:46 | P.PN ---
Progress Note - Text Progress Note Date: 12/13/20 Interval History: Patient was seen wandering the hallways near the nurse's desk this morning after taking her medications and was directable and agreeable to speak with junior copywriter. Patient appears to be more directable today. She appeared to have continued improvement in her thought process. She offered no overnight complaints. She states that once again that she "overslept". She states that she has been trying to call her sister and states that they're arranging for her to go there upon discharge. She states that she has been taking her medications as prescribed. She continues to have some disorganization in her speech however this has been improving. She continues to ramble at times. She appears to have mild improvement in her hygiene and grooming today. She spoke once again about the court process and asked about her treatment order. She did claim that she has been having regular bowel movements and denied any urinary symptoms at this time. She states that she is hearing the voices of other staff members and noises however did not endorse specific auditory hallucinations today. At this time patient denies any suicidal or homical ideations, intent or plan. Patient denies any auditory, visual hallucinations. Patient denies any side effects from the medications and has been compliant with meds. Mental Status Exam: General Appearance: Patient appears to be less confused, stated age is alert, more directable today and not responding to internal stimuli. Patient appears to have improving hygiene and grooming. wearing hospital gown. Behavior: Patient is seated without any agitated behavior. Bizarre at times, improving mildly. More directable today. Speech: Patient's speech is concrete, more clear. Rambles. Mood/Affect: Patient reports their mood is "ok", affect is congruent and constricted. Suicidality/Homicidality: Patient denies having any homicidal ideation intent or plan. Denies any suicidal ideations intent or plan Perceptions: Patient denies any visual hallucinations and denies any auditory hallucinations. Though content/process: disorganized, improving mildly. Not endorsing any specific delusions or paranoia. Memory and concentration: AOX2, believes it is 11/30/2020, poor concentration Judgment and insight: Chronically poor, improving mildly Assessment Schizophrenia Plan: -Patient continues to meet criteria for inpatient psychiatric admission for symptom stabilization and safety. Patient has signed a deferral and agreeable to continue on with treatment. -Medications: Continue with clozapine 50 mg + 125 mg qhs for psychosis. We will gradually titrate up as tolerated/needed. Reviewed CBC with differential today. Continue Zoloft 100 mg daily at bedtime for mood/anxiety. Continue with melatonin 5 mg daily at bedtime for insomnia. -When necessary Ativan and Haldol for agitation/aggression. -NRT - not needed as patient does not smoke -SW on board for discharge planning. Encouraged the patient to participate in milieu. Patient has deferred with her deputy commonwealth's attorney and agreeable to continue with treatment. Likely discharge tomorrow back to her sister's home. Patient will be followed closely by [facility] as an outpatient. [facility] to do intake today on the unit and patients sister to visit today to evaluate patient for her baseline in preparation for d/c tomorrow.
[2020-12-13 14:53] VITALS: BMI 34.8
[2020-12-13] MEDS: SERTRALINE 100 MG TAB PO SCH (20:55)
[2020-12-13] MEDS: MELATONIN 5 MG TABLET PO SCH (20:55)
[2020-12-14 06:38] VITALS: BP 134/67; PULSE 84; RESP 16; TEMP 97.9
[2020-12-14] MEDS: LEVOTHYROXINE 75 MCG TAB PO SCH (08:05)
[2020-12-14] MEDS: THIAMINE 100 MG TAB PO SCH (08:05)
[2020-12-14] MEDS: CHOLECALCIFEROL 25 MCG (1000 IU) TABLET PO SCH (08:05)
[2020-12-14] MEDS: FOLIC ACID 1 MG TAB PO SCH (08:05)
[2020-12-14] MEDS: ASPIRIN 81 MG PO SCH (08:05)
[2020-12-14] MEDS: cloZAPine 25 MG TAB PO SCH (08:06)
[2020-12-14] MEDS: PANTOPRAZOLE 40 MG TABLET PO SCH (08:06)
[2020-12-14] MEDS: MULTIVITAMINS, THERA 1 EACH TAB PO SCH (08:06)
[2020-12-14] MEDS: SENNOSIDES-DOCUSATE SODIUM 1 EACH TAB PO SCH (08:06)
--- NOTE | 2020-12-14 09:34 | P.DS ---
Providers Date of admission: 12/05/20 18:02 Expected date of discharge: 12/14/20 Attending physician: Shakeel Kenny MD Consults: 12/05/20 18:13 Consult Physician Routine Consulting Provider: Gale Joshi Consult Reason/Comments: Medical Management Do you want consulting provider notified?: Yes Primary care physician: Jacki Scott - Discharge Diagnosis(es) (1) Schizophrenia Current Visit: Yes Status: Acute Priority: High Hospital Course: Admission HPI: Admission note was completed by filing writer "Patient is a 65-year-old female, with a chronic history of schizophrenia multiple psychiatric hospitalizations who has a guardian which is her sister. Currently lives alone. Patient presented to the hospital yesterday for a psychiatric evaluation. According to ER report patient had been unclear about taking her medications or not and had been a poor historian and rambling. Patient's sister/guardian had filed a petition stating the patient had been pulling a fire alarm at her home and also knocking on doors and "talking gibberish" and throwing things at the wall. Patient was admitted involuntarily to the mental health unit for evaluation and treatment. Patient was seen wandering the hallways and speaking to herself responding to internal stimuli. Patient had poor hygiene and grooming. She was directable and agreeable to speak to the filing writer in the office. She claims that "everything around me is hostile" and began being fixated on the sharp hostile. She spelled the word "hostile" out several times. She appeared to be fairly confused at times and was a poor historian and did not give good information as to why she was in the hospital. She states that "the broadcast program director brought me in". She was concrete illogical and loose in associations. She admitted to not taking her medications regularly. She states that she does hear voices however states that they are "hostile ones only". She had poor insight in judgment and poor reality testing. Patient denies any suicidal or homicidal ideations intent or plan. At this time patient denies any visual hallucinations. Patient admits to using no recreational drugs or cigarettes." Hospital course: Upon admission to the unit patient was initially bizarre, disorganized and psychotic. Patient was however admitted involuntarily and ended up signing a deferral with the immigration attorney and agreeing to continue on with treatment on the unit. Patient got along well with other patients on the unit and followed unit protocol. Patient at times did get agitated and required prn medications. Patient was compliant with the medications and denied any side effects throughout hospital course. Patient was started on clozapine and titrated up to a dose of 50 mg daily +125 mg daily at bedtime for psychosis, Zoloft 100 mg daily at bedtime for mood/anxiety, melatonin 5 mg daily at bedtime for insomnia.. Patient attempted to be engaged in therapy both group and individual as best that she could while in the hospital. Patient was also seen by medical team for history and physical exam. Regular CBC with differential was ordered for monitoring of WBCs and ANC. Throughout the course of the hospitalization patient gradually improved with regards to mood, psychosis, sleep and return back to her baseline level of functioning. On the day of discharge patient denied any suicidal or homicidal ideations intent or plan denied any auditory or visual hallucinations. Patient endorsed wanting to live for his health and family. Patient denied any paranoia and did not endorse any delusions. Patient does not have a significant history of substance abuse however was counseled on abstaining from all substances including alcohol and marijuana. Patient was also counseled on the medications and need for regular compliance and was encouraged to follow-up with their outpatient appointment for mental health and also for primary care. Prior to discharge, patient's sister came onto the unit to visit patient and assess her baseline and is agreeable to have patient stay with her upon discharge today. Patient will be followed closely by [facility] through [facility] during the week. Mental status exam: General Appearance: Patient appears to be overweight, stated age is alert, pleasant, and attempts to be cooperative. Patient is in no acute distress and has improved hygiene and grooming Behavior: Patient is calmly seated without any agitated behavior. Speech: Patient's speech is fluent and nonpressured. Mood/Affect: Patient reports their mood is "good", affect is congruent and euthymic. Suicidality/Homicidality: Patient denies having any suicidal or homicidal ideation intent or plan. Perceptions: Patient denies any auditory or visual hallucinations. Though content/process: There is no evidence of any delusions or paranoia. [place]. Poverty of content. Memory and concentration: AOX3, grossly intact for the purposes of this session. Judgment and insight: chronically poor at baseline, however has improved with guarded prognosis Impression: Schizophrenia Plan: -Continue with discharge today as patient has improved and stabilized psychiatrically and is not currently an imminent threat to herself and/or others. -Continue medications: Clozapine 50 mg daily +125 mg daily at bedtime for psychosis, Zoloft 100 mg nightly for mood/anxiety, melatonin 5 mg daily at bedtime for insomnia. -Patient will have regular CBC with differential monitoring of WBCs and ANC as patient is on clozapine. She will be followed by the next step program through [facility] throughout the week. -Patient was counseled on the need for medication compliance and appropriate follow-up at mental health and also primary care for medical issues. Patient verbalized understanding and agreed. -Social work to arrange for and conduct family meeting to ensure safety upon discharge and answer any questions/concerns. Social work also to arrange for patients follow up appointments with [facility] for psychiatric care along with follow up with primary care provider. -Patient counseled on abstaining from recreational drugs and marijuana and alcohol. Was informed/educated on the adverse effects on their physical and mental health. Patient verbally agreed and understood. -Patient was instructed to return to the hospital or seek immediate medical care if their psychiatric or medical symptoms do worsen or reoccur. Allergies Allergy/AdvReac Type Severity Reaction Status Date / Time aspirin Allergy Unknown Verified 12/05/20 14:10 Penicillins Allergy Unknown Verified 12/05/20 14:10 Laboratory Results WBC 5.6 k/uL (3.8-10.6) 12/13/20 08:19 RBC 3.90 m/uL (3.80-5.40) 12/13/20 08:19 Hgb 11.5 gm/dL (11.4-16.0) 12/13/20 08:19 Hct 34.6 % (34.0-46.0) 12/13/20 08:19 MCV 88.7 fL (80.0-100.0) 12/13/20 08:19 MCH 29.5 pg (25.0-35.0) 12/13/20 08:19 MCHC 33.3 g/dL (31.0-37.0) 12/13/20 08:19 RDW 13.8 % (11.5-15.5) 12/13/20 08:19 Plt Count 233 k/uL (150-450) 12/13/20 08:19 MPV 8.3 12/13/20 08:19 Neutrophils % 62 % 12/13/20 08:19 Lymphocytes % 29 % 12/13/20 08:19 Monocytes % 8 % 12/13/20 08:19 Eosinophils % 0 % 12/13/20 08:19 Basophils % 0 % 12/13/20 08:19 Neutrophils # 3.4 k/uL (1.3-7.7) 12/13/20 08:19 Lymphocytes # 1.6 k/uL (1.0-4.8) 12/13/20 08:19 Monocytes # 0.4 k/uL (0-1.0) 12/13/20 08:19 Eosinophils # 0.0 k/uL (0-0.7) 12/13/20 08:19 Basophils # 0.0 k/uL (0-0.2) 12/13/20 08:19 Sodium 142 mmol/L (137-145) 12/05/20 13:31 Potassium 4.2 mmol/L (3.5-5.1) 12/05/20 13:31 Chloride 106 mmol/L (98-107) 12/05/20 13:31 Carbon Dioxide 22 mmol/L (22-30) 12/05/20 13:31 Anion Gap 14 mmol/L 12/05/20 13:31 BUN 18 mg/dL (7-17) H 12/05/20 13:31 Creatinine 0.95 mg/dL (0.52-1.04) 12/05/20 13:31 Est GFR (CKD-EPI)AfAm 73 (>60 ml/min/1.73 sqM) 12/05/20 13:31 Est GFR (CKD-EPI)NonAf 63 (>60 ml/min/1.73 sqM) 12/05/20 13:31 Glucose 105 mg/dL (74-99) H 12/05/20 13:[address] Glu mg/dL 123 12/06/20 06:47 Hemoglobin A1c 5.9 % (4.0-6.0) 12/06/20 06:47 Calcium 9.2 mg/dL (8.4-10.2) 12/05/20 13:31 Total Bilirubin 1.2 mg/dL (0.2-1.3) 12/06/20 06:47 Conjugated Bilirubin 0.0 mg/dL (0.0-0.3) 12/06/20 06:47 Unconjugated Bilirubin 0.9 mg/dL (0.0-1.1) 12/06/20 06:47 Delta Bilirubin 0.3 mg/dL (0.0-0.2) H 12/06/20 06:47 AST 45 U/L (14-36) H 12/06/20 06:47 ALT 29 U/L (4-34) 12/06/20 06:47 Alkaline Phosphatase 99 U/L (38-126) 12/06/20 06:47 Total Protein 7.1 g/dL (6.3-8.2) 12/06/20 06:47 Albumin 4.1 g/dL (3.5-5.0) 12/06/20 06:47 Triglycerides 100 mg/dL (<150) 12/06/20 06:47 Cholesterol 233 mg/dL (<200) H 12/06/20 06:47 LDL Cholesterol, Calc 157 mg/dL (0-99) H 12/06/20 06:47 HDL Cholesterol 56 mg/dL (40-60) 12/06/20 06:47 TSH 1.550 mIU/L (0.465-4.680) 12/06/20 06:47 Urine Color Yellow 12/05/20 13:31 Urine Appearance Cloudy (Clear) H 12/05/20 13:31 Urine pH 5.5 (5.0-8.0) 12/05/20 13:31 Ur Specific [place] 1.013 (1.001-1.035) 12/05/20 13:31 Urine Protein Trace (Negative) H 12/05/20 13:31 Urine Glucose (UA) Negative (Negative) 12/05/20 13:31 Urine Ketones 3+ (Negative) H 12/05/20 13:31 Urine Blood Trace (Negative) H 12/05/20 13:31 Urine Nitrite Negative (Negative) 12/05/20 13:31 Urine Bilirubin Negative (Negative) 12/05/20 13:31 Urine Urobilinogen <2.0 mg/dL (<2.0) 12/05/20 13:31 Ur Leukocyte Esterase Large (Negative) H 12/05/20 13:31 Urine RBC 30 /hpf (0-5) H 12/05/20 13:31 Urine WBC 22 /hpf (0-5) H 12/05/20 13:31 Ur Squamous Epith Cells 8 /hpf (0-4) H 12/05/20 13:31 Amorphous Sediment Rare /hpf (None) H 12/05/20 13:31 Urine Bacteria Rare /hpf (None) H 12/05/20 13:31 Hyaline Casts 6 /lpf (0-2) H 12/05/20 13:31 Urine Mucus Rare /hpf (None) H 12/05/20 13:31 Clozapine 251 ng/mL (200-700) 12/06/20 06:47 Norclozapine 89 ng/mL (200-700) L 12/06/20 06:47 Serum Alcohol <10 mg/dL 12/05/20 13:31 Coronavirus (PCR) Not Detected (Not Detectd) 12/05/20 13:31 Vital Signs Temp 97.9 F 12/14/20 06:37 Pulse 84 12/14/20 06:37 Resp 16 12/14/20 06:37 BP 134/67 12/14/20 06:37 Pulse Ox 97 12/14/20 06:37 Intake & Output 12/13/20 12/14/20 12/14/20 18:59 06:59 18:59 Weight 98 kg Patient Condition at Discharge: Stable Plan - Discharge Summary New Discharge Prescriptions: New Aspirin 81 mg PO DAILY 30 Days chew cloZAPine [Clozaril] 125 mg PO HS 30 Days tab cloZAPine [Clozaril] 50 mg PO DAILY 30 Days tab Folic Acid 1 mg PO DAILY 30 Days tab Melatonin 5 mg PO HS 30 Days tablet Multivitamins, Thera [Multivitamin (formulary)] 1 each PO DAILY 30 Days tab Pantoprazole [Protonix] 40 mg PO DAILY@0730 30 Days tablet. Sennosides-Docusate Sodium [Senokot-S] 1 each PO BID 30 Days tab Levothyroxine Sodium [Synthroid] 75 mcg PO DAILY@0630 30 Days tab Thiamine [Vitamin B-1] 100 mg PO DAILY 30 Days tab Cholecalciferol [Vitamin D3 (25 Mcg = 1000 Iu)] 125 mcg PO DAILY 30 Days tablet Continue Sertraline [Zoloft] 100 mg PO HS 30 Days tab Discontinued Aspirin [Adult Low Dose Aspirin EC] 81 mg PO DAILY Furosemide [Lasix] 20 mg PO DAILY PRN PRN Reason: Edema Cholecalciferol [Vitamin D3 (25 Mcg = 1000 Iu)] 125 mcg PO DAILY Folic Acid 1 mg PO DAILY #30 tablet Multivitamins, Thera [Multivitamin] 1 tab PO DAILY #30 tablet Thiamine [Vitamin B-1] 100 mg PO DAILY #30 tablet Levothyroxine Sodium [Synthroid] 75 mcg PO DAILY Vitamin E 400 unit PO SUMOTUTHFR Cranberry Concentrate 30,000mg 30,000 mg PO DAILY Ginkgo Biloba 120mg 120 mg PO HS cloZAPine [Clozaril] 150 mg PO HS Omeprazole Magnesium [PriLOSEC OTC] 20 mg PO DAILY Losartan [Cozaar] 25 mg PO BID Chlorpheniramine Maleate [Chlor-Trimeton] 4 mg PO Q4H PRN PRN Reason: Allergy Symptoms Hydrochlorothiazide 12.5mg Tab 12.5 mg PO DAILY Discharge Medication List Aspirin 81 mg PO DAILY 30 Days chew 12/14/20 [Rx] Cholecalciferol [Vitamin D3 (25 Mcg = 1000 Iu)] 125 mcg PO DAILY 30 Days tablet 12/14/20 [Rx] Folic Acid 1 mg PO DAILY 30 Days tab 12/14/20 [Rx] Levothyroxine Sodium [Synthroid] 75 mcg PO DAILY@0630 30 Days tab 12/14/20 [Rx] Melatonin 5 mg PO HS 30 Days tablet 12/14/20 [Rx] Multivitamins, Thera [Multivitamin (formulary)] 1 each PO DAILY 30 Days tab 12/14/20 [Rx] Pantoprazole [Protonix] 40 mg PO DAILY@0730 30 Days 12/14/20 [Rx] Sennosides-Docusate Sodium [Senokot-S] 1 each PO BID 30 Days tab 12/14/20 [Rx] Sertraline [Zoloft] 100 mg PO HS 30 Days tab 12/14/20 [Rx] Thiamine [Vitamin B-1] 100 mg PO DAILY 30 Days tab 12/14/20 [Rx] cloZAPine [Clozaril] 50 mg PO DAILY 30 Days tab 12/14/20 [Rx] cloZAPine [Clozaril] 125 mg PO HS 30 Days tab 12/14/20 [Rx] Follow up Appointment(s)/Referral(s): [facility] [Outside] - 12/17/20 1:00 pm (12/17/20 @ 1pm with Kayla Salas at [facility] office 12/20/20 @ [address] Goldman at [facility] office ) Sonia Echeverria MD [Primary Care Provider] - 1-2 days Activity/Diet/Wound Care/Special Instructions: Activity and diet as tolerated. Avoid the use of street drugs and alcohol. Take all medications as prescribed. When you are in need of refills on your medications please contact your medical provider and/or outpatient psychiatrist to have this done. Please go to scheduled outpatient appointment for aftercare treatment. If symptoms return or become worse, call the crisis line at and/or go to the nearest emergency room for evaluation. Discharge Disposition: HOME SELF-CARE
== END 2020-12-14 11:05 | disposition home or self-care (01) | DRG 885 ==
LOC: EC 12:41 → 3MHU 18:02
PROVIDERS: ADMIT Psychiatry & Neurology Psychiatry; ATTEND Psychiatry & Neurology Psychiatry
DX: F20.9 Schizophrenia, unspecified (principal); E03.9 Hypothyroidism, unspecified; F41.9 Anxiety disorder, unspecified; G47.00 Insomnia, unspecified; I10 Essential (primary) hypertension; Z79.82 Long term (current) use of aspirin; Z79.890 Hormone replacement therapy; Z79.899 Other long term (current) drug therapy; Z82.49 Family history of ischemic heart disease and other diseases of the circulatory system; Z82.62 Family history of osteoporosis; Z86.73 Personal history of transient ischemic attack (TIA), and cerebral infarction without residual deficits; Z90.710 Acquired absence of both cervix and uterus; K21.9 Gastro-esophageal reflux disease without esophagitis; Z88.6 Allergy status to analgesic agent; Z88.0 Allergy status to penicillin; Z90.89 Acquired absence of other organs; Z60.2 Problems related to living alone; R45.1 Restlessness and agitation; Z81.8 Family history of other mental and behavioral disorders
CPT/HCPCS: 36415; 80048; 80061; 80076; 80159; 80320; 81001; 83036; 84443; 85025; 87086; 87635; 93005; 96372; 99285

== ENCOUNTER 2021-01-16 13:28 | Emergency (ER) | payer MEDICARE, MEDICAID ==
[2021-01-16 13:48] VITALS: TEMP 98.6
[2021-01-16] MEDS ORDERED: SODIUM CHLORIDE 0.9% 1,000 ML IV ONE (13:51)
[2021-01-16] MEDS ORDERED: NALOXONE 0.4 MG/ML 1 ML VIAL IVP STA (13:52)
--- NOTE | 2021-01-16 14:00 | ED ---
Altered Mental Status HPI - General Chief Complaint: Altered Mental Status Stated Complaint: AMS Time Seen by Provider: 01/16/21 13:28 Source: family, EMS, RN notes reviewed, old records reviewed Mode of arrival: EMS Limitations: altered mental status - History of Present Illness Initial Comments: Is a 65-year-old female with a history of schizophrenia hypertension GERD history of CVA in the past UTI thyroid disorder and a prior history of dystonia who was brought in from her care facility for altered mental status and decreased responsiveness no trauma reported no fevers chills nausea vomiting sweats or other symptoms of focal deficits reported no other complaints or modifying factors MD Complaint: altered mental status - Related Data Home Medications Medication Instructions Recorded Confirmed Chlorpheniramine Maleate 4 mg PO DAILY PRN 01/16/21 01/16/21 [Chlor-Trimeton] Cholecalciferol (Vitamin D3) 125 mcg PO DAILY 01/16/21 01/16/21 [Vitamin D3 (5000 Iu)] Cranberry Concentrate [id number] 1 cap PO DAILY 01/16/21 01/16/21 Denta 5000 Plus Dental Cream 1 applic PO BID 01/16/21 01/16/21 Furosemide [Lasix] 20 mg PO DAILY PRN 01/16/21 01/16/21 Ginkgo Biloba [place] Extract [Ginkgo] 120 mg PO DAILY 01/16/21 01/16/21 Levothyroxine Sodium [Synthroid] 75 mcg PO DAILY 01/16/21 01/16/21 Losartan [Cozaar] 50 mg PO DAILY 01/16/21 01/16/21 Multivitamins, Thera [Multivitamin 1 tab PO DAILY 01/16/21 01/16/21 (formulary)] Pantoprazole [Protonix] 40 mg PO DAILY 01/16/21 01/16/21 Sertraline [Zoloft] 100 mg PO DAILY 01/16/21 01/16/21 Vitamin E 400 unit PO SUMOTUTHFR 01/16/21 01/16/21 cloZAPine [Clozaril] 25 mg PO DAILY 01/16/21 01/16/21 cloZAPine [Clozaril] 150 mg PO HS 01/16/21 01/16/21 Previous Rx's Medication Instructions Recorded Aspirin 81 mg PO DAILY 30 Days chew 12/14/20 Folic Acid 1 mg PO DAILY 30 Days tab 02/26/21 Melatonin 5 mg PO HS 30 Days tablet 12/14/20 Thiamine [Vitamin B-1] 100 mg PO DAILY 30 Days tab 12/14/20 Allergies Allergy/AdvReac Type Severity Reaction Status Date / Time aspirin Allergy Unknown Verified 01/16/21 14:43 Penicillins Allergy Unknown Verified 01/16/21 14:43 Review of Systems ROS Statement: Those systems with pertinent positive or pertinent negative responses have been documented in the HPI. ROS Other: All systems not noted in ROS Statement are negative. Limitations: ROS unobtainable due to patients medical condition Past Medical History Past Medical History: CVA/TIA, GERD/Reflux, Hypertension, Osteoarthritis (OA), Thyroid Disorder Additional Past Medical History / Comment(s): Schizophrenia. History of Any Multi-Drug Resistant Organisms: None Reported Past Surgical History: Hernia Repair, Hysterectomy, Tonsillectomy Past Psychological History: Schizophrenia Smoking Status: Unknown if ever smoked Past Alcohol Use History: None Reported Past Drug Use History: None Reported - Past Family History Mother Family Medical History: Cancer Additional Family Medical History / Comment(s): Osteoporosis Sister(s) Family Medical History: Cancer Additional Family Medical History / Comment(s): 2 of 4 with breast Father Family Medical History: Myocardial Infarction ([place]) Additional Family Medical History / Comment(s): Paternal aunt and cousin had schizophrenia General Exam - General Exam Comments Initial Comments: This is a well-developed well-nourished female who is not responsive to verbal but does move her extremities and does track with her eyes. Limitations: altered mental status General appearance: in no apparent distress, lethargic Head exam: Present: atraumatic, normocephalic, normal inspection Eye exam: Present: normal appearance, PERRL, EOMI. Absent: scleral icterus, conjunctival injection, periorbital swelling Pupils: Present: other (Pupils are pinpoint bili reactive) ENT exam: Present: normal exam, mucous membranes moist Neck exam: Present: normal inspection. Absent: tenderness, meningismus, lymphadenopathy Respiratory exam: Present: normal lung sounds bilaterally. Absent: respiratory distress, wheezes, rales, rhonchi, stridor Cardiovascular Exam: Present: regular rate, normal rhythm, normal heart sounds. Absent: systolic murmur, diastolic murmur, rubs, gallop, clicks GI/Abdominal exam: Present: soft, normal bowel sounds. Absent: distended, tenderness, guarding, rebound, rigid Extremities exam: Present: normal inspection, full ROM, normal capillary refill. Absent: tenderness, pedal edema, joint swelling, calf tenderness Back exam: Present: normal inspection Neurological exam: Present: alert, altered, CN II-XII intact, motor sensory deficit Psychiatric exam: Present: flat affect, other (Unable to fully evaluate) Skin exam: Present: warm, dry, intact, normal color. Absent: rash Course Vital Signs 01/16/21 01/16/21 01/16/21 13:32 13:57 14:02 Temperature 98.6 F Pulse Rate 82 79 Respiratory 16 16 10 L Rate Blood Pressure 152/87 152/87 O2 Sat by Pulse 97 97 Oximetry 01/16/21 01/16/21 01/16/21 14:10 14:20 14:30 Temperature Pulse Rate 75 Respiratory 14 Rate Blood Pressure 140/90 140/90 140/90 O2 Sat by Pulse 97 Oximetry 01/16/21 01/16/21 01/16/21 14:40 14:50 15:00 Temperature Pulse Rate 70 68 73 Respiratory 16 16 11 L Rate Blood Pressure 139/82 139/82 O2 Sat by Pulse 99 99 91 L Oximetry - Reevaluation(s) Reevaluation #1: 01/16/21 18:38 Reevaluation patient was much more responsive. Medical Decision Making - Medical Decision Making The patient was evaluated by the psychiatric service after being medically cleared is not currently candidate for inpatient treatment she does however have a scheduled appointment tomorrow with her psychiatrist. She will be discharged with - Lab Data Result diagrams: 01/16/21 13:53 01/16/21 13:53 Lab Results 01/16/21 01/16/21 01/16/21 Range/Units 13:53 13:53 13:53 WBC 7.0 (3.8-10.6) k/uL RBC 4.21 (3.80-5.40) m/uL Hgb 12.7 (11.4-16.0) gm/dL Hct 37.2 (34.0-46.0) % MCV 88.3 (80.0-100.0) fL MCH 30.1 (25.0-35.0) pg MCHC 34.1 (31.0-37.0) g/dL RDW 13.9 (11.5-15.5) % Plt Count 222 (150-450) k/uL MPV 8.5 Neutrophils % 75 % Lymphocytes % 18 % Monocytes % 6 % Eosinophils % 1 % Basophils % 0 % Neutrophils # 5.3 (1.3-7.7) k/uL Lymphocytes # 1.3 (1.0-4.8) k/uL Monocytes # 0.4 (0-1.0) k/uL Eosinophils # 0.0 (0-0.7) k/uL Basophils # 0.0 (0-0.2) k/uL PT 10.3 (9.0-12.0) sec INR 1.0 (<1.2) APTT 19.8 L (22.0-30.0) sec Sodium 139 (137-145) mmol/L Potassium 4.2 (3.5-5.1) mmol/L Chloride 103 (98-107) mmol/L Carbon Dioxide 27 (22-30) mmol/L Anion Gap 9 mmol/L BUN 13 (7-17) mg/dL Creatinine 0.85 (0.52-1.04) mg/dL Est GFR (CKD-EPI)AfAm 84 (>60 ml/min/1.73 sqM) Est GFR (CKD-EPI)NonAf 72 (>60 ml/min/1.73 sqM) Glucose 168 H (74-99) mg/dL Calcium 9.3 (8.4-10.2) mg/dL Magnesium 1.9 (1.6-2.3) mg/dL Total Bilirubin 0.7 (0.2-1.3) mg/dL AST 20 (14-36) U/L ALT 15 (4-34) U/L Alkaline Phosphatase 103 (38-126) U/L Ammonia (<30) umol/L Creatine Kinase 38 (30-135) U/L Troponin I (0.000-0.034) ng/mL Total Protein 7.0 (6.3-8.2) g/dL Albumin 4.0 (3.5-5.0) g/dL Urine Color Urine Appearance (Clear) Urine pH (5.0-8.0) Ur Specific [place] (1.001-1.035) Urine Protein (Negative) Urine Glucose (UA) (Negative) Urine Ketones (Negative) Urine Blood (Negative) Urine Nitrite (Negative) Urine Bilirubin (Negative) Urine Urobilinogen (<2.0) mg/dL Ur Leukocyte Esterase (Negative) Urine Opiates Screen (NotDetected) Ur Oxycodone Screen (NotDetected) Urine Methadone Screen (NotDetected) Ur Propoxyphene Screen (NotDetected) Ur Barbiturates Screen (NotDetected) U Tricyclic Antidepress (NotDetected) Ur Phencyclidine Scrn (NotDetected) Ur Amphetamines Screen (NotDetected) U Methamphetamines Scrn (NotDetected) U Benzodiazepines Scrn (NotDetected) Urine Cocaine Screen (NotDetected) U Marijuana (THC) Screen (NotDetected) Serum Alcohol <10 mg/dL 01/16/21 01/16/21 01/16/21 Range/Units 13:53 13:54 14:56 WBC (3.8-10.6) k/uL RBC (3.80-5.40) m/uL Hgb (11.4-16.0) gm/dL Hct (34.0-46.0) % MCV (80.0-100.0) fL MCH (25.0-35.0) pg MCHC (31.0-37.0) g/dL RDW (11.5-15.5) % Plt Count (150-450) k/uL MPV Neutrophils % % Lymphocytes % % Monocytes % % Eosinophils % % Basophils % % Neutrophils # (1.3-7.7) k/uL Lymphocytes # (1.0-4.8) k/uL Monocytes # (0-1.0) k/uL Eosinophils # (0-0.7) k/uL Basophils # (0-0.2) k/uL PT (9.0-12.0) sec INR (<1.2) APTT (22.0-30.0) sec Sodium (137-145) mmol/L Potassium (3.5-5.1) mmol/L Chloride (98-107) mmol/L Carbon Dioxide (22-30) mmol/L Anion Gap mmol/L BUN (7-17) mg/dL Creatinine (0.52-1.04) mg/dL Est GFR (CKD-EPI)AfAm (>60 ml/min/1.73 sqM) Est GFR (CKD-EPI)NonAf (>60 ml/min/1.73 sqM) Glucose (74-99) mg/dL Calcium (8.4-10.2) mg/dL Magnesium (1.6-2.3) mg/dL Total Bilirubin (0.2-1.3) mg/dL AST (14-36) U/L ALT (4-34) U/L Alkaline Phosphatase (38-126) U/L Ammonia <9 (<30) umol/L Creatine Kinase (30-135) U/L Troponin I <0.012 (0.000-0.034) ng/mL Total Protein (6.3-8.2) g/dL Albumin (3.5-5.0) g/dL Urine Color Yellow Urine Appearance Clear (Clear) Urine pH 7.0 (5.0-8.0) Ur Specific [place] 1.011 (1.001-1.035) Urine Protein Negative (Negative) Urine Glucose (UA) Negative (Negative) Urine Ketones Negative (Negative) Urine Blood Negative (Negative) Urine Nitrite Negative (Negative) Urine Bilirubin Negative (Negative) Urine Urobilinogen <2.0 (<2.0) mg/dL Ur Leukocyte Esterase Negative (Negative) Urine Opiates Screen Not Detected (NotDetected) Ur Oxycodone Screen Not Detected (NotDetected) Urine Methadone Screen Not Detected (NotDetected) Ur Propoxyphene Screen Not Detected (NotDetected) Ur Barbiturates Screen Not Detected (NotDetected) U Tricyclic Antidepress Not Detected (NotDetected) Ur Phencyclidine Scrn Not Detected (NotDetected) Ur Amphetamines Screen Not Detected (NotDetected) U Methamphetamines Scrn Not Detected (NotDetected) U Benzodiazepines Scrn Not Detected (NotDetected) Urine Cocaine Screen Not Detected (NotDetected) U Marijuana (THC) Screen Not Detected (NotDetected) Serum Alcohol mg/dL - EKG Data -: EKG Interpreted by Me EKG Comments: Sinus rhythm first-degree AV block rate 82 AR interval 214 QRS 134 QT since QTC 436/509 and bundle-branch block with anterior fascicular block pulses criteria for LVH nonspecific inferior configuration - Radiology Data Radiology results: report reviewed (Imaging reviewed no acute findings.), image reviewed Disposition Clinical Impression: Schizophrenia Disposition: HOME SELF-CARE Condition: Good Instructions (If sedation given, give patient instructions): Schizophrenia (ED) Additional Instructions: Keep appointment tomorrow as scheduled Is patient prescribed a controlled substance at d/c from ED?: No Referrals: Gabo Goldman MD [Primary Care Provider] - 1-2 days
[2021-01-16 14:12] LABS: Basophils % (A) 0 %; Eosinophils % (A) 1 %; HCT 37.2 % (34.0-46.0); HGB 12.7 gm/dL (11.4-16.0); Lymphocytes # (A) 1.3 k/uL (1.0-4.8); Lymphocytes % (A) 18 %; MCH 30.1 pg (25.0-35.0); MCHC 34.1 g/dL (31.0-37.0); MCV 88.3 fL (80.0-100.0); Mean Platelet Volume 8.5; Monocytes # (A) 0.4 k/uL (0-1.0); Monocytes % (A) 6 %; Neutrophils # (A) 5.3 k/uL (1.3-7.7); Neutrophils % (A) 75 %; Platelet Count 222 k/uL (150-450); RBC 4.21 m/uL (3.80-5.40); RDW 13.9 % (11.5-15.5)
[2021-01-16 14:26] LABS: ALT 15 U/L (4-34); AST 20 U/L (14-36); African American GFR (CKD) 84 (>60 ml/min/1.73 sqM); Alcohol <10 mg/dL; Alkaline Phosphatase 103 U/L (38-126); Anion Gap 9 mmol/L; Blood Urea Nitrogen 13 mg/dL (7-17); Calcium 9.3 mg/dL (8.4-10.2); Carbon Dioxide 27 mmol/L (22-30); Chloride 103 mmol/L (98-107); Creatine Kinase 38 U/L (30-135); Glucose 168 mg/dL (74-99); Magnesium 1.9 mg/dL (1.6-2.3); Non-African American GFR(CKD) 72 (>60 ml/min/1.73 sqM); Potassium 4.2 mmol/L (3.5-5.1); Sodium 139 mmol/L (137-145); Total Bilirubin 0.7 mg/dL (0.2-1.3)
[2021-01-16 14:30] LABS: Prothrombin Time 10.3 sec (9.0-12.0)
[2021-01-16 14:37] LABS: Partial Thromboplastin Time 19.8 sec (22.0-30.0)
--- NOTE | 2021-01-16 14:52 | CT ---
EXAMINATION TYPE: CT brain wo con DATE OF EXAM: 01/16/2021 COMPARISON: 04/10/2019 HISTORY: Altered mental status CT DLP: 1180.[address] of the brain was performed. The ventricles, basal cisterns and sulci overlying the cerebral convexities demonstrate mild enlargem ent. There is no evidence for intracranial hemorrhage or sulcal effacement. There is decreased attenuation about the periventricular white matter and deep white matter of both c erebral hemispheres, compatible with chronic small vessel ischemia. Differential diagnosis does inclu de demyelination. No mass effects are seen.No midline shift. Osseous calvarium is intact. If symptoms persist consider MRI. IMPRESSION: 1. Age related atrophic and chronic small vessel ischemic change without acute intracranial process s een at this time.
--- NOTE | 2021-01-16 14:53 | XR ---
EXAMINATION TYPE: XR chest 2V DATE OF EXAM: 01/16/2021 COMPARISON: 05/06/2020 INDICATION: Altered mental status TECHNIQUE: Frontal and lateral views of the chest are obtained. FINDINGS: The heart size is mildly prominent. The pulmonary vasculature is normal. The lungs are clear. IMPRESSION: 1. No acute pulmonary process. 2. Mild cardiomegaly
[2021-01-16 15:16] LABS: Appearance,Urine Clear (Clear); Bilirubin,Urine Negative (Negative); Blood,Urine Negative (Negative); Color,Urine Yellow; Glucose,Urine (UA) Negative (Negative); Ketones,Urine Negative (Negative); Leukocyte Esterase,Urine Negative (Negative); Nitrite,Urine Negative (Negative); Protein,Urine Negative (Negative); Specific Gravity,Urine 1.011 (1.001-1.035); Urobilinogen,Urine <2.0 mg/dL (<2.0)
[2021-01-16 15:37] LABS: Amphetamine Screen,Urine Not Detected (NotDetected); Barbiturate Screen,Urine Not Detected (NotDetected); Benzodiazepines Screen,Urine Not Detected (NotDetected); Cocaine Screen,Urine Not Detected (NotDetected); Methadone Screen, Urine Not Detected (NotDetected); Opiate Screen,Urine Not Detected (NotDetected); Oxycodone Screen, Urine Not Detected (NotDetected); Phencyclidine Screen,Urine Not Detected (NotDetected); Tricyclic Antidepressant,Urine Not Detected (NotDetected); Urn Cannabinoid Scrn Not Detected (NotDetected)
[2021-01-16 18:50] VITALS: BP 140/78; PULSE 81; RESP 18
== END 2021-01-16 18:55 | disposition home or self-care (01) ==
LOC: EC 13:28
DX: F20.9 Schizophrenia, unspecified (principal); I10 Essential (primary) hypertension; K21.9 Gastro-esophageal reflux disease without esophagitis; M19.90 Unspecified osteoarthritis, unspecified site; Z79.82 Long term (current) use of aspirin; Z79.899 Other long term (current) drug therapy; Z86.73 Personal history of transient ischemic attack (TIA), and cerebral infarction without residual deficits; Z88.0 Allergy status to penicillin
CPT/HCPCS: 99285; 96374; 36415; 93005; 80053; 82140; 82550; 83735; 84484; 85025; 85610; 85730; 81003; 80306; 71046; 70450; G0480; J2310; 80320

== ENCOUNTER 2021-01-17 11:40 | Emergency (ER) | payer MEDICARE, MEDICAID ==
[2021-01-17 12:10] VITALS: RESP 18; TEMP 98.2
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
[2021-01-17 14:28] LABS: Amphetamine Screen,Urine Not Detected (NotDetected); Barbiturate Screen,Urine Not Detected (NotDetected); Benzodiazepines Screen,Urine Not Detected (NotDetected); Cocaine Screen,Urine Not Detected (NotDetected); Methadone Screen, Urine Not Detected (NotDetected); Opiate Screen,Urine Not Detected (NotDetected); Oxycodone Screen, Urine Not Detected (NotDetected); Phencyclidine Screen,Urine Not Detected (NotDetected); Tricyclic Antidepressant,Urine Not Detected (NotDetected); Urn Cannabinoid Scrn Not Detected (NotDetected)
[2021-01-17 16:05] LABS: Basophils % (A) 0 %; Eosinophils % (A) 0 %; HCT 37.1 % (34.0-46.0); HGB 12.7 gm/dL (11.4-16.0); Lymphocytes # (A) 1.7 k/uL (1.0-4.8); Lymphocytes % (A) 21 %; MCH 30.2 pg (25.0-35.0); MCHC 34.2 g/dL (31.0-37.0); MCV 88.2 fL (80.0-100.0); Monocytes # (A) 0.4 k/uL (0-1.0); Monocytes % (A) 5 %; Neutrophils # (A) 5.7 k/uL (1.3-7.7); Neutrophils % (A) 73 %; Platelet Count 232 k/uL (150-450); RBC 4.21 m/uL (3.80-5.40); RDW 13.8 % (11.5-15.5); WBC 7.8 k/uL (3.8-10.6)
[2021-01-17 16:08] LABS: ALT 15 U/L (4-34); AST 23 U/L (14-36); African American GFR (CKD) >90 (>60 ml/min/1.73 sqM); Albumin 4.2 g/dL (3.5-5.0); Alcohol <10 mg/dL; Alkaline Phosphatase 104 U/L (38-126); Anion Gap 8 mmol/L; Blood Urea Nitrogen 14 mg/dL (7-17); Calcium 9.2 mg/dL (8.4-10.2); Carbon Dioxide 27 mmol/L (22-30); Chloride 106 mmol/L (98-107); Glucose 139 mg/dL (74-99); Non-African American GFR(CKD) >90 (>60 ml/min/1.73 sqM); Potassium 3.9 mmol/L (3.5-5.1); Sodium 141 mmol/L (137-145); Total Bilirubin 0.8 mg/dL (0.2-1.3); Total Protein 7.3 g/dL (6.3-8.2)
[2021-01-17 23:29] VITALS: BP 131/89; PULSE 85
== END 2021-01-18 01:48 ==
LOC: EC 11:40
DX: F20.9 Schizophrenia, unspecified (principal); K21.9 Gastro-esophageal reflux disease without esophagitis; M19.90 Unspecified osteoarthritis, unspecified site; I10 Essential (primary) hypertension; Z86.73 Personal history of transient ischemic attack (TIA), and cerebral infarction without residual deficits
CPT/HCPCS: 36415; 80053; 85025; 80306; 87635; 99283; G0480; 80320; 93005

== ENCOUNTER 2023-04-07 10:55 | Emergency (ER) | payer MEDICARE, OTHER ==
[2023-04-07 11:06] VITALS: BP 133/77; PULSE 64; RESP 18; TEMP 97.7
[2023-04-07] MEDS ORDERED: SODIUM CHLORIDE 0.9% 1,000 ML IV STA (11:08)
[2023-04-07 11:10] LABS: Glucose,Whole Blood 120 mg/dL (70-110)
--- NOTE | 2023-04-07 12:09 | ED ---
General Adult HPI - General Chief complaint: Syncope Stated complaint: syncope Time Seen by Provider: 04/07/23 10:56 Source: patient, RN notes reviewed, old records reviewed Mode of arrival: EMS Limitations: no limitations - History of Present Illness Initial comments: 68 yo female presenting with near syncopal episode. Patient was at the pace program, she had felt somewhat lightheaded and complaint of headache. Orthostatic vitals were attempted and when the patient stood she became very lightheaded and momentarily passed out. IV was established and IV fluid was administered. She states that she's had some medication adjustments and is currently on losartan she does not know the exact changed her medications but states it was to her blood pressure medications. She reports of bilateral headache which is been present for the past several months. She denies fever. Denies vomiting. Denies chest pain or abdominal pain. - Related Data Home Medications Medication Instructions Recorded Confirmed Chlorpheniramine Maleate 4 mg PO DAILY PRN 01/16/21 04/07/23 [Chlor-Trimeton] Cholecalciferol (Vitamin D3) 125 mcg PO DAILY 01/16/21 04/07/23 [Vitamin D3 (5000 Iu)] Furosemide [Lasix] 20 mg PO DAILY PRN 01/16/21 04/07/23 Levothyroxine Sodium [Synthroid] 75 mcg PO HS 01/16/21 04/07/23 Losartan [Cozaar] 50 mg PO DAILY 01/16/21 04/07/23 Pantoprazole [Protonix] 40 mg PO DAILY 01/16/21 04/07/23 Vitamin E 400 unit PO DAILY 01/16/21 04/07/23 cloZAPine [Clozaril] 200 mg PO HS 01/16/21 04/07/23 ARIPiprazole [Abilify] 5 mg PO HS 04/07/23 04/07/23 Acetaminophen Tab [Tylenol] 650 mg PO Q4H PRN 04/07/23 04/07/23 Cranberry 4200 Mg 4,200 mg PO DAILY 04/07/23 04/07/23 Folic Acid 0.4 mg PO DAILY 04/07/23 04/07/23 Vitamin B Complex With Vitamin C 1 tab PO HS 04/07/23 04/07/23 Zinc Gluconate [Zinc] 50 mg PO DAILY 04/07/23 04/07/23 bisacodyL [Dulcolax] 5 mg PO DAILY PRN 04/07/23 04/07/23 fluvoxaMINE [Luvox] 50 mg PO DAILY 04/07/23 04/07/23 hydrOXYzine HCL [Atarax] 25 mg PO HS 04/07/23 04/07/23 polyethylene glycoL 3350 [Miralax] 17 gm PO DAILY PRN 04/07/23 04/07/23 Previous Rx's Medication Instructions Recorded Aspirin 81 mg PO DAILY 30 Days chew 12/14/20 Melatonin 5 mg PO HS 30 Days tablet 12/14/20 Allergies Allergy/AdvReac Type Severity Reaction Status Date / Time aspirin Allergy Unknown Verified 04/07/23 11:50 Penicillins Allergy Unknown Verified 04/07/23 11:50 Review of Systems ROS Statement: Those systems with pertinent positive or pertinent negative responses have been documented in the HPI. ROS Other: All systems not noted in ROS Statement are negative. Past Medical History Past Medical History: CVA/TIA, GERD/Reflux, Hypertension, Osteoarthritis (OA), Thyroid Disorder Additional Past Medical History / Comment(s): Schizophrenia. History of Any Multi-Drug Resistant Organisms: ESBL Date of last positivie culture/infection: 05/15/22 ESBL E.coli MDRO Source:: Urine Past Surgical History: Hernia Repair, Hysterectomy, Tonsillectomy Past Psychological History: Schizophrenia Smoking Status: Unknown if ever smoked Past Alcohol Use History: None Reported Past Drug Use History: None Reported - Past Family History Mother Family Medical History: Cancer Additional Family Medical History / Comment(s): Osteoporosis Sister(s) Family Medical History: Cancer Additional Family Medical History / Comment(s): 2 of 4 with breast Father Family Medical History: Myocardial Infarction ([place]) Additional Family Medical History / Comment(s): Paternal aunt and cousin had schizophrenia General Exam Limitations: no limitations General appearance: alert, in no apparent distress Head exam: Present: atraumatic, normocephalic Eye exam: Present: normal appearance, PERRL ENT exam: Present: mucous membranes dry Neck exam: Present: normal inspection. Absent: tenderness, meningismus Respiratory exam: Present: normal lung sounds bilaterally. Absent: respiratory distress, wheezes Cardiovascular Exam: Present: regular rate, normal rhythm GI/Abdominal exam: Present: soft. Absent: distended, tenderness, guarding Extremities exam: Present: normal inspection, normal capillary refill. Absent: pedal edema Neurological exam: Present: alert, oriented X3, CN II-XII intact. Absent: motor sensory deficit Psychiatric exam: Present: normal affect, normal mood Skin exam: Present: warm, dry, intact. Absent: cyanosis, diaphoretic Course Vital Signs 04/07/23 10:55 Temperature 97.7 F Pulse Rate 64 Respiratory 18 Rate Blood Pressure 133/77 O2 Sat by Pulse 100 Oximetry Medical Decision Making - Medical Decision Making Was pt. sent in by a medical professional or institution (, PA, TREASURER, urgent care, hospital, or penitentiary...) When possible be specific @ -No Did you speak to anyone other than the patient for history (EMS, parent, family, police, friend...)? What history was obtained from this source @ -[Paramedics Did you review nursing and triage notes (agree or disagree)? Why? @ -I reviewed and agree with nursing and triage notes Were old charts reviewed (outside hosp., previous admission, EMS record, old EKG, old radiological studies, urgent care reports/EKG's, penitentiary records)? Report findings @ -No old charts were reviewed Differential Diagnosis (chest pain, altered mental status, abdominal pain women, abdominal pain men, vaginal bleeding, weakness, fever, dyspnea, syncope, headache, dizziness, GI bleed, back pain, seizure, CVA, palpatations, mental health, musculoskeletal)? @ -[Differential Syncope: Valvular disease, hypertrophic cardiomyopathy, pulmonary embolism, tamponade, tachycardia, bradycardia, VA, hypovolemia, hemorrhage, dissection, anemia, intracranial hemorrhage, seizure, hypoglycemia, carbon monoxide poisoning, this is not meant to be an all-inclusive list. EKG interpreted by me (3pts min.). @ -[EKG: Sinus rhythm with first-degree AV block right bundle branch block, left anterior fascicular block, ventricular rate of 64, [place] interval 243, QRS duration 164, QTC 467, no ST segment elevation X-rays interpreted by me (1pt min.). @ -[Negative for acute cardiopulmonary findings, questionable atelectasis CT interpreted by me (1pt min.). @ -Negative for intracranial hemorrhage or mass effect U/S interpreted by me (1pt. min.). @ -None done What testing was considered but not performed or refused? (CT, X-rays, U/S, labs)? Why? @ -None What meds were considered but not given or refused? Why? @ -None Did you discuss the management of the patient with other professionals (professionals i.e. , PA, TREASURER, lab, RT, psych nurse, psychologist social, plate gauger, teacher, probation and parole officer, correctional case manager)? Give summary @ -No Was smoking cessation discussed for >3mins.? @ -No Was critical care preformed (if so, how long)? @ -No Were there social determinants of health that impacted care today? How? (Homelessness, low income, unemployed, alcoholism, drug addiction, transportation, low edu. Level, literacy, decrease access to med. care, usp, rehab)? @ -No Was there de-escalation of care discussed even if they declined (Discuss DNR or withdrawal of care, Hospice)? DNR status @ -No What co-morbidities impacted this encounter? (DM, HTN, Smoking, COPD, CAD, Cancer, CVA, ARF, Chemo, Hep., AIDS, mental health diagnosis, sleep apnea, morbid obesity)? @ -[Hypertension Was patient admitted / discharged? Hospital course, mention meds given and route, prescriptions, significant lab abnormalities, going to OR and other pertinent info. @ -60-year-old female with near syncopal or brief syncopal episode and chief complaint headache which is been ongoing for several months. Patient's in sinus rhythm with an unchanged EKG compared to baseline. Symptoms did sound orthostatic in nature but patient being given IV fluid prior to arrival. Head CT, chest x-ray, laboratory testing is unremarkable. Patient reevaluated she states she feels significantly better without further lightheadedness, no chest pain, no palpitations. Patient stable for discharge at this time with strict return parameters and close outpatient follow-up. Undiagnosed new problem with uncertain prognosis? @ -No Drug Therapy requiring intensive monitoring for toxicity (Heparin, Nitro, Insulin, Cardizem)? @ -No Were any procedures done? @ -No Diagnosis/symptom? @ -[Near-syncope Acute, or Chronic, or Acute on Chronic? @ -[Acute Uncomplicated (without systemic symptoms) or Complicated (systemic symptoms)? @ -default Side effects of treatment? @ -No Exacerbation, Progression, or Severe Exacerbation? @ -No Poses a threat to life or bodily function? How? (Chest pain, [place], VA, pneumonia, PE, COPD, DKA, ARF, appy, cholecystitis, CVA, Diverticulitis, Homicidal, Suicidal, threat to staff... and all critical care pts) @ -[Yes Weakness, syncope - Lab Data Result diagrams: 04/07/23 12:00 04/07/23 12:00 Lab Results 04/07/23 04/07/23 04/07/23 Range/Units 11:08 12:00 12:00 WBC (3.8-10.6) k/uL RBC (3.80-5.40) m/uL Hgb (11.4-16.0) gm/dL Hct (34.0-46.0) % MCV (80.0-100.0) fL MCH (25.0-35.0) pg MCHC (31.0-37.0) g/dL RDW (11.5-15.5) % Plt Count (150-450) k/uL MPV Neutrophils % % Lymphocytes % % Monocytes % % Eosinophils % % Basophils % % Neutrophils # (1.3-7.7) k/uL Lymphocytes # (1.0-4.8) k/uL Monocytes # (0-1.0) k/uL Eosinophils # (0-0.7) k/uL Basophils # (0-0.2) k/uL PT (9.0-12.0) sec INR (<1.2) APTT (22.0-30.0) sec Sodium 142 (137-145) mmol/L Potassium 4.0 (3.5-5.1) mmol/L Chloride 109 H (98-107) mmol/L Carbon Dioxide 24 (22-30) mmol/L Anion Gap 9 mmol/L BUN 16 (7-17) mg/dL Creatinine 0.82 (0.52-1.04) mg/dL Est GFR (CKD-EPI)AfAm 85 (>60 ml/min/1.73 sqM) Est GFR (CKD-EPI)NonAf 74 (>60 ml/min/1.73 sqM) Glucose 116 H (74-99) mg/dL POC Glucose (mg/dL) 120 H (70-110) mg/dL POC Glu Glass Rolling Machine Operator ID Najera, Zi Calcium 8.8 (8.4-10.2) mg/dL Magnesium 1.9 (1.6-2.3) mg/dL Total Bilirubin 0.5 (0.2-1.3) mg/dL AST 32 (14-36) U/L ALT 46 H (4-34) U/L Alkaline Phosphatase 113 (38-126) U/L Troponin I <0.012 (0.000-0.034) ng/mL Total Protein 6.7 (6.3-8.2) g/dL Albumin 3.8 (3.5-5.0) g/dL 04/07/23 04/07/23 Range/Units 12:00 12:00 WBC 6.1 (3.8-10.6) k/uL RBC 3.90 (3.80-5.40) m/uL Hgb 11.8 (11.4-16.0) gm/dL Hct 35.2 (34.0-46.0) % MCV 90.3 (80.0-100.0) fL MCH 30.3 (25.0-35.0) pg MCHC 33.5 (31.0-37.0) g/dL RDW 13.4 (11.5-15.5) % Plt Count 222 (150-450) k/uL MPV 8.5 Neutrophils % 69 % Lymphocytes % 22 % Monocytes % 7 % Eosinophils % 1 % Basophils % 0 % Neutrophils # 4.2 (1.3-7.7) k/uL Lymphocytes # 1.4 (1.0-4.8) k/uL Monocytes # 0.4 (0-1.0) k/uL Eosinophils # 0.0 (0-0.7) k/uL Basophils # 0.0 (0-0.2) k/uL PT 10.4 (9.0-12.0) sec INR 1.0 (<1.2) APTT 22.9 (22.0-30.0) sec Sodium (137-145) mmol/L Potassium (3.5-5.1) mmol/L Chloride (98-107) mmol/L Carbon Dioxide (22-30) mmol/L Anion Gap mmol/L BUN (7-17) mg/dL Creatinine (0.52-1.04) mg/dL Est GFR (CKD-EPI)AfAm (>60 ml/min/1.73 sqM) Est GFR (CKD-EPI)NonAf (>60 ml/min/1.73 sqM) Glucose (74-99) mg/dL POC Glucose (mg/dL) (70-110) mg/dL POC Glu Glass Rolling Machine Operator ID Calcium (8.4-10.2) mg/dL Magnesium (1.6-2.3) mg/dL Total Bilirubin (0.2-1.3) mg/dL AST (14-36) U/L ALT (4-34) U/L Alkaline Phosphatase (38-126) U/L Troponin I (0.000-0.034) ng/mL Total Protein (6.3-8.2) g/dL Albumin (3.5-5.0) g/dL Disposition Clinical Impression: Dehydration, Near syncope Disposition: HOME SELF-CARE Condition: Fair Instructions (If sedation given, give patient instructions): Near Syncope (ED) Additional Instructions: Please follow up with her primary care provider. Is patient prescribed a controlled substance at d/c from ED?: No Referrals: None,Stated [Primary Care Provider] - 1-2 days Time of Disposition: 14:13
[2023-04-07 12:16] LABS: Basophils % (A) 0 %; Eosinophils % (A) 1 %; HCT 35.2 % (34.0-46.0); HGB 11.8 gm/dL (11.4-16.0); Lymphocytes # (A) 1.4 k/uL (1.0-4.8); Lymphocytes % (A) 22 %; MCH 30.3 pg (25.0-35.0); MCHC 33.5 g/dL (31.0-37.0); MCV 90.3 fL (80.0-100.0); Mean Platelet Volume 8.5; Monocytes # (A) 0.4 k/uL (0-1.0); Monocytes % (A) 7 %; Neutrophils # (A) 4.2 k/uL (1.3-7.7); Neutrophils % (A) 69 %; Platelet Count 222 k/uL (150-450); RDW 13.4 % (11.5-15.5); WBC 6.1 k/uL (3.8-10.6)
[2023-04-07 12:27] LABS: ALT 46 U/L (4-34); AST 32 U/L (14-36); African American GFR (CKD) 85 (>60 ml/min/1.73 sqM); Albumin 3.8 g/dL (3.5-5.0); Alkaline Phosphatase 113 U/L (38-126); Anion Gap 9 mmol/L; Blood Urea Nitrogen 16 mg/dL (7-17); Calcium 8.8 mg/dL (8.4-10.2); Carbon Dioxide 24 mmol/L (22-30); Chloride 109 mmol/L (98-107); Glucose 116 mg/dL (74-99); Magnesium 1.9 mg/dL (1.6-2.3); Non-African American GFR(CKD) 74 (>60 ml/min/1.73 sqM); Sodium 142 mmol/L (137-145); Total Bilirubin 0.5 mg/dL (0.2-1.3); Total Protein 6.7 g/dL (6.3-8.2)
[2023-04-07 12:29] LABS: Partial Thromboplastin Time 22.9 sec (22.0-30.0); Prothrombin Time 10.4 sec (9.0-12.0)
--- NOTE | 2023-04-07 13:00 | XR ---
EXAMINATION TYPE: XR chest 2V DATE OF EXAM: 04/07/2023 COMPARISON: 01/16/2021 HISTORY: 68-year-old female syncope TECHNIQUE: AP and lateral views FINDINGS: Heart upper limits of normal in size. Interstitial prominence probably a product of magnification due to portable technique and large body habitus. Some focal peripheral left basilar opacity. No pleural effusion. IMPRESSION: Borderline heart size. There is some focal patchy peripheral left basilar atelectasis or early infilt rate.
--- NOTE | 2023-04-07 13:29 | CT ---
EXAMINATION TYPE: CT brain wo con CT DLP: 1176.4 mGycm, Automated exposure control for dose reduction was used. DATE OF EXAM: 04/07/2023 1:20 PM COMPARISON: 01/16/2021. CLINICAL INDICATION:Female, 68 years old with history of syncope/GREGORIO, syncope TECHNIQUE: Brain: Axial CT images of the brain were obtained with coronal and sagittal reformats created and rev iewed. Contrast used: None. Oral contrast used: None. FINDINGS: Brain: Extra-axial spaces: No abnormal extra-axial fluid collections. Ventricular system: Dilatation in proportion to cerebral atrophy. Cerebral parenchyma: Cerebral atrophy. No acute intraparenchymal hemorrhage or mass effect. The sumner -white junction is well differentiated. Scattered hypoattenuating areas are seen within the white mat ter. Cerebellum: Unremarkable. Mass effect: No evidence of midline shift. Intracranial vasculature: Atherosclerotic calcifications of the intracranial vessels. Soft tissues: Normal. Calvarium/osseous structures: No depressed skull fracture. Paranasal sinuses and mastoid air cells: Mild scattered paranasal sinus disease. Visualized orbits: Orbital contents are intact. IMPRESSION: 1. No acute intracranial process. 2. Nonspecific white matter changes, likely secondary to chronic small vessel ischemic disease.
== END 2023-04-07 14:55 | disposition home or self-care (01) ==
LOC: EC 10:55
DX: R55 Syncope and collapse (principal); E86.0 Dehydration; I10 Essential (primary) hypertension; K21.9 Gastro-esophageal reflux disease without esophagitis; M19.90 Unspecified osteoarthritis, unspecified site; E07.9 Disorder of thyroid, unspecified; Z79.82 Long term (current) use of aspirin; Z79.890 Hormone replacement therapy; Z79.899 Other long term (current) drug therapy; Z88.0 Allergy status to penicillin; Z88.6 Allergy status to analgesic agent
CPT/HCPCS: 36415; 70450; 71046; 80053; 83735; 84484; 85025; 85610; 85730; 93005; 96360; 99285

== ENCOUNTER → 2023-04-29 | Outpatient (CLI) | payer OTHER ==
--- NOTE | 2023-04-29 12:13 | MM ---
Reason for Exam: Screening (asymptomatic). Last mammogram was performed 4 year(s) and 8 month(s) ago. Patient History: Menarche at age 12. Patient has no children. Left ovary removed at age 56. Right ovary removed at age 56. Hysterectomy at age 56. Postmenopausal. Sister had breast cancer. Mother had breast cancer. Risk Values: Mary 5 year model risk: 5.9%. NCI Lifetime model risk: 18.0%. Prior Study Comparison: 02/14/2009 Bilateral Screening Mammogram, [facility]. 02/20/2010 Bilateral Screening Mammogram, [facility]. 08/26/2018 Bilateral Screening Mammogram, [facility]. Tissue Density: The breast tissue is heterogeneously dense. This may lower the sensitivity of mammography. Findings: Analyzed By CAD. Focal asymmetry right breast lateral aspect cc view 9.1 cm from nipple measuring up to 14 mm and on MLO view slightly superior and posterior nipple line. Left breast: There is no suspicious group of microcalcifications or new suspicious mass in either breast. Overall Assessment: Incomplete: need additional imaging evaluation, BI-RAD 0 Management: Diagnostic Mammogram of the right breast. Diagnostic Breast Ultrasound of the right breast. [facility] will attempt to contact patient to return for supplemental views and ultrasound if indicated. Patient should continue monthly self-breast exams. A clinical breast exam by your physician is recommended on an annual basis. This exam should not preclude additional follow-up of suspicious palpable abnormalities. Note on Mary scores and lifetime risk: 1. A Mary score greater than 3% is considered moderate risk. If this is the case, consider specialist referral to assess eligibility for a risk reducing agent. 2. If overall lifetime risk for the development of breast cancer is 20% or higher, the patient may qualify for future screening with alternating mammogram and breast MRI. Electronically signed and approved by: Fred Hurst DO
--- NOTE | 2023-04-30 07:44 | BD ---
EXAMINATION TYPE: Axial Bone Density DATE OF EXAM: 04/29/2023 CLINICAL HISTORY: 68 years old Female. ICD-10 CODE: Z13.820 ENCOUNTER FOR SCREENING FOR OSTEOPOROSIS Height: 5 ft 6 in Weight: 195 FRAX RISK QUESTIONS: Alcohol (3 or more units per day): no Family History (Parent hip fracture): no Glucocorticoids (More than 3mos): no (Ex: prednisone, prednisolone, methylprednisolone, dexamethasone, and hydrocortisone). History of Fracture in Adulthood: no Secondary Osteoporosis: 1. Type 1 Diabetes: no 2. Hyperthyroidism: no 3. Menopause before 45: no 4. Malnutrition: no 5. Chronic liver disease: no Rheumatoid Arthritis: no Current Tobacco Use: no RISK FACTORS HISTORY OF: Surgery to Spine/Hip(right/left)/Wrist (right/left): no Family History of Osteoporosis: yes Active: yes Diet low in dairy products/other sources of calcium: no Postmenopausal woman: yes Take estrogen and/or progesterone medications: none now Lost more than 2 inches in height since high school: no Frequent falls: no Poor Health: good Hyperparathyroidism: no Adrenal Insufficiency: no MEDICATIONS: Thyroid Medications: yes Which medication: levothyroxine How Long: sev years Additional Medications: levothyroxine, fluvoxamine, pantoprazole, folic acid, clozapine, aripiprazole , terbinafine, hydroxyz/hcl, Additional History: EXAM MEASUREMENTS: Bone mineral densitometry was performed using the [employer] System. Bone mineral density as measured about the Lumbar spine is: ----- L1-L4(G/cm2): 1.325 T Score Values are as follows: ----- L1: 0.7 ----- L2: 0.6 ----- L3: 1.2 ----- L4: 2.0 ----- L1-L4: 1.2 Z Score Values are as follows: ----- L1: 1.6 ----- L2: 1.5 ----- L3: 2.1 ----- L4: 2.9 ----- L1-L4: 2.1 prev unavailable for comparison Bone mineral density about the R hip (g/cm2): 0.761 Bone mineral density about the L hip (g/cm2): 0.774 T Score values are as follows: -----R Neck: -2.0 -----L Neck: -1.9 -----R Total: -1.5 -----L Total: -1.5 Z Score values are as follows: -----R Neck: -0.9 -----L Neck: -0.8 -----R Total: -0.7 -----L Total: -0.7 prev unavailable for comparison FRAX%s: The graph provided illustrates a 11.1 % chance for a major osteoporotic fx and a 1.9 % chance for the hips probability for fx in 10 years time. IMPRESSION: Osteopenia (T Score between -2.5 and -1). There is slightly increased risk of fracture and the patient may be considered for treatment. Re-Screen 2-5 years. NOTE: T-SCORE=SD OF THE YOUNG ADULT MEAN.
== END | disposition home or self-care (01) ==
LOC: RADMAMWWP 11:32
PROVIDERS: ATTEND Emergency Medicine
DX: Z12.31 Encounter for screening mammogram for malignant neoplasm of breast (principal); Z13.820 Encounter for screening for osteoporosis; M85.89 Other specified disorders of bone density and structure, multiple sites; Z78.0 Asymptomatic menopausal state; Z80.3 Family history of malignant neoplasm of breast
CPT/HCPCS: 77063; 77067; 77080

== ENCOUNTER 2024-02-08 06:45 | Inpatient (IN) | payer OTHER ==
--- NOTE | 2024-02-08 07:02 | ED ---
General Adult HPI - General Chief complaint: Chest Pain Stated complaint: Chest Pain, Mental Health Time Seen by Provider: 02/08/24 06:48 Source: patient, EMS, RN notes reviewed Mode of arrival: EMS Limitations: no limitations - History of Present Illness Initial comments: 69-year-old female presents emergency department via EMS with multiple complaints. Patient called EMS stating that she is having issues with her schizophrenia. Patient states that she just does not feel well she answers very minimal questions at this time. She does state that she has been having chest pain for several days but hurts when she moves her touches her chest. She d enies any palpitations. Denies any nausea vomiting patient states she is suicidal but provides no other information. - Related Data Home Medications Medication Instructions Recorded Confirmed Chlorpheniramine Maleate 4 mg PO DAILY PRN 01/16/21 04/07/23 [Chlor-Trimeton] Cholecalciferol (Vitamin D3) 125 mcg PO DAILY 01/16/21 04/07/23 [Vitamin D3 (5000 Iu)] Furosemide [Lasix] 20 mg PO DAILY PRN 01/16/21 04/07/23 Levothyroxine Sodium [Synthroid] 75 mcg PO HS 01/16/21 04/07/23 Losartan [Cozaar] 50 mg PO DAILY 01/16/21 04/07/23 Pantoprazole [Protonix] 40 mg PO DAILY 01/16/21 04/07/23 Vitamin E 400 unit PO DAILY 01/16/21 04/07/23 cloZAPine [Clozaril] 200 mg PO HS 01/16/21 04/07/23 ARIPiprazole [Abilify] 5 mg PO HS 04/07/23 04/07/23 Acetaminophen Tab [Tylenol] 650 mg PO Q4H PRN 04/07/23 04/07/23 Cranberry 4200 Mg 4,200 mg PO DAILY 04/07/23 04/07/23 Folic Acid 0.4 mg PO DAILY 04/07/23 04/07/23 Vitamin B Complex With Vitamin C 1 tab PO HS 04/07/23 04/07/23 Zinc Gluconate [Zinc] 50 mg PO DAILY 04/07/23 04/07/23 bisacodyL [Dulcolax] 5 mg PO DAILY PRN 04/07/23 04/07/23 fluvoxaMINE [Luvox] 50 mg PO DAILY 04/07/23 04/07/23 hydrOXYzine HCL [Atarax] 25 mg PO HS 04/07/23 04/07/23 polyethylene glycoL 3350 [Miralax] 17 gm PO DAILY PRN 04/07/23 04/07/23 Previous Rx's Medication Instructions Recorded Aspirin 81 mg PO DAILY 30 Days chew 12/14/20 Melatonin 5 mg PO HS 30 Days tablet 12/14/20 Allergies Allergy/AdvReac Type Severity Reaction Status Date / Time aspirin Allergy Unknown Verified 02/08/24 06:52 Penicillins Allergy Unknown Verified 02/08/24 06:52 Review of Systems ROS Statement: Those systems with pertinent positive or pertinent negative responses have been documented in the HPI. ROS Other: All systems not noted in ROS Statement are negative. Past Medical History Past Medical History: CVA/TIA, GERD/Reflux, Hypertension, Osteoarthritis (OA), Thyroid Disorder Additional Past Medical History / Comment(s): Schizophrenia. History of Any Multi-Drug Resistant Organisms: ESBL Date of last positivie culture/infection: 05/15/22 ESBL E.coli MDRO Source:: Urine Past Surgical History: Hernia Repair, Hysterectomy, Tonsillectomy Past Psychological History: Schizophrenia Smoking Status: Unknown if ever smoked Past Alcohol Use History: None Reported Past Drug Use History: None Reported - Past Family History Mother Family Medical History: Cancer Additional Family Medical History / Comment(s): Osteoporosis Sister(s) Family Medical History: Cancer Additional Family Medical History / Comment(s): 2 of 4 with breast Father Family Medical History: Myocardial Infarction ([place]) Additional Family Medical History / Comment(s): Paternal aunt and cousin had schizophrenia General Exam General appearance: alert, in no apparent distress Head exam: Present: atraumatic, normocephalic, normal inspection Eye exam: Present: normal appearance, PERRL, EOMI. Absent: scleral icterus, conjunctival injection, periorbital swelling ENT exam: Present: normal exam, normal oropharynx, mucous membranes moist Neck exam: Present: normal inspection, full ROM. Absent: tenderness, meningi smus, lymphadenopathy Respiratory exam: Present: normal lung sounds bilaterally, chest wall tenderness. Absent: respiratory distress, wheezes, rales, rhonchi, stridor Cardiovascular Exam: Present: regular rate, normal rhythm, normal heart sounds. Absent: systolic murmur, diastolic murmur, rubs, gallop, clicks Neurological exam: Present: alert Course Vital Signs 02/08/24 02/08/24 06:46 09:12 Temperature 97.3 F L Pulse Rate 65 56 L Respiratory 16 16 Rate Blood Pressure 110/68 122/59 O2 Sat by Pulse 97 97 Oximetry EKG Findings - EKG Comments: EKG Findings:: EKG performed at 6: 48 sinus rhythm with first-degree block and noted right bundle with a rate of 64 [place] 237 QRS 151 QT/QTc 483/492 - EKG Results: EKG: interpreted by KATYA Medical Decision Making - Medical Decision Making Was pt. sent in by a medical professional or institution (, PA, PLY CUTTER, urgent care, hospital, or detention...) When possible be specific @ -No Did you speak to anyone other than the patient for history (EMS, parent, family, police, friend...)? What history was obtained from this source @ -No Did you review nursing and triage notes (agree or disagree)? Why? @ -I reviewed and agree with nursing and triage notes Were old charts reviewed (outside hosp., previous admission, EMS record, old EKG, old radiological studies, urgent care reports/EKG's, detention records)? Report findings @ -No old charts were reviewed Differential Diagnosis (chest pain, altered mental status, abdominal pain women, abdominal pain men, vaginal bleeding, weakness, fever, dyspnea, syncope, headache, dizziness, GI bleed, back pain, seizure, CVA, palpatations, mental health, musculoskeletal)? @ -Differential Mental Health Depression, anxiety, bipolar, psychosis, schizophrenia, borderline personality, situational depression, adjustment disorder, behavioral disorder, brain tumor, malingering, substance abuse, encephalopathy, medication reaction, dementia, hypothyroidism, degenerative neurologic disorder, lupus.... This is not meant to be all-inclusive list EKG interpreted by me (3pts min.). @ -As above X-rays interpreted by me (1pt min.). @ -Chest ray shows no acute cardiopulmonary process. CT interpreted by me (1pt min.). @ -None done U/S interpreted by me (1pt. min.). @ -None done What testing was considered but not performed or refused? (CT, X-rays, U/S, labs)? Why? @ -None What meds were considered but not given or refused? Why? @ -None Did you discuss the management of the patient with other professionals (professionals i.e. , PA, PLY CUTTER, lab, RT, psych nurse, social services specialist, trial lawyer, teacher, staff combat information center officer, employment case manager)? Give summary @ -EPS evaluated the patient recommended inpatient treatment for schizophrenia, depression, SI Was smoking cessation discussed for >3mins.? @ -No Was critical care preformed (if so, how long)? @ -No Were there social determinants of health that impacted care today? How? (Homelessness, low income, unemployed, alcoholism, drug addiction, transportation, low edu. Level, literacy, decrease access to med. care, retirement, rehab)? @ -No Was there de-escalation of care discussed even if they declined (Discuss DNR or withdrawal of care, Hospice)? DNR status @ -No What co-morbidities impacted this encounter? (DM, HTN, Smoking, COPD, CAD, Cancer, CVA, ARF, Chemo, Hep., AIDS, mental health diagnosis, sleep apnea, morbid obesity)? @ -None Was patient admitted / discharged? Hospital course, mention meds given and route, prescriptions, significant lab abnormalities, going to OR and other pertinent info. @ -Admitted patient was eval by EPS and will be admitted for psychiatric treatment. Patient did have full set of laboratory studies clued urinalysis with nonspecific findings. Patient does have 13 white cells in her urine urine culture was ordered patient is asymptomatic. Undiagnosed new problem with uncertain prognosis? @ -No Drug Therapy requiring intensive monitoring for toxicity (Heparin, Nitro, Insulin, Cardizem)? @ -No Were any procedures done? @ -No Diagnosis/symptom? @ -Suicide ideation, schizophrenia Acute, or Chronic, or Acute on Chronic? @ -Acute Uncomplicated (without systemic symptoms) or Complicated (systemic symptoms)? @ -Complicated Side effects of treatment? @ -No Exacerbation, Progression, or Severe Exacerbation? @ -No Poses a threat to life or bodily function? How? (Chest pain, [place], [place], pneumonia, PE, COPD, DKA, ARF, appy, cholecystitis, CVA, Diverticulitis, Homicidal, Suicidal, threat to staff... and all critical care pts) @ -Yes i patient is suicidal - Lab Data Result diagrams: 02/08/24 06:53 02/08/24 06:53 Lab Results 02/08/24 02/08/24 02/08/24 Range/Units 06:53 06:53 06:53 WBC 4.3 (3.8-10.6) k/uL RBC 3.94 (3.80-5.40) m/uL Hgb 12.0 (11.4-16.0) gm/dL Hct 36.0 (34.0-46.0) % MCV 91.3 (80.0-100.0) fL MCH 30.4 (25.0-35.0) pg MCHC 33.3 (31.0-37.0) g/dL RDW 13.8 (11.5-15.5) % Plt Count 161 (150-450) k/uL MPV 9.2 Neutrophils % 47 % Lymphocytes % 42 % Monocytes % 8 % Eosinophils % 0 % Basophils % 0 % Neutrophils # 2.0 (1.3-7.7) k/uL Lymphocytes # 1.8 (1.0-4.8) k/uL Monocytes # 0.4 (0-1.0) k/uL Eosinophils # 0.0 (0-0.7) k/uL Basophils # 0.0 (0-0.2) k/uL PT 11.4 (10.0-12.5) sec INR 1.0 (<1.2) APTT 23.3 (22.0-30.0) sec Sodium 140 (137-145) mmol/L Potassium 3.1 L (3.5-5.1) mmol/L Chloride 114 H (98-107) mmol/L Carbon Dioxide 19 L (22-30) mmol/L Anion Gap 7 mmol/L BUN 12 (7-17) mg/dL Creatinine 0.45 L (0.52-1.04) mg/dL Est GFR (CKD-EPI)AfAm >90 (>60 ml/min/1.73 sqM) Est GFR (CKD-EPI)NonAf >90 (>60 ml/min/1.73 sqM) Glucose 171 H (74-99) mg/dL Calcium 7.4 L (8.4-10.2) mg/dL Magnesium 1.5 L (1.6-2.3) mg/dL Total Bilirubin 0.6 (0.2-1.3) mg/dL AST 21 (14-36) U/L ALT 19 (4-34) U/L Alkaline Phosphatase 82 (38-126) U/L Troponin I (0.000-0.034) ng/mL Total Protein 5.2 L (6.3-8.2) g/dL Albumin 2.8 L (3.5-5.0) g/dL Urine Color Urine Appearance (Clear) Urine pH (5.0-8.0) Ur Specific Mcgrath (1.001-1.035) Urine Protein (Negative) Urine Glucose (UA) (Negative) Urine Ketones (Negative) Urine Blood (Negative) Urine Nitrite (Negative) Urine Bilirubin (Negative) Urine Urobilinogen (<2.0) mg/dL Ur Leukocyte Esterase (Negative) Urine WBC (0-5) /hpf Ur Squamous Epith Cells (0-4) /hpf Urine Mucus (None) /hpf Urine Opiates Screen (NotDetected) Ur Oxycodone Screen (NotDetected) Urine Methadone Screen (NotDetected) Ur Barbiturates Screen (NotDetected) U Tricyclic Antidepress (NotDetected) Ur Phencyclidine Scrn (NotDetected) Ur Amphetamines Screen (NotDetected) U Methamphetamines Scrn (NotDetected) U Benzodiazepines Scrn (NotDetected) Urine Cocaine Screen (NotDetected) U Marijuana (THC) Screen (NotDetected) Serum Alcohol <10 mg/dL 02/08/24 02/08/24 Range/Units 06:53 09:32 WBC (3.8-10.6) k/uL RBC (3.80-5.40) m/uL Hgb (11.4-16.0) gm/dL Hct (34.0-46.0) % MCV (80.0-100.0) fL MCH (25.0-35.0) pg MCHC (31.0-37.0) g/dL RDW (11.5-15.5) % Plt Count (150-450) k/uL MPV Neutrophils % % Lymphocytes % % Monocytes % % Eosinophils % % Basophils % % Neutrophils # (1.3-7.7) k/uL Lymphocytes # (1.0-4.8) k/uL Monocytes # (0-1.0) k/uL Eosinophils # (0-0.7) k/uL Basophils # (0-0.2) k/uL PT (10.0-12.5) sec INR (<1.2) APTT (22.0-30.0) sec Sodium (137-145) mmol/L Potassium (3.5-5.1) mmol/L Chloride (98-107) mmol/L Carbon Dioxide (22-30) mmol/L Anion Gap mmol/L BUN (7-17) mg/dL Creatinine (0.52-1.04) mg/dL Est GFR (CKD-EPI)AfAm (>60 ml/min/1.73 sqM) Est GFR (CKD-EPI)NonAf (>60 ml/min/1.73 sqM) Glucose (74-99) mg/dL Calcium (8.4-10.2) mg/dL Magnesium (1.6-2.3) mg/dL Total Bilirubin (0.2-1.3) mg/dL AST (14-36) U/L ALT (4-34) U/L Alkaline Phosphatase (38-126) U/L Troponin I <0.012 (0.000-0.034) ng/mL Total Protein (6.3-8.2) g/dL Albumin (3.5-5.0) g/dL Urine Color Yellow Urine Appearance Clear (Clear) Urine pH 6.5 (5.0-8.0) Ur Specific Mcgrath 1.045 H (1.001-1.035) Urine Protein Trace H (Negative) Urine Glucose (UA) Negative (Negative) Urine Ketones 2+ H (Negative) Urine Blood Negative (Negative) Urine Nitrite Negative (Negative) Urine Bilirubin Negative (Negative) Urine Urobilinogen <2.0 (<2.0) mg/dL Ur Leukocyte Esterase Moderate H (Negative) Urine WBC 13 H (0-5) /hpf Ur Squamous Epith Cells 1 (0-4) /hpf Urine Mucus Rare H (None) /hpf Urine Opiates Screen Not Detected (NotDetected) Ur Oxycodone Screen Not Detected (NotDetected) Urine Methadone Screen Not Detected (NotDetected) Ur Barbiturates Screen Not Detected (NotDetected) U Tricyclic Antidepress Detected H (NotDetected) Ur Phencyclidine Scrn Not Detected (NotDetected) Ur Amphetamines Screen Not Detected (NotDetected) U Methamphetamines Scrn Not Detected (NotDetected) U Benzodiazepines Scrn Detected H (NotDetected) Urine Cocaine Screen Not Detected (NotDetected) U Marijuana (THC) Screen Not Detected (NotDetected) Serum Alcohol mg/dL Disposition Clinical Impression: Schizophrenia, Suicidal ideation Disposition: TRANSFER TO PSYCH HOSP/UNIT Referrals: None,Stated [Primary Care Provider] - 1-2 days Time of Disposition: 14:57
[2024-02-08 07:15] LABS: Basophils % (A) 0 %; Eosinophils % (A) 0 %; Lymphocytes # (A) 1.8 k/uL (1.0-4.8); Lymphocytes % (A) 42 %; MCH 30.4 pg (25.0-35.0); MCHC 33.3 g/dL (31.0-37.0); MCV 91.3 fL (80.0-100.0); Mean Platelet Volume 9.2; Monocytes # (A) 0.4 k/uL (0-1.0); Monocytes % (A) 8 %; Neutrophils % (A) 47 %; Platelet Count 161 k/uL (150-450); RBC 3.94 m/uL (3.80-5.40); RDW 13.8 % (11.5-15.5); WBC 4.3 k/uL (3.8-10.6)
[2024-02-08 07:28] LABS: Partial Thromboplastin Time 23.3 sec (22.0-30.0); Prothrombin Time 11.4 sec (10.0-12.5)
[2024-02-08 07:38] LABS: ALT 19 U/L (4-34); AST 21 U/L (14-36); African American GFR (CKD) >90 (>60 ml/min/1.73 sqM); Albumin 2.8 g/dL (3.5-5.0); Alcohol <10 mg/dL; Alkaline Phosphatase 82 U/L (38-126); Anion Gap 7 mmol/L; Blood Urea Nitrogen 12 mg/dL (7-17); Calcium 7.4 mg/dL (8.4-10.2); Carbon Dioxide 19 mmol/L (22-30); Chloride 114 mmol/L (98-107); Glucose 171 mg/dL (74-99); Magnesium 1.5 mg/dL (1.6-2.3); Non-African American GFR(CKD) >90 (>60 ml/min/1.73 sqM); Potassium 3.1 mmol/L (3.5-5.1); Sodium 140 mmol/L (137-145); Total Bilirubin 0.6 mg/dL (0.2-1.3); Total Protein 5.2 g/dL (6.3-8.2)
--- NOTE | 2024-02-08 07:45 | XR ---
EXAMINATION TYPE: XR chest 2V DATE OF EXAM: 02/08/2024 COMPARISON: 04/07/2023 HISTORY: Shortness of breath TECHNIQUE: Frontal and lateral views of the chest are obtained. FINDINGS: Scattered senescent parenchymal changes noted. No evidence for infiltrate. No evidence for atelectasis. Heart size is stable. Mediastinal structures are stable and grossly unremarkable. No evidence for hilar prominence. Degenerative changes dorsal spine. IMPRESSION: 1. No evidence for acute pulmonary disease.
[2024-02-08 09:59] LABS: Appearance,Urine Clear (Clear); Bilirubin,Urine Negative (Negative); Blood,Urine Negative (Negative); Color,Urine Yellow; Glucose,Urine (UA) Negative (Negative); Ketones,Urine 2+ (Negative); Leukocyte Esterase,Urine Moderate (Negative); Mucus,Urine Rare /hpf; Nitrite,Urine Negative (Negative); PH, Urine 6.5 (5.0-8.0); Protein,Urine Trace (Negative); Specific Gravity,Urine 1.045 (1.001-1.035); Squamous Epithelial Cell,Urine 1 /hpf (0-4); Urobilinogen,Urine <2.0 mg/dL (<2.0); WBC,Urine 13 /hpf (0-5)
[2024-02-08 10:28] LABS: Amphetamine Screen,Urine Not Detected (NotDetected); Barbiturate Screen,Urine Not Detected (NotDetected); Benzodiazepines Screen,Urine Detected (NotDetected); Cocaine Screen,Urine Not Detected (NotDetected); Methadone Screen, Urine Not Detected (NotDetected); Opiate Screen,Urine Not Detected (NotDetected); Oxycodone Screen, Urine Not Detected (NotDetected); Phencyclidine Screen,Urine Not Detected (NotDetected); Tricyclic Antidepressant,Urine Detected (NotDetected); Urn Cannabinoid Scrn Not Detected (NotDetected)
[2024-02-08] MEDS: ONDANSETRON 4 MG/2 ML VIAL IVP STA (11:03)
[2024-02-08] MEDS: POTASSIUM CHLORIDE ER 20 MEQ TAB.ER PO STA (11:05)
[2024-02-08 19:46] VITALS: RESP 18
[2024-02-08] MEDS ORDERED: NON FORMULARY DRUG (Alendronate Sodium [Fosamax] 70 MG Tablet) PO SCH (22:45)
[2024-02-08 23:05] LABS: Glucose,Whole Blood 174 mg/dL (70-110)
[2024-02-08] MEDS: ONDANSETRON ODT 4 MG TAB PO STA (23:26)
[2024-02-08 23:41] VITALS: BP 148/84; PULSE 74; TEMP 98.5
[2024-02-09] MEDS ORDERED: MAG HYDROX/AL HYDROX/SIMETH 355 ML BOTTLE PO PRN
[2024-02-09] MEDS ORDERED: LORazepam 1 MG TAB PO PRN
[2024-02-09] MEDS ORDERED: ACETAMINOPHEN TAB 325 MG TAB PO PRN
[2024-02-09] MEDS ORDERED: LORazepam 2 MG/ML INJ IM PRN
[2024-02-09] MEDS ORDERED: IBUPROFEN 600 MG TAB PO PRN
[2024-02-09] MEDS ORDERED: LEVOTHYROXINE 75 MCG TAB PO SCH (06:30)
[2024-02-09] MEDS ORDERED: ZINC SULFATE 220 MG CAP PO SCH (09:00)
[2024-02-09] MEDS ORDERED: CHOLECALCIFEROL 125 MCG (5000 IU) TABLET PO SCH (09:00)
[2024-02-09] MEDS ORDERED: TERBINAFINE 250 MG TAB PO SCH (09:00)
[2024-02-09] MEDS ORDERED: diphenhydrAMINE 25 MG CAP PO PRN (09:00)
[2024-02-09] MEDS ORDERED: FOLIC ACID 1 MG TAB PO SCH (09:00)
[2024-02-09] MEDS ORDERED: VITAMIN E (DL,TOCOPHERYL ACET) 400 UNIT (180 MG) CAP PO SCH (09:00)
[2024-02-09] MEDS ORDERED: polyethylene glycoL 3350 17 GM POWD.PACK PO SCH (09:00)
[2024-02-09] MEDS ORDERED: PANTOPRAZOLE 40 MG TABLET PO SCH (09:00)
[2024-02-09] MEDS ORDERED: MAGNESIUM HYDROXIDE 2,400 MG/30 ML CUP PO PRN (09:00)
[2024-02-09] MEDS ORDERED: ATORVASTATIN 20 MG TAB PO SCH (09:00)
[2024-02-09] MEDS ORDERED: MELATONIN 5 MG TABLET PO SCH (21:00)
[2024-02-09] MEDS ORDERED: FOLIC ACID-VIT B COMPLEX-VIT C 1 CAP PO SCH (21:00)
[2024-02-09] MEDS ORDERED: hydrOXYzine HCL 25 MG TAB PO SCH (21:00)
[2024-02-09] MEDS ORDERED: ARIPiprazole 5 MG TAB PO SCH (21:00)
== END 2024-02-08 23:42 | disposition short-term general hospital (02) | DRG 885 ==
LOC: EC 06:45 → 3MHU 22:22 → UNDOADMIN 22:22 → 3MHU 22:51 → UNDOADMIN 23:38 → 4SSUR 23:38 → 3MHU 23:41 → UNDODISIN 23:42
PROVIDERS: ADMIT Psychiatry & Neurology Psychiatry; ATTEND Psychiatry & Neurology Psychiatry
DX: F20.9 Schizophrenia, unspecified (principal); R45.851 Suicidal ideations; I10 Essential (primary) hypertension; Z79.890 Hormone replacement therapy; Z79.899 Other long term (current) drug therapy; Z79.82 Long term (current) use of aspirin; Z88.6 Allergy status to analgesic agent; Z88.0 Allergy status to penicillin; Z86.73 Personal history of transient ischemic attack (TIA), and cerebral infarction without residual deficits
CPT/HCPCS: 36415; 71046; 80053; 80306; 80320; 81001; 82075; 83735; 84484; 85025; 85610; 85730; 87086; 87635; 93005; 96374; 99285

== ENCOUNTER 2024-02-08 23:37 | Inpatient (IN) | payer OTHER ==
--- NOTE | 2024-02-09 00:48 | CT ---
EXAM: CT Head Without Intravenous Contrast CLINICAL HISTORY: ITS.REASON CT Reason: unresponsive TECHNIQUE: Axial computed tomography images of the head/brain without intravenous contrast. CTDI is 49.2 mGy and DLP is 1197.4 mGy-cm. This CT exam was performed using one or more of the following dose reduction techniques: automated exposure control, adjustment of the mA and/or kV according to patient size, and/or use of iterative reconstruction technique. COMPARISON: No relevant prior studies available. FINDINGS: No acute intracranial hemorrhage. No midline shift or mass effect. The territorial sumner-white matter differentiation is maintained throughout. Age-related cerebral volume loss. Periventricular and subcortical white matter hypoattenuation, consistent with chronic microangiopathy. The visualized orbits appear grossly unremarkable. The calvarium is intact. The visualized paranasal sinuses and mastoid air cells are grossly clear. IMPRESSION: No acute intracranial hemorrhage, midline shift, or mass effect.
[2024-02-09] MEDS ORDERED: ACETAMINOPHEN TAB 325 MG TAB PO PRN (02:15)
[2024-02-09] MEDS ORDERED: NALOXONE 0.4 MG/ML 1 ML VIAL IV PRN (02:15)
[2024-02-09] MEDS ORDERED: LORazepam 2 MG/ML INJ IV PRN (02:15)
[2024-02-09] MEDS ORDERED: ONDANSETRON 4 MG/2 ML VIAL IVP PRN (02:15)
--- NOTE | 2024-02-09 02:27 | P.HPIM ---
History of Present Illness H&P Date: 02/09/24 Chief Complaint: Acute psychosis, collapse in the mental health unit 69-year-old female with schizophrenia hypertension hypothyroid Patient initially was admitted to the mental health unit for psych evaluation and management of acute psychosis secondary to schizophrenia however during the intake process she collapsed in the exam room was unresponsive and 18 was activated patient as seen on the mental health unit, she is aphasic does not follow commands. She is staring in the blanks no seizure-like activity. Patient does not respond to pain stimulation does not respond to tactile stimulation No further history of information available at this time patient has strong psych history with prior hospitalization to the mental health unit for acute psychosis review of systems Unable to obtain due to patient aphasic on exam Constitutional: No acute distress, opens eyes spontaneously does not follow any commands Eyes: Anicteric sclerae, moist conjunctiva, Pupils equal round reactive to light ENMT: NC/AT Neck: Supple, no masses, or JVD No carotid bruits No thyromegaly Lungs: Clear to auscultation Clear to percussion Normal respiratory effort, no accessory muscle use Cardiovascular: Heart regular in rate and rhythm, No murmurs, gallops, or rubs No peripheral edema Abdominal: Soft Nontender, no guarding, rebound or rigidity Abdomen moving with respiration Normoactive bowel sounds Extremities: No digital cyanosis No clubbing Pedal pulses intact and symmetrical Radial pulses intact and symmetrical No calf tenderness Psychiatric: Patient seems to be awake does not follow any commands Neuro patient does not follow any commands however during her exam is showing some catatonia features when lifting her arms or moving them and uncomfortable positions she would hold that position for few seconds and then start slowly dropping down Lymphatics: no palpable cervical or supraclavicular lymph nodes Past Medical History Past Medical History: CVA/TIA, GERD/Reflux, Hypertension, Osteoarthritis (OA), Thyroid Disorder Additional Past Medical History / Comment(s): Schizophrenia. History of Any Multi-Drug Resistant Organisms: ESBL Date of last positivie culture/infection: 05/15/22 ESBL E.coli MDRO Source:: Urine Past Surgical History: Hernia Repair, Hysterectomy, Tonsillectomy Past Anesthesia/Blood Transfusion Reactions: Unable to Obtain Past Psychological History: Schizophrenia Smoking Status: Unknown if ever smoked Past Alcohol Use History: None Reported Past Drug Use History: None Reported - Past Family History Mother Family Medical History: Cancer Additional Family Medical History / Comment(s): Osteoporosis Sister(s) Family Medical History: Cancer Additional Family Medical History / Comment(s): 2 of 4 with breast Father Family Medical History: Myocardial Infarction ([place]) Additional Family Medical History / Comment(s): Paternal aunt and cousin had schizophrenia Medications and Allergies Home Medications Medication Instructions Recorded Confirmed Type Aspirin 81 mg PO DAILY 30 Days chew 12/14/20 02/08/24 Rx Melatonin 5 mg PO HS 30 Days tablet 12/14/20 02/08/24 Rx Chlorpheniramine Maleate 4 mg PO DAILY PRN 01/16/21 02/08/24 History [Chlor-Trimeton] Cholecalciferol (Vitamin D3) 125 mcg PO DAILY 01/16/21 02/08/24 History [Vitamin D3 (5000 Iu)] Levothyroxine Sodium [Synthroid] 75 mcg PO DAILY 01/16/21 02/08/24 History Pantoprazole [Protonix] 40 mg PO DAILY 01/16/21 02/08/24 History Vitamin E 400 unit PO DAILY 01/16/21 02/08/24 History cloZAPine [Clozaril] 200 mg PO HS 01/16/21 02/08/24 History ARIPiprazole [Abilify] 5 mg PO HS 04/07/23 02/08/24 History Acetaminophen Tab [Tylenol] 650 mg PO Q4H PRN 04/07/23 02/08/24 History Folic Acid 0.4 mg PO DAILY 04/07/23 02/08/24 History Vitamin B Complex With Vitamin C 1 tab PO HS 04/07/23 02/08/24 History Zinc Gluconate [Zinc] 50 mg PO DAILY 04/07/23 02/08/24 History hydrOXYzine HCL [Atarax] 25 mg PO HS 04/07/23 02/08/24 History polyethylene glycoL 3350 [Miralax] 17 gm PO DAILY 04/07/23 02/08/24 History Alendronate Sodium [Fosamax] 70 mg PO Q7D 02/08/24 02/08/24 History Rosuvastatin [Crestor] 10 mg PO DAILY 02/08/24 02/08/24 History Terbinafine [LamISIL] 250 mg PO DAILY 02/08/24 02/08/24 History fluvoxaMINE MALEATE [Luvox] 100 mg PO DAILY 02/08/24 02/08/24 History Allergies Allergy/AdvReac Type Severity Reaction Status Date / Time aspirin Allergy Unknown Verified 02/08/24 15:13 Penicillins Allergy Unknown Verified 02/08/24 15:13 Physical Exam Vitals: Intake and Output 02/08/24 02/08/24 02/09/24 14:59 22:59 06:59 Other: Weight 84.368 kg Assessment and Plan Assessment: 69-year-old female with strong mental health history presented to our hospital for psych evaluation of her psychosis and schizophrenia however during the intake part at the mental health unit patient suddenly slumped down in the chair and collapsed was unresponsive however awake. She seems to be aphasic and a pathic of her surrounding I discussed case with ED doctor and accepted the admission to [facility] for [facility] and psych evaluation with anticipated length of stay less than 2 midnights Aphasia and unresponsiveness with some features of catatonia Fall precautions Bedside suicide sitter Psych eval Neurology eval CT of the brain without contrast no acute intracranial pathology Continue with neurochecks Monitor vital signs Cardiac monitoring Hypokalemia Potassium 3.1 Replace IV and follow-up levels Chronic conditions Hypothyroidism continue with levothyroxine Verify home medications Blood work was reviewed done earlier in the ED overall unremarkable White count 4.3, hemoglobin 12 Sodium 140 BUN 12 creatinine 0.45 Full code DVT prophylaxis Lovenox 40 mg subcu daily
[2024-02-09] MEDS: POTASSIUM CHLORIDE 10 MEQ in WATER FOR INJECTION 1 100ML.BAG IVPB SCH (04:23)
[2024-02-09] MEDS: SODIUM CHLORIDE 0.9% 1,000 ML IV SCH (04:23)
[2024-02-09] MEDS: LEVOTHYROXINE 75 MCG TAB PO SCH (05:41)
[2024-02-09] MEDS: ENOXAPARIN 40 MG/0.4 ML SYRINGE SQ SCH (08:13)
--- NOTE | 2024-02-09 08:45 | US ---
EXAMINATION TYPE: US carotid duplex BILAT DATE OF EXAM: 02/09/2024 COMPARISON: NONE CLINICAL INDICATION: Female, 69 years old with history of Syncope; AMS. TECHNIQUE: Carotid duplex ultrasound examination. Indirect Doppler criteria was utilized. FINDINGS: EXAM MEASUREMENTS: RIGHT: Peak Systolic Velocity (PSV) cm/sec ----- Right CCA: 61.4 ----- Right ICA: 76.8 ----- Right ECA: 112.1 ICA/CCA ratio: 1.3 RIGHT: End Diastole cm/sec ----- Right CCA: 9.8 ----- Right ICA: 18.6 ----- Right ECA: 13.7 LEFT: Peak Systolic Velocity (PSV) cm/sec ----- Left CCA: 83.6 ----- Left ICA: 84.2 ----- Left ECA: 149.0 ICA/CCA ratio: 1.0 LEFT: End Diastole cm/sec ----- Left CCA: 13.7 ----- Left ICA: 18.2 ----- Left ECA: 11.0 VERTEBRALS (direction of flow): Right Vertebral: Antegrade Left Vertebral: Antegrade Rhythm: Normal ROBOTIC MACHINE OPERATOR NOTES: Elevated left ECA velocity. No significant stenosis. IMPRESSION: No evidence for hemodynamically significant stenosis. Criteria for Assigning % of Stenosis / Diameter reduction (Estimation based on the indirect measurements of the internal carotid artery velocities (ICA PSV). 1. Normal (no stenosis)=ICA PSV < 125 cm/s: ratio < 2.0: ICA EDV<40 cm/s. 2. Less than 50% stenosis=ICA PSV < 125 cm/s: ratio < 2.0: ICA EDV<40 cm/s. 3. 50 to 69% stenosis=ICA PSV of 125 to 230 cm/s: ration 2.0 ? 4.0: ICA EDV 40-100 cm/s. 4. Greater than 70% stenosis to near occlusion= ICA PSV > 230 cm/s: ratio > 4.0: ICA EDV > 100 cm/s. 5. Near occlusion= ICA PSV velocities may be low or undetectable: variable ratio and ICA EDV. 6. Total occlusion=unable to detect flow.
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
[2024-02-09 13:30] VITALS: BMI 28.3
--- NOTE | 2024-02-09 15:04 | CA ---
Transthoracic Echo Report Name: Mary Vyas Age: 69 Gender: F : 1955 Exam Date: 02/09/2024 07:51 Exam Location: [facility] Ht (in): 68 Wt (lb): 185 Ordering Physician: Matilde Cordoba MD Attending/Referring Phys: Warp Doffer Saige Crawley RCS Procedure CPT: Indications: unresponsive Cardiac Hx: Technical Quality: Fair Contrast 1: Total Dose (mL): Contrast 2: Total Dose (mL): MEASUREMENTS (Male / Female) Normal Values 2D ECHO LV Diastolic Diameter PLAX 3.9 cm 4.2 - 5.9 / 3.9 - 5.3 cm LV Systolic Diameter PLAX 2.4 cm IVS Diastolic Thickness 1.0 cm 0.6 - 1.0 / 0.6 - 0.9 cm LVPW Diastolic Thickness 1.1 cm 0.6 - 1.0 / 0.6 - 0.9 cm LV Relative Wall Thickness 0.5 RV Internal Dim ED PLAX 2.7 cm LVOT Diameter 2.0 cm LV Diastolic Volume MOD BP 94.4 cm??? 67 - 155 / 56 - 104 cm??? LV Systolic Volume MOD BP 30.9 cm??? 22 - 58 / 19 - 49 cm??? LV Ejection Fraction MOD BP 67.3 % >= 55 % LV Cardiac Index MOD BP 2729.9 cm???/min???m??? LV Diastolic Volume MOD 4C 89.9 cm??? LV Systolic Volume MOD 4C 27.3 cm??? LV Ejection Fraction MOD 4C 69.6 % LV Cardiac Index MOD 4C 2686.9 cm???/min???m??? LV Diastolic Length 4C 9.0 cm LV Systolic Length 4C 7.3 cm LV Diastolic Volume MOD 2C 97.5 cm??? LV Systolic Volume MOD 2C 35.0 cm??? LV Ejection Fraction MOD 2C 64.1 % LV Cardiac Index MOD 2C 2683.9 cm???/min???m??? LV Diastolic Length 2C 8.8 cm LV Systolic Length 2C 7.3 cm LA Volume 58.6 cm??? 18 - 58 / 22 - 52 cm??? LA Volume Index 28.9 cm???/m??? 16 - 28 cm???/m??? DOPPLER AV Peak Velocity 175.8 cm/s AV Peak Gradient 12.4 mmHg AV Mean Velocity 122.2 cm/s AV Mean Gradient 6.7 mmHg AV Velocity Time Integral 30.0 cm LVOT Peak Velocity 144.3 cm/s LVOT Peak Gradient 8.3 mmHg LVOT Velocity Time Integral 23.1 cm LVOT Stroke Volume 71.8 cm??? LVOT Stroke Volume Index 36.3 ml/m??? LVOT Cardiac Index 3084.6 cm???/min???m??? AV Area Cont Eq vti 2.4 cm??? AV Area Cont Eq pk 2.5 cm??? MV Area PHT 4.8 cm??? Mitral E Point Velocity 65.7 cm/s Mitral A Point Velocity 118.0 cm/s Mitral E to A Ratio 0.6 MV Deceleration Time 159.3 ms PV Peak Velocity 130.4 cm/s PV Peak Gradient 6.8 mmHg FINDINGS Left Ventricle Left ventricular ejection fraction is estimated at 65-70 %. Mildly increased posterior wall thickness. Left ventricular cavity size normal. No obvious regional wall motion abnormalities. Right Ventricle Normal right ventricular size and function. Unable to estimate right ventricular systolic function. Right Atrium Normal right atrial size. Left Atrium Mildly increased left atrial volume. Mildly increased left atrial area. Mitral Valve Structurally normal mitral valve. No mitral stenosis, regurgitation or prolapse. Aortic Valve Trileaflet aortic valve. No aortic stenosis. No aortic regurgitation. Tricuspid Valve Structurally normal tricuspid valve. No tricuspid prolapse. No tricuspid stenosis. No tricuspid regurgitation. Pulmonic Valve Pulmonic valve not well visualized. No pulmonic stenosis. No pulmonic regurgitation. Pericardium No pericardial effusion. Aorta Normal size aortic root and proximal ascending aorta. CONCLUSIONS Normal LV size and function Previewed by: Dr. Herve Obregon MD (Electronically Signed) Final Date: 09 February 2024 15:03
--- NOTE | 2024-02-09 17:38 | P.CN ---
Psychiatric Consult - . Consult date: 02/09/24 Consult:: 02/09/24 17:35 CONSULTATION Reason for consult; Evaluation and management of Schizophrenia HPI: The patient transferred to medical floor after she had a syncopal episode during intake on the [facility]. The patient initially came to ER for multiple medical complains secondary to schizophrenia and then transferred to [facility] after initial work-up. She has history of Chronic Schizophrenia and has had numerous ps ychiatric admissions related to her Schizophrenia. She is in [facility] as an out-pt. According to home medications in the chart, she is taking Fluvoxamine 100 mg daily, Clozapine 200 mg HS, and Abilify 5mg HS. The patient is a poor historian. She did volunteer any information. She kept her eyes closed and did not respond to any questions. As per sitter, she the talks fine but chooses not talk. According to nursing staff, the patient has not been a problem on the unit. Her psychiatric medications have been held at this time. She only getting Ativan 0.5 mg IV q6hr MSE: The patient was alert but semi-attentive. Orientation could not be assessed. Patient was oppositional and uncooperative with this evaluation. She was calm. She was lying comfortably in bed. She appeared in no acute distress. Psychomotor activity was reduced. Speech was low toned. She mumbled few words occasionally. Mood could not be assessed. Affect: Flat SI or HI- none noticed Thought content- no overt delusions noted. Thought process- could not be assessed. Perceptual disturbance- No hallucinatory behavior noted. Cognition- Could not be assessed. Judgement- poor. Insight-poor. IMP: Chronic Schizophrenia with acute exacerbation REC: Hold Psychotropic medication currently. Continue Ativan 0.5 mg IV q6hr. The patient to be transferred to MHU after medical stabilization. I will follow the patient and titrate the psychotropic medications as needed. Luther Ordonez MD
[2024-02-09 19:32] LABS: Glucose,Whole Blood 78 mg/dL (70-110)
[2024-02-09 23:04] VITALS: BP 51/47; PULSE 98; RESP 20; TEMP 97.4
--- NOTE | 2024-02-09 23:11 | P.EN ---
code blue note patient was found in PEA , Code blue activated, CPR delivered following ACLS protocol, multiple round of epi given , patient continues to be in PEA. brief ROSC achieved , attempted transcutaneous pacing , but patient lost pulse again , total time of CPR was about 20 minutes, no ROSC achieved, patient . family notified , questions addressed
--- NOTE | 2024-02-10 02:00 | EEG ---
ELECTROENCEPHALOGRAM REPORT CLINICAL HISTORY: This is a 69-year-old woman with jerking of extremities and staring off. The video EEG is obtained to evaluate for seizure epileptiform activity. RELEVANT MEDICATION: The patient is not on any antiepileptic drugs. EEG TYPE: This is a routine 21-channel EEG with video using the 10/20 electrode placement system. DESCRIPTION: Wakefulness is only obtained. During awake state, the background consists of low-to- moderate voltage of 7 hertz activity. There is no physiological stage 2 sleep architecture. There is no focal slowing. Interictal and ictal is none. ACTIVATION PROCEDURE: Photic stimulation did not evoke a posterior driving response. There is no abnormality during the photic stimulation. Hyperventilation is not performed. CLINICAL INTERPRETATION: This is an abnormal routine EEG. The background slowing is suggestive of mild encephalopathy. There is no focal slowing, epileptiform discharge, or seizure on the EEG. Clinical correlation is recommended. COLEEN / JANET: [id number] / MTDD
--- NOTE | 2024-02-10 08:06 | P.DS ---
Providers Date of admission: 02/08/24 23:39 Expected date of discharge: 02/10/24 Attending physician: Luke Liu MD Consults: 02/09/24 02:17 Consult Physician Routine Consulting Provider: Shakeel Kenny Consult Reason/Comments: follow up from [facility] Do you want consulting provider notified?: Already Contacted 02/09/24 02:38 Consult Physician Routine Consulting Provider: Alfredo Isaacs Consult Reason/Comments: aphasia Do you want consulting provider notified?: Yes Primary care physician: Stated None Hospital Course: note: 69 year old F with PMH of TIA, GERD, hypothyroidism, schizophrenia initially admitted for mental health unit however during her intake process, she collapsed and became unresponsive. A-team was activated. She was seen and examined in the mental health unit by the rating clerk. She is aphasic does not follow commands. She is staring in the blanks with no seizure-like activity. Patient does not respond to pain stimulation and does not respond to tactile stimulation. She is admitted to the medical unit for workup of aphasia and unresponsiveness. Workup in the ED so far includes: BP 110/68, HR 65, RR 16, T 97.3F, 97% on RA. CBC unremarkable. Coag panel within normal limits. CMP K 3.1, Cl 114, bicarb 19, Cr 0.45, glu 171, Ca 7.4, alb 2.8. Mag 1.5. Troponin < 0.012. UA trace protein, 2+ ketones, moderate LE, WBC 13, SqEp 1, rare mucus. UDS + TCA, benzodiazepine. EtOH < 10. COVID negative. CXR negative. EKG sinus rhythm with first degree AV block, RBBB, left anterior fascicular block, QTc 492. CT head no acute findings. Neurology was consulted and recommended EEG, Depokote, MRI brain, TSH, B12 and Folate. Psychiatry consulted recommended no psychotropic medication and continue Ativan 0.5 mg IV Q6H PRN for agitation. Her potassium was replaced with KCl 40 meq IV. Carotid doppler negative for flow limiting stenosis. Echo EF 65-70%. EEG shows findings on mild encephalopathy without epileptiform discharge. URBAN NUNEZ was called at 7:27PM. Patient found to be in PEA arrest. Intubated but made difficult by copious coffee ground secretions. ROSC achieved, transcutaneous pacing attempted, patient lost pulse again. Total CPR time was around 20 minutes. Patient was pronounced on 7:48PM. Diagnosis: PEA arrest likely due to pulmonary aspiration Possible upper GI bleed Aphasia and unresponsiveness Ketonuria Abnormal UA Hypothyoridism GERD Hypokalemia Hypomagnesemia Plan - Discharge Summary Discharge Rx Participant: No New Discharge Prescriptions: No Action Aspirin 81 mg PO DAILY 30 Days chew Melatonin 5 mg PO HS 30 Days tablet Levothyroxine Sodium [Synthroid] 75 mcg PO DAILY Chlorpheniramine Maleate [Chlor-Trimeton] 4 mg PO DAILY PRN PRN Reason: Allergy Symptoms cloZAPine [Clozaril] 200 mg PO HS Vitamin B Complex With Vitamin C 1 tab PO HS Folic Acid 0.4 mg PO DAILY polyethylene glycoL 3350 [Miralax] 17 gm PO DAILY Zinc Gluconate [Zinc] 50 mg PO DAILY Rosuvastatin [Crestor] 10 mg PO DAILY Vitamin E 400 unit PO DAILY Cholecalciferol (Vitamin D3) [Vitamin D3 (5000 Iu)] 125 mcg PO DAILY Pantoprazole [Protonix] 40 mg PO DAILY Acetaminophen Tab [Tylenol] 650 mg PO Q4H PRN PRN Reason: Pain ARIPiprazole [Abilify] 5 mg PO HS hydrOXYzine HCL [Atarax] 25 mg PO HS Alendronate Sodium [Fosamax] 70 mg PO Q7D fluvoxaMINE MALEATE [Luvox] 100 mg PO DAILY Terbinafine [LamISIL] 250 mg PO DAILY Discharge Medication List Aspirin 81 mg PO DAILY 30 Days chew 12/14/20 [Rx] Melatonin 5 mg PO HS 30 Days tablet 12/14/20 [Rx] Chlorpheniramine Maleate [Chlor-Trimeton] 4 mg PO DAILY PRN 01/16/21 [History] Cholecalciferol (Vitamin D3) [Vitamin D3 (5000 Iu)] 125 mcg PO DAILY 01/16/21 [History] Levothyroxine Sodium [Synthroid] 75 mcg PO DAILY 01/16/21 [History] Pantoprazole [Protonix] 40 mg PO DAILY 01/16/21 [History] Vitamin E 400 unit PO DAILY 01/16/21 [History] cloZAPine [Clozaril] 200 mg PO HS 01/16/21 [History] ARIPiprazole [Abilify] 5 mg PO HS 04/07/23 [History] Acetaminophen Tab [Tylenol] 650 mg PO Q4H PRN 04/07/23 [History] Folic Acid 0.4 mg PO DAILY 04/07/23 [History] Vitamin B Complex With Vitamin C 1 tab PO HS 04/07/23 [History] Zinc Gluconate [Zinc] 50 mg PO DAILY 04/07/23 [History] hydrOXYzine HCL [Atarax] 25 mg PO HS 04/07/23 [History] polyethylene glycoL 3350 [Miralax] 17 gm PO DAILY 04/07/23 [History] Alendronate Sodium [Fosamax] 70 mg PO Q7D 02/08/24 [History] Rosuvastatin [Crestor] 10 mg PO DAILY 02/08/24 [History] Terbinafine [LamISIL] 250 mg PO DAILY 02/08/24 [History] fluvoxaMINE MALEATE [Luvox] 100 mg PO DAILY 02/08/24 [History] Patient Instructions/Handouts: Seizure/Epilepsy Discharge Instructions & Follow-Up Discharge Disposition: - Preliminary Cause of Preliminary Cause of : Pulmonary aspiration
--- NOTE | 2024-02-12 16:00 | CDI ---
Documentation Clarification Form Date: 02/12/2024 03:35:59 PM From: Sally Borjas RN, CCDS Phone: [phone] Admit Date: 02/08/2024 11:39:00 PM Patient Name: Mary Vyas Visit Number: [id number] Discharge Date: 02/09/2024 11:32:00 PM ATTENTION: The Clinical Documentation Specialists (CDI) and [facility] Coding Staff appreciate your assistance in clarifying documentation. Please respond to the clarification below the line at the bottom and electronically sign. The CDI & [facility] Coding staff will review the response and follow-up if needed. Please note: Queries are made part of the Legal Health Record. If you have any questions, please contact the author of this message via ITS. Dr. Luke Liu The patients principal diagnosis, the diagnosis that was chiefly responsible for the admission has not been clearly identified and clarification is requested. The patient presented from the mental health unit after collapsing and becoming unresponsive. She was aphasic and did not follow commands. History/Risk factors: TIA, GERD, hypothyroidism, schizophrenia. During her intake process, she collapsed and became unresponsive. She was admitted to the medical unit for workup of aphasia and unresponsiveness. Clinical Indicators: H&P: "Aphasia and unresponsiveness with some features of catatonia." 02/08 Neurology: "Unsure if truly epileptic seizure (states has history of seizure) versus nonepileptic especially with her psychiatric condition." 02/08 Psychiatry: "As per sitter, she talks fine but chooses not to talk. Chronic Schizophrenia with acute exacerbation." 02/08 Event note: "Of note upon my arrival patient had large amount of coffee- ground vomiting all over her and around the bed. FOLDING MACHINE OPERATOR during intubation also noted coffee-ground vomiting. There is a chance she aspirated prior to coding." Discharge summary: "PEA arrest likely due to pulmonary aspiration. Possible upper GI bleed. Aphasia and unresponsiveness. Ketonuria." 02/08 EEG: abnormal EEG. Suggestive of mild encephalopathy. 02/08 Vital Signs: BP 51/47 Treatment: 0.9 NS @ 130mL/hr. Psyche medications held. Bedside sitter. Code blue activated and unsuccessful Consults: see Neurology and Psychiatry above In your professional opinion, can you please clarify which diagnosis, after study, was the reason chiefly responsible for the admission? [ ] Metabolic encephalopathy [ ] Toxic encephalopathy [ ] Schizophrenia with catatonia [ ] Seizure [ ] GI Bleed [ ] Other, please specify [ X ] Unable to determine MTDD
--- NOTE | 2024-02-16 10:33 | CDI ---
Documentation Clarification Form Date: 02/12/2024 03:35:00 PM From: Sally Borjas RN, CCDS Phone: [phone] Admit Date: 02/08/2024 11:39:00 PM Patient Name: Mary Vyas Visit Number: [id number] Discharge Date: 02/09/2024 11:32:00 PM ATTENTION: The Clinical Documentation Specialists (CDI) and [facility] Coding Staff appreciate your assistance in clarifying documentation. Please respond to the clarification below the line at the bottom and electronically sign. The CDI & [facility] Coding staff will review the response and follow-up if needed. Please note: Queries are made part of the Legal Health Record. If you have any questions, please contact the author of this message via ITS. Dr. Luke Liu The patients principal diagnosis, the diagnosis that was chiefly responsible for the admission has not been clearly identified and clarification is requested. The patient presented from the mental health unit after collapsing and becoming unresponsive. She was aphasic and did not follow commands. History/Risk factors: TIA, GERD, hypothyroidism, schizophrenia. During her intake process, she collapsed and became unresponsive. She was admitted to the medical unit for workup of aphasia and unresponsiveness. Clinical Indicators: H&P: "Aphasia and unresponsiveness with some features of catatonia." 02/08 Neurology: "Unsure if truly epileptic seizure (states has history of seizure) versus nonepileptic especially with her psychiatric condition." 02/08 Psychiatry: "As per sitter, she talks fine but chooses not to talk. Chronic Schizophrenia with acute exacerbation." 02/08 Event note: "Of note upon my arrival patient had large amount of coffee- ground vomiting all over her and around the bed. REEL OPERATOR during intubation also noted coffee-ground vomiting. There is a chance she aspirated prior to coding." Discharge summary: "PEA arrest likely due to pulmonary aspiration. Possible upper GI bleed. Aphasia and unresponsiveness. Ketonuria." 02/08 EEG: abnormal EEG. Suggestive of mild encephalopathy. 02/08 Vital Signs: BP 51/47 Treatment: 0.9 NS @ 130mL/hr. Psyche medications held. Bedside sitter. Code blue activated and unsuccessful Consults: see Neurology and Psychiatry above In your professional opinion, can you please clarify which diagnosis, after study, was the reason chiefly responsible for the admission? [ ] Metabolic encephalopathy [ ] Toxic encephalopathy [ ] Schizophrenia with catatonia [ ] Seizure [ ] GI Bleed [ ] Other, please specify [X ] Unable to determine /// patient was awake but aphasic and does not follow commands, hence work up for seizure and stroke, but all returned negative. MTDD
== END 2024-02-09 23:32 | disposition expired | DRG 92 ==
LOC: 4SSUR 23:39 → UNDOADMIN 23:39 → 4SSUR 23:43 → UNDODISIN 02-09 23:32
PROVIDERS: ADMIT Internal Medicine; ATTEND Internal Medicine
PROC: 4A10X4Z Monitoring of Central Nervous Electrical Activity, External Approach (ICD-10-PCS; 2024-02-08)
PROC: 5A12012 Performance of Cardiac Output, Single, Manual (ICD-10-PCS; principal; 2024-02-09)
PROC: 0BH17EZ Insertion of Endotracheal Airway into Trachea, Via Natural or Artificial Opening (ICD-10-PCS; 2024-02-09)
DX: R47.01 Aphasia (principal); G93.49 Other encephalopathy; I45.2 Bifascicular block; K92.2 Gastrointestinal hemorrhage, unspecified; T17.818A Gastric contents in other parts of respiratory tract causing other injury, initial encounter; E03.9 Hypothyroidism, unspecified; E83.42 Hypomagnesemia; E86.0 Dehydration; E87.6 Hypokalemia; F06.1 Catatonic disorder due to known physiological condition; F20.9 Schizophrenia, unspecified; I46.8 Cardiac arrest due to other underlying condition; I44.0 Atrioventricular block, first degree; I10 Essential (primary) hypertension; K21.9 Gastro-esophageal reflux disease without esophagitis; Z79.890 Hormone replacement therapy; Z79.83 Long term (current) use of bisphosphonates; Z90.710 Acquired absence of both cervix and uterus; Z88.6 Allergy status to analgesic agent; Z87.19 Personal history of other diseases of the digestive system; Z88.0 Allergy status to penicillin; Z86.73 Personal history of transient ischemic attack (TIA), and cerebral infarction without residual deficits; Z79.899 Other long term (current) drug therapy; Z79.82 Long term (current) use of aspirin; Z82.49 Family history of ischemic heart disease and other diseases of the circulatory system
CPT/HCPCS: 70450; 92950; 93306; 93880; 95816